=== PATIENT | female | born 1990 | race Caucasian/White ===

== ENCOUNTER → 2017-11-19 13:29 | Outpatient (CLI) | payer OTHER, SELFPAY ==
[2017-11-19 15:34] LABS: Absolute Lymphocyte Count 2.36 X10^3/ul (0.83-4.51); Absolute Neutrophil Count 6.7 X10^3/uL (2.0-7.7); Basophil# 0.03 X10^3/uL; Basophil% 0.3 % (0-1); Eosinophil# 0.16 X10^3/uL; Eosinophils% 1.6 % (0-5); Hematocrit 37.9 % (37-47); Hemoglobin 12.5 g/dl (12.0-15.0); Lymphocyte # 2.36 X10^3/ul (4.0); Lymphocyte % 23.8 % (19-41); Mean Corpuscular Hgb 28.4 pg (27.0-32.0); Mean Corpuscular Volume 86.1 fL (81-99); Mean Platelet Vol. 9.9 fl (6.2-12.0); Monocyte# 0.67 X10^3/uL; Monocyte% 6.8 % (0-10); Neutrophil # 6.68 X10^3/uL (2.7-7.7); Neutrophil % 67.3 % (47-70); Platelet Count 285 K/mm3 (150-450); RBC Distribution Width CV 12.6 % (11.6-14.6); White Blood Count 9.9 K/mm3 (4.4-11.0)
[2017-11-19 15:38] LABS: POSITIVE COUNT NO; POSITIVE DIFFERENTIAL NO; POSITIVE MORPHOLOGY NO
[2017-11-20 11:24] LABS: HIV - WCH Non-Reactive (Nonreactive); Rubella IgG 130.5 IU/mL
[2017-11-21 10:20] LABS: HEPATITIS B SURFACE AG Negative (Negative)
[2017-11-22 01:20] LABS: Rapid Plasmin Reagin (RPR) NONREACTIVE (NONREACTIVE)
== END ==
PROVIDERS: Family Provider Family Medicine; PCP Family Medicine; Visit Provider Nurse Practitioner Women's Health
DX: Z34.00 Encounter for supervision of normal first pregnancy, unspecified trimester (principal)
CPT/HCPCS: 85025; 86592; 86703; 86762; 86850; 86900; 87340

== ENCOUNTER → 2017-11-19 17:34 | Outpatient (CLI) | payer OTHER, SELFPAY ==
[2017-11-19 20:21] LABS: Chlamydia Trachomatis by PCR Negative (Negative); Neisserai gonorrhoeae by PCR Negative (Negative); Probe Check PASS; Sample Adequacy Control PASS; Specimen Processing Control PASS
== END ==
PROVIDERS: Family Provider Family Medicine; PCP Family Medicine; Visit Provider Nurse Practitioner Women's Health
DX: Z34.00 Encounter for supervision of normal first pregnancy, unspecified trimester (principal)
CPT/HCPCS: 87086; 87491; 87591

== ENCOUNTER → 2017-11-26 13:22 | Outpatient (CLI) | payer OTHER, SELFPAY ==
--- NOTE | 2017-11-26 13:27 | US_ITS ---
STUDY: FIRST TRIMESTER OBSTETRICAL ULTRASOUND REASON FOR EXAM: Female, 26 years old. dating. LMP: September 24, 2017. TECHNIQUE: Transabdominal and Transvaginal PRIOR ULTRASOUND: None. FINDINGS: There is visualization of a single gestational sac in a normal intrauterine position. The mean sac diameter (MSD) measures 2.67 cm, indicating an estimated gestational age (EGA) of 7 weeks, 6 days. The gestational sac shape is within normal limits. There is a visualized yolk sac. The yolk sac measures 5.3 mm. The placenta is non-visualized. There is visualization of a live embryo. The crown-rump length (CRL) measures 1.77 cm, indicating an estimated gestational age (EGA) of 8 weeks, 2 days. There is demonstrated cardiac activity with a heart rate of 139 bpm. The estimated gestation age (EGA) by LMP is 9 weeks, 0 days. The estimated date of delivery (NEPTALI) by LMP is July 01, 2018. The estimated gestation age (EGA) by US is 8 weeks, 1 days. The estimated date of delivery (NEPTALI) by US is July 07, 2018. The uterus measures 11.6 x 6.4 cm x 5.7 cm. There is no demonstrated uterine fibroid. The cervix is closed. There is evidence of a 1 cm x 1.3 cm x 0.6 cm resolving subchorionic bleed. The right ovary was not visualized. The left ovary measures 3.3 cm x 3.5 cm x 1.6 cm. There is no left ovarian cyst. There is no visualized left adnexal mass or complex lesion. There is no fluid in the cul de sac. US/Init OB < 14Wks US IMPRESSION: Single live uterine gestation with mean gestational age of 8 weeks and 1 day. Electronically Signed: Logan Arnold MD at 14:24 EDT Tel [phone], Service support ,
== END ==
PROVIDERS: Family Provider Family Medicine; PCP Family Medicine; Visit Provider Obstetrics & Gynecology
DX: Z34.00 Encounter for supervision of normal first pregnancy, unspecified trimester (principal)
CPT/HCPCS: 76801

== ENCOUNTER → 2018-02-18 12:18 | Outpatient (CLI) | payer OTHER, SELFPAY | PROVIDERS: Family Provider Family Medicine; PCP Family Medicine; Visit Provider Nurse Practitioner Women's Health | DX: Z34.92 Encounter for supervision of normal pregnancy, unspecified, second trimester (principal); Z3A.20 20 weeks gestation of pregnancy | CPT/HCPCS: 76805 ==

== ENCOUNTER → 2018-03-04 17:26 | Outpatient (CLI) | payer OTHER, SELFPAY | PROVIDERS: Family Provider Family Medicine; PCP Family Medicine; Visit Provider Obstetrics & Gynecology | DX: R30.0 Dysuria (principal) | CPT/HCPCS: 87086 ==

== ENCOUNTER → 2018-03-12 14:45 | Outpatient (CLI) | payer OTHER, SELFPAY | PROVIDERS: Visit Provider Obstetrics & Gynecology | DX: O23.40 Unspecified infection of urinary tract in pregnancy, unspecified trimester (principal) | CPT/HCPCS: 87086 ==

== ENCOUNTER → 2018-04-07 17:09 | Outpatient (CLI) | payer OTHER, SELFPAY ==
[2018-04-07 18:04] LABS: Absolute Lymphocyte Count 2.57 X10^3/ul (0.83-4.51); Absolute Neutrophil Count 7.5 X10^3/uL (2.0-7.7); Basophil# 0.02 X10^3/uL; Basophil% 0.2 % (0-1); Eosinophils% 0.9 % (0-5); Hematocrit 32.7 % (37-47); Hemoglobin 10.8 g/dl (12.0-15.0); Lymphocyte # 2.57 X10^3/ul (4.0); Lymphocyte % 22.9 % (19-41); Mean Corpuscular Hgb 29.8 pg (27.0-32.0); Mean Corpuscular Volume 90.1 fL (81-99); Mean Platelet Vol. 9.3 fl (6.2-12.0); Monocyte# 0.98 X10^3/uL; Monocyte% 8.8 % (0-10); Neutrophil # 7.48 X10^3/uL (2.7-7.7); Neutrophil % 66.8 % (47-70); Platelet Count 228 K/mm3 (150-450); RBC Distribution Width CV 13.7 % (11.6-14.6); RBC Distribution Width SD 44.8 fl (35.1-43.9); Red Blood Count 3.63 M/mm3 (4.2-5.4); White Blood Count 11.2 K/mm3 (4.4-11.0)
[2018-04-07 18:10] LABS: POSITIVE COUNT NO; POSITIVE DIFFERENTIAL NO; POSITIVE MORPHOLOGY NO
[2018-04-07 18:19] LABS: Glucose Challenge Gest 1H 50g 78 mg/dL (70-140)
== END ==
PROVIDERS: Family Provider Family Medicine; PCP Family Medicine; Referring Provider Obstetrics & Gynecology; Visit Provider Obstetrics & Gynecology
DX: Z34.00 Encounter for supervision of normal first pregnancy, unspecified trimester (principal)
CPT/HCPCS: 36415; 82950; 85025

== ENCOUNTER → 2018-06-09 18:59 | Outpatient (CLI) | payer OTHER, SELFPAY ==
[2018-06-09 16:34] VITALS: BMI 29.8
--- OUTSIDE RECORDS SUMMARY | 2018-07-27 03:06 | XMS RPT_ITS ---
:1990 Author Organization [facility] Support Name Relationship Address Phone NICHOLAS COLON Unavailable [address] + [place] [address] SREE, KAYY Unavailable [address] + [place] [id number] [facility] Unavailable [address] + [place] [address] ALTENBURGER, NICHOLAS Unavailable [address] + [place] [address] SREE, KAYY Unavailable [address] + [place] [address] [facility] Unavailable [address] + [place] [address] ALTENBURGER, NICHOLAS Unavailable [address] + [place] [address] SREE, KAYY Unavailable [address] + [place] [address] [facility] Unavailable [address] + [place] [address] ALTENBURGER, NICHOLAS Unavailable [address] + [place] [address] SREE, KAYY Unavailable [address] + [place] [phone] [facility] Unavailable [address] + [place] [address] ALTENBURGER, NICHOLAS Unavailable [address] + [place] [address] SREE, KAYY Unavailable [address] + [place] [address] [facility] Unavailable [address] + [place] [address] ALTENBURGER, NICHOLAS Unavailable [address] + [place] [address] SREE, KAYY Unavailable [address] + [place] [address] [facility] Unavailable [address] + [place] [address] SREE, KAYY Unavailable [address] + [facility] [address] SREE, NICHELLE Unavailable [address] + [facility] [address] [facility] Unavailable [address] + [place] [address] ALTENBURGER, NICHOLAS Unavailable [address] + [place] [address] SREE, KAYY Unavailable [address] + [place] [address] [facility] Unavailable [address] + [place] [address] ALTENBURGER, NICHOLAS Unavailable [address] + [place] [address] SREE, KAYY Unavailable [address] + [place] [address] [facility] Unavailable [address] + [place] [address] ALTENBURGER, NICHOLAS Unavailable [address] + [place] [address] SREE, KAYY Unavailable [address] + [place] [address] [facility] Unavailable [address] + [place] [address] ALTENBURGER, NICHOLAS Unavailable [address] + [place] [address] SREE, KAYY Unavailable [address] + [place] [address] [facility] Unavailable [address] + [place] [address] SREE, KAYY Unavailable [address] + [place] [address] SREE, NICHELLE Unavailable [address] + [place] [address] [facility] Unavailable [address] + [place] [address] ALTENBURGER, NICHOLAS Unavailable [address] [facility] + [place] [address] SREE, KAYY Unavailable [address] + [place] [address] [facility] Unavailable [address] + [place] [address] ALTENBURGER, NICHOLAS Unavailable [address] + [place] [address] SREE, KAYY Unavailable [address] + [place] [address] [facility] Unavailable [address] + [place] [address] SREE, KAYY Unavailable [address] + [place] [address] SREE, NICHELLE Unavailable [address] + [place] [address] [facility] Unavailable [address] + [place] [address] ALTENBURGER, NICHOLAS Unavailable . + [place] [address] SREE, KAYY Unavailable [address] + [place] [address] WC Unavailable [address] + [place] [address] SREE, KAYY Unavailable [address] + [place] [address] SREE, NICHELLE Unavailable [address] + [place] [address] WC Unavailable [address] + [place] [address] ALTENBURGER, NICHOLAS Unavailable . + [place] [address] SREE, KAYY Unavailable [address] + [facility] [place] [address] [facility] Unavailable [address] + [place] [address] ALTENBURGER, NICHOLAS Unavailable . + [place] [address] SREE, KAYY Unavailable [address] + [facility] [place] [address] [facility] Unavailable [address] + [place] [address] ALTENBURGER, NICHOLAS Unavailable . + [place] [address] SREE, KAYY Unavailable [address] + [facility] [place] [address] [facility] Unavailable [address] + [place] [address] ALTENBURGER, NICHOLAS Unavailable Unavailable + SREE, KAYY Unavailable [address] + [facility] [place] [address] [facility] Unavailable [address] + [place] [address] ALTENBURGER, NICHOLAS Unavailable . + [place] [address] SREE, KAYY Unavailable [address] + [facility] [place] [address] [facility] Unavailable [address] + [place] [address] SREE, KAYY Unavailable [address] + [facility] [place] [address] SREE, NICHELLE Unavailable [address] + [facility] [place] [address] [facility] Unavailable [address] + [place] [address] SREE, KAYY Unavailable [address] + [facility] [place] [address] SREE, NICHELLE Unavailable [address] + [facility] [place] [address] WC Unavailable [address] + [place] [address] SREE, KAYY Unavailable [address] + [facility] [place] [address] SREE, NICHELLE Unavailable [address] + [place] [address] WC Unavailable [address] + [place] [address] SREE, AKYY Unavailable [address] + [facility] [place] [address] SREE, NICHELLE Unavailable [address] + [facility] [place] [address] WC Unavailable [address] + [place] [address] SREE, KAYY Unavailable [address] + [place] [address] SREE, NICHELLE Unavailable [address] + [facility] [place] [address] WC Unavailable [address] + [place] [address] SREE, KAYY Unavailable [address] + [facility] [place] [address] SREE, NICHELLE Unavailable [address] + [facility] [place] [address] WC Unavailable [address] + [place] [address] SREE, KAYY Unavailable [address] + [facility] [place] [address] SREE, NICHELLE Unavailable [address] + [facility] [place] [address] WC Unavailable [address] + [place] [address] SREE, KAYY Unavailable [address] + [facility] [place] [address] SREE, NICHELLE Unavailable [address] + [place] [address] [address] Un[address] + [place] [address] SREE, KAYY Unavailable [address] + [place] [address] SREE, NICHELLE Unavailable [address] + [place] [address] WC Unavailable [address] + [place] [address] SREE, KAYY Unavailable [address] + [place] [address] SREE, NICHELLE Unavailable [address] + [place] [id number] [facility] Unavailable [address] + [place] [address] SREE, KAYY Unavailable [address] + [place] [address] SREE, NICHELLE Unavailable [address] + [place] [id number] [facility] Unavailable [address] + [place] [address] SREE, KAYY Unavailable [address] + [place] [address] SREE, NICHELLE Unavailable [address] + [place] [id number] [facility] Unavailable [address] + [place] [address] SREE, KAYY Unavailable [address] + [place] [address] SREE, NICHELLE Unavailable [address] + [place] [id number] [facility] Unavailable [address] + [place] [address] SREE, KAYY Unavailable [address] + [place] [address] SREE, NICHELLE Unavailable [address] + [place] [id number] [facility] Unavailable [address] + [place] [address] SREE, KAYY Unavailable [address] + [place] [address] SREE, NICHELLE Unavailable [address] + [place] [id number] [facility] Unavailable [address] + [place] [address] Care Team Providers Name Role Phone Jennie Grover Attending Unavailable Jennie Grover Primary Care Unavailable Yani Campoverde Attending Unavailable JENNIE GROVER Referring Unavailable Marcanthony, Yani Attending Unavailable STENCEL, JENNIE Primary Care Unavailable Marcanthony, Yani Referring Unavailable Marcanthony, Yani Attending Unavailable STENCEL, JENNIE Referring Unavailable Julio, Wolf Attending Unavailable STENCEL, JENNIE Referring Unavailable Kavon, Karey Attending Unavailable STENCEL, JENNIE Referring Unavailable STENCEL, JENNIE Primary Care Unavailable Esopus, Karey Attending Unavailable STENCEL, JENNIE Primary Care Unavailable Marcanthony, Yani Attending Unavailable STENCEL, JENNIE Referring Unavailable Marcanthony, Yani Attending Unavailable STENCEL, JENNIE Referring Unavailable Marcanthony, Yani Attending Unavailable Marcanthony, Yani Referring Unavailable STENCEL, JENNIE Primary Care Unavailable Marcanthony, Yani Admitting Unavailable Marcanthony, Yani Admitting Unavailable Marcanthony, Yani Attending Unavailable Marcanthony, Yani Referring Unavailable STENCEL, JENNIE Primary Care Unavailable Marcanthony, Yani Consulting Unavailable Marcanthony, Yani Admitting Unavailable Esopus, Karey Attending Unavailable Marcanthony, Yani Referring Unavailable STENCEL, JENNIE Primary Care Unavailable Marcanthony, Yani Consulting Unavailable Marcanthony, Yani Admitting Unavailable Kavon, Karey Attending Unavailable Marcanthony, Yani Referring Unavailable STENCEL, JENNIE Primary Care Unavailable Marcanthony, Yani Consulting Unavailable Esopus, Karey Attending Unavailable STENCEL, JENNIE Primary Care Unavailable Esopus, Karey Referring Unavailable Marcanthony, Yani Attending Unavailable STENCEL, JENNIE Primary Care Unavailable Marcanthony, Yani Attending Unavailable STENCEL, JENNIE Referring Unavailable STENCEL, JENNIE Primary Care Unavailable Kavon, Karey Attending Unavailable STENCEL, JENNIE Referring Unavailable STENCEL, JENNIE Primary Care Unavailable Marcanthony, Yani Attending Unavailable STENCEL, JENNIE Referring Unavailable STENCEL, JENNIE Primary Care Unavailable Kavon, Karey Attending Unavailable STENCEL, JENNIE Referring Unavailable Marcanthony, Yani Attending Unavailable STENCEL, JENNIE Referring Unavailable Marcanthony, Yani Attending Unavailable STENCEL, JENNIE Referring Unavailable Marcanthony, Yani Attending Unavailable STENCEL, JENNIE Referring Unavailable Marcanthony, Yani Attending Unavailable STENCEL, JENNIE Referring Unavailable STENCEL, JENNIE Primary Care Unavailable Marcanthony, Yani Attending Unavailable STENCEL, JENNIE Referring Unavailable STENCEL, JENNIE Primary Care Unavailable Esopus, Karey Attending Unavailable STENCEL, JENNIE Primary Care Unavailable Marcanthony, Yani Attending Unavailable STENCEL, JENNIE Referring Unavailable STENCEL, GLEN ALLAN Primary Care Unavailable Marcanthony, Yani Attending Unavailable STENCEL, JENNIE Primary Care Unavailable Marcanthony, Yani Referring Unavailable ASSESSMENT, HEALTH RISK Attending Unavailable ASSESSMENT, HEALTH RISK Referring Unavailable STENCEL, JENNIE Primary Care Unavailable Marcanthony, Yani Attending Unavailable Marcanthony, Yani Attending Unavailable STENCEL, JENNIE Referring Unavailable Marcanthony, Yani Attending Unavailable Marcanthony, Yani Referring Unavailable STENCEL, JENNIE Primary Care Unavailable Marcanthony, Yani Attending Unavailable STENCEL, JENNIE Referring Unavailable Esopus, Karey Attending Unavailable STENCEL, JENNIE Referring Unavailable Marcanthony, Yani Attending Unavailable STENCEL, JENNIE Referring Unavailable Marcanthony, Yani Attending Unavailable STENCEL, JENNIE Referring Unavailable Marcanthony, Yani Admitting Unavailable Marcanthony, Yani Attending Unavailable Marcanthony, Yani Referring Unavailable STENCEL, JENNIE Primary Care Unavailable Marcanthony, Yani Attending Unavailable STENCEL, JENNIE Referring Unavailable Esopus, Karey Attending Unavailable STENCEL, JENNIE Referring Unavailable STENCEL, JENNIE Primary Care Unavailable PROBLEMS PROBLEMS DATE TYPE CONDITION / CODE ATTENDING STATUS SOURCE 06/16/2018 Unknown O23.43 - Marcanthony, Active [place] Unspecified [facility] infection of Hospital urinary tract in Repository , third trimester / O23.43(ICD-10) 06/16/2018 Unknown Z34.03 - Encounter Marcanthony, Active [place] for supervision of [facility] normal first Hospital , third Repository trimester / Z34.03(ICD-10) 06/16/2018 Unknown Z3A.37 - 37 weeks Marcanthony, Active [place] gestation of [facility] / Hospital Z3A.37(ICD-10) Repository 06/16/2018 Unknown O99.820 - Marcanthony, Active [place] Streptococcus B [facility] Hospital complicating Repository / O99.820(ICD-10) 06/10/2018 Unknown Z34.90 - Encounter Marcanthony, Active [place] for supervision of [facility] normal , Hospital unspecified, Repository unspecified trimester / Z34.90(ICD-10) 06/09/2018 Unknown Z3A.36 - 36 weeks Marcanthony, Active [place] gestation of [facility] / Hospital Z3A.36(ICD-10) Repository 06/02/2018 Unknown Z3A.35 - 35 weeks Marcanthony, Active [place] gestation of [facility] / Hospital Z3A.35(ICD-10) Repository 05/05/2018 Unknown O23.41 - Marcanthony, Active [place] Unspecified [facility] infection of Hospital urinary tract in Repository , first trimester / O23.41(ICD-10) 05/05/2018 Unknown Z3A.31 - 31 weeks Marcanthony, Active [place] gestation of [facility] / Hospital Z3A.31(ICD-10) Repository 04/07/2018 Unknown Z34.00 - Encounter Marcanthony, Active [place] for supervision of [facility] normal [facility] Hospital , Repository unspecified trimester / Z34.00(ICD-10) 04/07/2018 Unknown Z34.02 - Encounter Marcanthony, Active [place] for supervision of [facility] normal [facility] Hospital , second Repository trimester / Z34.02(ICD-10) 04/07/2018 Unknown Z3A.19 - 19 weeks Marcanthony, Active [place] gestation of [facility] / Hospital Z3A.19(ICD-10) Repository 03/13/2018 Unknown O23.40 - Marcanthony, Active [place] Unspecified [facility] infection of Hospital urinary tract in Repository , unspecified trimester / O23.40(ICD-10) 03/05/2018 Unknown R30.0 - Dysuria / Marcanthony, Active [place] R30.0(ICD-10) [facility] Repository 02/06/2018 Unknown Z23 - Encounter for Marcanthony, Active [place] immunization / [place] [address](ICD-10) Hospital Repository PROCEDURES PROCEDURES No Procedure Records FoundRESULTS RESULTS DISCHARGE INSTRUCTION Observed: 07/10/2018 Status: F Source: [place] 7:33 AM [facility] REPOSITORY [facility] Medical Records Department [address] [place] [address] Instructions for Home/Discharge Instructions 07/10/18 0733 MR#: [id number] Acct: [id number] Name: JED COLON Alfonso Rep #: [id number] : 1990 27 From: Karey Jacobson NP-C PCP: Jennie Grover MD Status: ADM IN Additional Instructions: If you experience any of the following, contact your healthcare provider. * Bleeding that soaks a pad every hour for 2 hours * Fever 100.4 or higher * Unrelieved incision or abdominal pain * Swelling, redness, discharge or bleeding from your incision or episiotomy site * Your incision begins to separate * Problems urinating (including inability to urinate or burning while urinating). * Visual changes * Severe headache * Flu-like symptoms * Pain or redness in one of both of your breasts * Pain, warmth, tenderness or swelling in your legs, especially the calf area * Frequent nausea and vomiting * Symptoms of depression or anxiety If you experience any of the following, call 911 or go to the nearest Emergency Room. * Chest pain * Problems breathing * Seizure activity * Partial or complete paralysis of a body part, slurred speech, weakness or drooping of the face, or a sudden inability to walk or hold your balance Allergies/Adverse Reactions: Allergies Penicillins Allergy (Verified 07/07/18 12:39) Unknown Medications to take at Discharge folic acid 800 mcg tablet 800 mcg PO QDAY 07/04/17 vitamin#30 30 mg iron-10 mg iron-folic acid 1 mg- omg3 capsule 1 cap PO DAILY cap 06/16/18 docusate sodium 100 mg capsule 100 mg PO DAILY 07/03/18 Ranitidine HCl [Zantac] 150 mg PO DAILY 07/07/18 Primary Care Physician: Jennie Grover MD [Primary Care Provider] - Test Results: Test results from this visit will be discussed in further detail at your follow-up appointment, if applicable. 07/10/18 0733 <Electronically signed by Karey YANEZ> Date Karey YANEZ CC: Jennie Grover MD Signed BOTTLE [facility]ER OFFICE VISIT Observed: 07/10/2018 Status: F Source: [place] REPORT 4:40 AM [facility] REPOSITORY [facility] [address] [place] [address] OFFICE VISIT Date of Service: 07/03/18 MR#: [id number] Acct: [id number] Name: BEBOJED N Rep #: [id number] : 1990 Provider: Yani Campoverde MD Age/Sex: 27/F Location: [facility] Status: Signed Intake Vital Signs07/03/18 Height 5 ft 10 in 07/03/18 Weight: 205 lb 6 oz 07/03/18 Body Mass Index (BMI) 29.5 07/03/18 Blood Pressure 120/82 H 06/03/18 Body Mass Index (BMI) 29.8 Intake Visit Reasons: 40 week ob Chief Complaint: est ob Manager Market Research Required: No Is patient in pain?: No Allergies Penicillins Allergy (Verified 07/07/18 12:39) Unknown Medications folic acid 800 mcg tablet 800 mcg PO QDAY 07/04/17 [History Confirmed 07/07/18] vitamin#30 30 mg iron-10 mg iron-folic acid 1 mg- omg3 capsule 1 cap PO DAILY cap 06/16/18 [History Confirmed 07/07/18] docusate sodium 100 mg capsule 100 mg PO DAILY 07/03/18 [History Confirmed 07/07/18] Ranitidine HCl [Zantac] 150 mg PO DAILY 07/07/18 [History Confirmed 07/07/18] Last Menstral Period: 09/24/17 Zika: Zika virus screening: Negative : No PFSH PFSH Surgical History History of tonsillectomy (Acute) Family History Grandfather Diabetes Social History Smoking Status: Never smoker alcohol intake: current details: social substance use type: does not use caffeine: No what type of physical activity do you participate in: none frequency: 1-2 times per week seatbelt use: always do you feel safe at home: Yes additional social history: 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 DatName GA/WeeksOutcome Route [facility] Yasmeen Aguirre LgAnesthesDel LocaProviderFOB e ht en ia tn 07/08/18Brynlee 40 live birNSVD Female [facility] JAYASHREE th - ful l term Delivery Date: 07/08/18 On 07/09/18 @ 09:02 Essence Gaytan PROM HPI 40 week ob: Details: JED COLON is a 27 year old who presents for routine OB visit. ACOG First Trimester First Trimester: Discussed Second Trimester Second Trimester: Signs and Symptoms of Labor, Selecting a care provider, Reproductive Life Planning, Care Planning, Depression/Anxiety and Intimate Partner Violence; discussed Tobacco Cessation Diagnostics Diagnostics Labs Blood Type O POSITIVE 07/07/18 Antibody Screen NEGATIVE 07/07/18 Hct 36.0 % (37-47) L 07/07/18 Hgb 11.6 g/dl (12.0-15.0) L 07/07/18 Glucose 1 Hr 50 gm 78 mg/dL (70-140) 04/07/18 Group B Strep DNA Cancelled 06/09/18 Rhogam given: No 07/09/18 Pap Smear Negative 04/14/14 Obstetrics Ultrasound 02/18/18 VZV IgG Antibody 292 index (Immune >165) 02/04/14 Rubella IgG Antibody 130.5 IU/mL 11/19/17 RPR NONREACTIVE (NONREACTIVE) 11/19/17 Hep Bs Antigen Negative (Negative) 11/19/17 Chlam trachomat DNA PCR Negative (Negative) 11/19/17 N.gonorrhoeae DNA (PCR) Negative (Negative) 11/19/17 Miscellaneous Test 07/04/17 Details: HIV: Urine Culture: Sequential Screen: NIPT Screen: Assessment AND Plan Problems 1. Encounter for supervision of normal first in third trimester Z34.00 PRR NEPTALI 07/07/18 gender suprise Spouse Nicholas 2. 38 weeks gestation of Z34.90 genetic, carrier, NTD screening declined. normal anatomy scan. 3. Urinary tract infection in mother during third trimester of O23.40 Repeat culture-neg Plan fht 140s patient seen no labor yet movement and labor precautions reviewed. ACOG trimester education reviewed and updated. see problem list details for updated plan management information and see below for orders placed at this visit. GA appropriate handout given. Orders Orders: Coding Level of Care Code OB Routine Diagnoses Encounter for supervision of normal first in third trimester Z34.00 38 weeks gestation of Z34.90 Urinary tract infection in mother during third trimester of O23.40 07/10/18 0440 <Electronically signed by Yani Campoverde MD> Date Yani Campoverde MD [facility] Signature: Date (if applicable) CC: OPERATIVE REPORT Observed: 07/09/2018 Status: F Source: [place] 4:43 AM [facility] REPOSITORY [facility] Medical Records Department [address] [place] [address] Operative Report 07/08/18 0809 MR#: [id number] Acct: [id number] Name: JED COLON Rep #: [id number] : 1990 27 From: Yani Campoverde MD PCP: Jennie Grover MD Status: ADM IN [id number] - Problem List (1) PROM (premature rupture of membranes) Status: Acute (2) GBS (group B Streptococcus carrier), +RV culture, currently Status: Acute Comment: treat in labor with clindamycin (3) UTI (urinary tract infection) during Status: Acute Qualifiers: Comment: Repeat culture-neg (4) Status: Acute Qualifiers: Comment: genetic, carrier, NTD screening declined. normal anatomy scan. (5) Supervision of normal first Status: Acute Qualifiers: Comment: PRR NEPTALI 07/07/18 gender suprise Spouse Nicholas Vaginal Delivery Maternal Presentation: Spontaneous Rupture of Membranes prom with induction of labor with cytotec Method of Induction: Cytotec Medical Reason for Induction: Premature Rupture of Membranes Amniotic Membrane Rupture Type: Spontaneous at home Amniotic Fluid Description: Clear Final NEPTALI: 07/07/18 Gestational age: 40 Weeks and 1 Days Date of Procedure: 07/08/18 Pre-Operative Diagnosis: prom Post-Operative Diagnosis: prom Surgery/ Procedure Performed: Spontaneous Vaginal Delivery Type of Anesthesia: None Description of Procedure: Patient began pushing and delivered the head in the OREN presentation. The head was delivered atraumatically . The anterior and posterior shoulders delivered without complication followed by the rest of the and the was placed on the maternal abdomen. Delayed cord clamping was employed for approximately 60 seconds. Cord was clamped and cut and gentle traction was applied to the cord and the placenta delivered spontaneously immediately following it was noted to be intact with three-vessel cord. The perineum and vagina were inspected and noted to have no laceration. mild uterine atony was noted and bimanual massage and methergine were given. EBL was 500 cc. Patient and tolerated delivery well. Presentation: OREN Placental Delivery Description: Spontaneous Placenta Disposition: [facility] Cord Vessel Description: 3 Vessels Cord Entanglement: None Estimated Blood Loss: 500 A gender: Female Episiotomy Description: None Laceration: None Medications given after delivery: IV Pitocin, IM Methergin Complications: - - mild uterine atony 07/09/18 0443 <Electronically signed by Yani Campoverde MD> Date Yani Campoverde MD CC: Jennie Grover MD; Yani Campoverde MD Signed HISTORY AND PHYSICAL Observed: 07/08/2018 Status: F Source: [place] EXAM 8:09 AM [facility] REPOSITORY [facility] Medical Records Department [address] [place] [address] History and Physical 07/08/18 0807 MR#: [id number] Acct: [id number] Name: JED COLON Rep #: [id number] : 1990 27 From: Yani Campoverde MD PCP: Jennie Grover MD Status: ADM IN Location: [id number] - Problem List (1) PROM (premature rupture of membranes) Status: Acute (2) GBS (group B Streptococcus carrier), +RV culture, currently Status: Acute Comment: treat in labor with clindamycin (3) UTI (urinary tract infection) during Status: Acute Qualifiers: Comment: Repeat culture-neg (4) Status: Acute Qualifiers: Comment: genetic, carrier, NTD screening declined. normal anatomy scan. (5) Supervision of normal first Status: Acute Qualifiers: Comment: PRR NEPTALI 07/07/18 gender suprise Spouse Nicholas History Date of Admission: 07/07/18 Final NEPTALI: 07/07/18 Gestational age: 40 Weeks and 1 Days History of this : This is a 27 year-old, at 40 weeks gestational age present swith clear ROM 9:30 am 07/07/18. she denie sany vb and is having occasional ctx. she has had an uncomplicated Surgical History: Surgical History (Last Reviewed 07/03/18 @ 09:36 by Minnie Rivera) History of tonsillectomy Z98.890, Z90.89 Allergies Penicillins Allergy (Verified 07/07/18 12:39) Unknown Home Medications: Home Medications folic acid 800 mcg tablet 800 mcg PO QDAY 07/04/17 vitamin#30 30 mg iron-10 mg iron-folic acid 1 mg- omg3 capsule 1 cap PO DAILY cap 06/16/18 docusate sodium 100 mg capsule 100 mg PO DAILY 07/03/18 Ranitidine HCl [Zantac] 150 mg PO DAILY 07/07/18 Smoking Status: Never smoker Alcohol: None Number of Fetus(es): 1 Heart Tracin moderate variability reactive no decelerations category I tracing TOCO Analysis: irregular History Past Pregnancies: Past Pregnancies Delivery Name GA/Weeks Outcome Route WeiInfant GeLabor LenAnesthesiDelivery Provider FOB Date [facility] Location Labs: Mom[facility] Labs AND Results WBC 9.3 RBC 3.99 L Hgb 11.6 L Hct 36.0 L MCV 90.2 MCH 29.1 Course Did the patient receive Yes care? Labs Blood Type: O Current Obstetrical History Gestational Diabetes No Incompetent Cervix No Infertility No IUGR No Macrosomia No Hypertension/Pre-eclampsia No Placenta Previa/Abruption No PTL/PROM No Uterine anomaly No Oligohydramnios No Polyhydramnios No Multiple gestation No Past Medical History Asthma No Diabetes No Hypertension No Heart disease No Mitral valve prolapse No Neurologic/Seizure disorder/ No Migraines Kidney disease No Liver disease No Varicosities No Clotting disorders/Hx of DVT No Thyroid Dysfunction No Other medical diseases No Psychiatric disorders No Major trauma No Abnormal PAP smear No Sleep apnea No Mammogram in the last 2 years No Social History Marital Status: Alleged father Nicholas Colon Hx Smoking No Smoking Status Never smoker How long have you used N/A substances (years)? What date/time did you last N/A use any of the above? Have you had any previous N/A inpatient or outpatient treatment Expected Infant Delivery Method: Spontaneous Vaginal Review of Systems Constitutional: Denies: Fever, Malaise Eyes: Denies: Blurred vision, Vision Change HEENT: Denies: Head Aches, Visual Changes Cardiovascular: Denies: Chest Pain, Palpitations Respiratory: Denies: Cough, Shortness of Breath, Wheezing Gastrointestinal: Denies: Abdominal Pain, Diarrhea, Nausea, Vomiting Genitourinary: Denies: Dysuria, Hematuria Musculoskeletal: Denies: Joint Pain, Muscle pain Skin: Denies: Lesions, Rash Neurological: Denies: Blurred vision, Focal weakness, Headaches Psychiatric: Denies: Anxiety, Depression Endocrine: Denies: Heat/ Cold Intolerance Hematologic/ Lymphatic: Denies: Easy Bruising, Easy Bleeding Physical Exam General: Alert, Cooperative, No apparent distress HEENT: Atraumatic, Normocephalic. Negative for: Thyromegaly, Lymphadenopathy Cardiovascular: Regular rate Lungs: Normal air movement Abdomen: Soft, Non Tender, Gravid Neurological: Deep Tendon Reflexes 2+/4 and Symmetrical, Neuro grossly intact. 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 Negative for: Vulvar lesions Estimated gestational size: Appropriate for gestational size Presentation: Cephalic Assessment/Plan All Active Problems (Last Reviewed 07/03/18 @ 09:36 by Minnie Rivera) PROM (premature rupture of membranes) (Acute) Gastroenteritis (Acute) GBS (group B Streptococcus carrier), +RV culture, currently (Acute) UTI (urinary tract infection) during (Acute) (Acute) Supervision of normal first (Acute) This is a 27 year-old, , at 40 weeks gestational age presents PROM Patient presents PROM- recommend cytotec and then plan expectant management for , pitocin PRN if needed]. Pain management: minimal intervention. GBS positive plan IV clindamycin due to sensitivities. Management of any complications: none I have reviewed the [facility] and made any clinically relevant updates. 07/08/18 0809 <Electronically signed by Yani Campoverde MD> Date [facility] Campoverde MD [facility] Signature: Date (if applicable) CC: Jennie Grover MD; Yani Campoverde MD Signed CBC-COMPLETE BLOOD CNT Collected: 07/07/2018 Status: F Source: [place] NO DIFF 1:40 PM [facility] REPOSITORY TYPE CODE TESTS RESULT OUT OF RANGE REFERENCE UNITS LAB L100.1000 4.4-11.0 K/mm3 Normal WBC 9.3 LAB L100.1200 4.2-5.4 M/mm3 Low RBC 3.99 LAB L100.1300 12.0-15.0 g/dl Low HGB 11.6 LAB L100.1400 37-47 % Low HCT 36.0 LAB L100.1500 81-99 fL Normal MCV 90.2 LAB L100.1600 27.0-32.0 pg Normal MCH 29.1 LAB L100.1700 32-36 g/gl Normal MCHC 32.2 LAB L100.1810 11.6-14.6 % Normal RDW CV 13.5 LAB L100.1820 35.1-43.9 fl High RDW SD 44.3 LAB L100.1900 150-450 K/mm3 Normal PLT 266 LAB L100.2000 6.2-12.0 fl Normal MPV 9.9 Performed By: #### L100.0500 #### [facility] [address] [place], [place], [address] TYPE AND SCREEN Collected: 07/07/2018 Status: F Source: [place] 1:40 PM [facility] REPOSITORY Order Comment: Reason for Type AND Screen/Red Cells: ROUTINE TYPE CODE TESTS RESULT OUT OF RANGE REFERENCE UNITS LAB B10.0800 O Normal BLOOD TYPE GEL POSITIVE LAB B100.4000 Normal Antibody NEGATIVE Screen Performed By: #### B101.7450 #### [facility] [address] [place], [address] (ROM) RUPTURE OF Collected: 07/07/2018 Status: F Source: [place] [facility] 12:40 PM [facility] REPOSITORY TYPE CODE TESTS RESULT OUT OF REFERENCE UNITS RANGE LAB L205.1310 Negative High ROM POSITIVE Result Comment: Amniotic fluid present indicates rupture of Membranes. RESULTS CALLED TO JAYASHREE 07/07/18 Gianna Guerra. REPORT READ BACK BY JAYASHREE . Performed By: #### L205.1000 #### [facility] [address] [place], [address] BOTTLE PACKER OFFICE VISIT Observed: 06/26/2018 Status: F Source: [place] REPORT 5:02 PM [facility] REPOSITORY [facility] [address] [place] [address] OFFICE VISIT Date of Service: 06/26/18 MR#: [id number] Acct: [id number] Name: JED COLON Rep #: [id number] : 1990 Provider: Yani Campoverde MD Age/Sex: 27/F Location: [facility] Status: Signed Intake Vital Signs06/26/18 Body Mass Index (BMI) 29.8 06/26/18 Height 5 ft 10 in 06/26/18 Weight: 207 lb 5 oz 06/26/18 Body Mass Index (BMI) 29.7 06/26/18 Blood Pressure 114/78 Intake Visit Reasons: est ob 39 weeks Chief Complaint: Est OB Accompanied by: Is patient in pain?: No Allergies Penicillins Allergy (Verified 06/26/18 16:20) Unknown Medications folic acid 800 mcg tablet 800 mcg PO QDAY 07/04/17 [History Confirmed 06/26/18] acetaminophen 325 mg tablet 325 mg PO Q6H PRN 03/04/18 [History Confirmed 06/26/18] vitamin#30 30 mg iron-10 mg iron-folic acid 1 mg- omg3 capsule cap PO cap 06/16/18 [History Confirmed 06/26/18] ondansetron HCl 4 mg tablet 4 mg PO TID-QID PRN #20 tab 06/17/18 [Rx Confirmed 06/26/18] Last Menstral Period: 09/24/17 Zika: Zika virus screening: Negative : No PFSH PFSH Surgical History History of tonsillectomy (Acute) Family History Grandfather Diabetes Social History Smoking Status: Never smoker alcohol intake: current details: social substance use type: does not use caffeine: No what type of physical activity do you participate in: none frequency: 1-2 times per week seatbelt use: always do you feel safe at home: Yes 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 OB Visit NEPTALI Calculator Estimated Delivery Date 07/07/18 Based on Ultrasound Date 11/26/17 Current WG 38w 3d Number 1 Expected Delivery Route/Plan Specific Issue/Plans flu vaccine: yes minichart given: yes tdap vaccine: given rhogam: na LARC form signed: declined labor support person: Nicholas pain management: minimal intervention cut cord/dad catch: cut yes, maybe : yes PP control planned: condoms special requests: none Initial Weight: 195 lb Date Weight BP Urine PrFHR FuHt Pres MoCTX DilationFetal StVisit NoProviderComments E ot v te GA G Effac lucose ed Visit Notes Visit Date: 06/26/18 no vb lof good fm no regular ctx Yani Campoverde MD on 06/26/18 no vb lof good fm no regular ctx Yani Campoverde MD on 06/26/18 Visit Date: 06/16/18 no vb lof good fm no regular ctx. 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 Now just feels weak and foggy. Karey Jacobson NP-C on 05/01/18 Visit Date: 04/21/18 no vb lof good fm no regular ctx Yani Campoverde MD on 04/23/18 Visit Date: 04/07/18 no vb cramping lof good fm noregualr ctx Yani Campoverde MD on 04/07/18 Visit Date: 03/12/18 no vb cramping. discussed weight gain Yani Campoverde MD on 03/12/18 Visit Date: 03/04/18 No visit notes to display Visit Date: 02/12/18 no vb cramping us scheduled Yani Campoverde MD on 02/12/18 Visit Date: 01/16/18 Doing well. No longer with dizziness or nausea. No VB, LOF. RENATA Harris on 01/16/18 ACOG First Trimester First Trimester: Discussed Second Trimester Second Trimester: Signs and Symptoms of Labor, Selecting a care provider, Reproductive Life Planning, Care Planning, Depression/Anxiety and Intimate Partner Violence; discussed Tobacco Cessation Diagnostics Diagnostics Labs Hct 32.7 % (37-47) L 04/07/18 Hgb 10.8 g/dl (12.0-15.0) L 04/07/18 Glucose 1 Hr 50 gm 78 mg/dL (70-140) 04/07/18 Group B Strep DNA Cancelled 06/09/18 Details: HIV: Urine Culture: Sequential Screen: NIPT Screen: Assessment AND Plan Problems 1. GBS (group B Streptococcus carrier), +RV culture, currently O99.820 treat in labor with clindamycin 2. Urinary tract infection in mother during third trimester of O23.43 Repeat culture-neg 3. 38 weeks gestation of Z3A.38 genetic, carrier, NTD screening declined. normal anatomy scan. 4. Encounter for supervision of normal first in third trimester Z34.03 PRR NEPTALI 07/07/18 gender suprise Spouse Nicholas 5. Gastroenteritis K52.9 Plan ACOG trimester education reviewed and updated. see problem list details for updated plan management information and see below for orders placed at this visit. [place] appropriate handout given. Coding Level of Care Code OB Routine Diagnoses GBS (group B Streptococcus carrier), +RV culture, currently O99.820 Urinary tract infection in mother during third trimester of O23.43 Trimester: third trimester 38 weeks gestation of Z3A.38 Weeks of gestation: 38 weeks Encounter for supervision of normal first in third trimester Z34.03 Trimester: third trimester Gastroenteritis K52.9 06/26/18 1702 <Electronically signed by Yani Campoverde MD> Date Yani Campoverde MD Cosigner Signature: Date (if applicable) CC: URGENT CARE VISIT Observed: 06/17/2018 Status: F Source: PISECO REPORT 6:53 PM [facility] REPOSITORY [facility] [address] [place] [address] OFFICE VISIT Date of Service: 06/17/18 MR#: [id number] Acct: [id number] Name: JED COLON Rep #: [id number] : 1990 Provider: Wolf REID Age/Sex: 27/F Location[place] [facility] Status: Signed Intake Vital Signs06/17/18 Body Mass Index (BMI) 29.8 06/17/18 Height 5 ft 10 in 06/17/18 Weight: 214 lb 06/17/18 Body Mass Index (BMI) 30.7 06/17/18 Blood Pressure 136/84 H 06/17/18 Respiratory Rate 14 Intake Visit Reasons: FLU/ 37 WKS Chief Complaint: FLU? Manager Market Research Required: Yes Accompanied by: OTHER Is patient in pain?: No Allergies Penicillins Allergy (Verified 06/17/18 18:05) Unknown Medications folic acid 800 mcg tablet 800 mcg PO QDAY 07/04/17 [History Confirmed 06/17/18] acetaminophen 325 mg tablet 325 mg PO Q6H PRN 03/04/18 [History Confirmed 06/17/18] vitamin#30 30 mg iron-10 mg iron-folic acid 1 mg- omg3 capsule cap PO cap 06/16/18 [History Confirmed 06/17/18] ondansetron HCl 4 mg tablet 4 mg PO TID-QID PRN #20 tab 06/17/18 [Rx Confirmed 06/17/18] PFSH Surgical History History of tonsillectomy (Acute) Family History Grandfather Diabetes Social History Smoking Status: Never smoker alcohol intake: current details: social substance use type: does not use caffeine: No what type of physical activity do you participate in: none frequency: 1-2 times per week seatbelt use: always do you feel safe at home: Yes 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 Details: JED COLON, is a 27 F who presents to the office today for concern for possible flu. Patient states that over the past 2 days she has had nausea, vomiting and diarrhea along with loss of appetite. She states she is concerned as she is 37 weeks and wants to make sure she does not have the flu. She reports that the vomiting has resolved today however she continues to have nausea and diarrhea. She tried to eat some saltine crackers earlier today which resulted in diarrhea. She has been able to drink small amounts of fluids however not able to drink normally. She also reports body aches and muscle stiffness. She has had no fever, chills, sweats. No shortness of breath, difficulty breathing or chest pain. ROS Const Constitutional: Positive for body ache; no chills, fever(s), fatigue or abnormal sleep pattern ENT ENT: No ear pain, nasal congestion, nasal discharge or sore throat Resp Respiratory: No shortness of breath, chest congestion, cough or wheezing Cardio Cardiology: No chest pain at rest, chest pain with exertion or shortness of breath Gastro GI: Positive for diarrhea, nausea/dyspepsia, vomiting and cramping; no Vomiting blood/hematemesis or Black,tarry stools Skin Skin: No wounds or lesions Neuro Neurology: No behavioral changes or confusion Psych Psychiatric: No abnormal sleep pattern, No behavioral changes, No confusion Endo Endocrine: No fatigue Aller/Imm Allergy/Immunologic: No wheezing Exam Const General: cooperative, healthy appearing [facility] Head: normocephalic, atraumatic Ears: hearing grossly normal bilaterally Face and sinus: face symmetric Eyes General: appearance normal, both eyes and all related structures Pupils: PERRL Resp Effort AND Inspection: normal respiratory effort Auscultation: Bilateral: Clear to Auscultation Cardio Rate: regular rate Rhythm: regular rhythm Heart Sounds: S1 normal, S2 normal GI Inspection: normal to inspection (37 weeks .) Auscultation: normal bowel sounds Percussion: normal to percussion Palpation: no guarding, nontender General: No CVA tenderness, bimanual renal exam normal bilaterally Skin General: no rashes or lesions noted Neuro General: alert, CN's II-XI intact bilaterally Psych Appearance: grossly normal Mental Status: mental status grossly normal Results [id number] Office Flu A AND B Negative FLU A AND B Last Edit by Essence Morales on 06/17/18 18:16 Assessment AND Plan Problems 1. Gastroenteritis K52.9 Status Acute Plan Negative flu in the office today. Zofran as prescribed today. Encouraged to get plenty of rest, drink lots of clear liquids for the next 24 hours and then advance her diet slowly. Patient also educated on other symptomatic management techniques. To be seen in 3-5 days by her PCP or BOTTLE PACKER if no improvement; sooner if worsening of symptoms. Patient advised of potential red flags and when appropriate to report to the ED. Patient verbalized understanding and agreement with all the above. Orders Orders: Medications New: Coding Level of Care Code Off vis,est,level 3 Diagnoses Gastroenteritis K52.9 06/17/18 9877 <Electronically signed by Wolf REID> Date Wolf REID Cosigner Signature: Date (if applicable) CC: BOTTLE PACKER OFFICE VISIT Observed: 06/16/2018 Status: F Source: PISECO REPORT 4:27 PM [facility] REPOSITORY [facility] [address] [place] [address] OFFICE VISIT Date of Service: 06/16/18 MR#: [id number] Acct: [id number] Name: JED COLON Rep #: [id number] : 1990 Provider: Yani Campoverde MD Age/Sex: 27/F Location: [facility] Status: Signed Intake Vital Signs06/16/18 Body Mass Index (BMI) 29.8 06/16/18 Height 5 ft 10 in 06/16/18 Weight: 214 lb 2 oz 06/16/18 Body Mass Index (BMI) 30.7 06/16/18 Blood Pressure 132/80 H Intake Visit Reasons: est ob 38 weeks Chief Complaint: est ob Manager Market Research Required: No Is patient in pain?: No Allergies Penicillins Allergy (Verified 06/16/18 15:56) Unknown Medications folic acid 800 mcg tablet 800 mcg PO QDAY 07/04/17 [History Confirmed 06/16/18] acetaminophen 325 mg tablet 325 mg PO Q6H PRN 03/04/18 [History Confirmed 06/16/18] vitamin#30 30 mg iron-10 mg iron-folic acid 1 mg- omg3 capsule cap PO cap 06/16/18 [History Confirmed 06/16/18] Last Menstral Period: 09/24/17 Zika: Zika virus screening: Negative : No PFSH PFSH Surgical History History of tonsillectomy (Acute) Family History Grandfather Diabetes Social History Smoking Status: Never smoker alcohol intake: current details: social substance use type: does not use caffeine: No what type of physical activity do you participate in: none frequency: 1-2 times per week seatbelt use: always do you feel safe at home: Yes 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 OB Visit NEPTALI Calculator Estimated Delivery Date 07/07/18 Based on Ultrasound Date 11/26/17 Current WG 37w 0d Number 1 Expected Delivery Route/Plan Specific Issue/Plans flu vaccine: yes minichart given: yes tdap vaccine: given rhogam: na LARC form signed: declined labor support person: Nicholas pain management: minimal intervention cut cord/dad catch: cut yes, maybe : yes PP control planned: condoms special requests: none Initial Weight: 195 lb Date Weight BP Urine PrFHR FuHt Pres MoCTX DilationFetal StVisit NoProviderComments E ot v te GA G Effac lucose ed Visit Notes Visit Date: 06/16/18 no vb lof good fm no regular ctx. 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 Now just feels weak and foggy. Karey Jacobson NP-Chantal on 05/01/18 Visit Date: 04/21/18 no vb lof good fm no regular ctx Yani Campoverde MD on 04/23/18 Visit Date: 04/07/18 no vb cramping lof good fm noregualr ctx Yani Campoverde MD on 04/07/18 Visit Date: 03/12/18 no vb cramping. discussed weight gain Yani Campoverde MD on 03/12/18 Visit Date: 03/04/18 No visit notes to display Visit Date: 02/12/18 no vb cramping us scheduled Yani Campoverde MD on 02/12/18 Visit Date: 01/16/18 Doing well. No longer with dizziness or nausea. No VB, LOF. RENATA Harris on 01/16/18 ACOG First Trimester First Trimester: Discussed Second Trimester Second Trimester: Signs and Symptoms of Labor, Selecting a care provider, Reproductive Life Planning, Care Planning, Depression/Anxiety and Intimate Partner Violence; discussed Tobacco Cessation Diagnostics Diagnostics Labs Hct 32.7 % (37-47) L 04/07/18 Hgb 10.8 g/dl (12.0-15.0) L 04/07/18 Glucose 1 Hr 50 gm 78 mg/dL (70-140) 04/07/18 Group B Strep DNA Cancelled 06/09/18 Details: HIV: Urine Culture: Sequential Screen: NIPT Screen: Results [id number] Office Urine Glucose Negative Last Edit by Minnie Rivera on 06/16/18 16:02 Office Urine Protein Negative Last Edit by Minnie Rivera on 06/16/18 16:02 Assessment AND Plan Problems 1. Urinary tract infection in mother during third trimester of O23.43 Repeat culture-neg 2. 37 weeks gestation of Z3A.37 genetic, carrier, NTD screening declined. normal anatomy scan. 3. Encounter for supervision of normal first in third trimester Z34.03 PRR NEPTALI 07/07/18 gender suprise Spouse Nicholas 4. GBS (group B Streptococcus carrier), +RV culture, currently O99.820 treat in labor Plan ACOG trimester education reviewed and updated. see problem list details for updated plan management information and see below for orders placed at this visit. [place] appropriate handout given. Orders Orders: Coding Level of Care Code OB Routine Diagnoses Urinary tract infection in mother during third trimester of O23.43 Trimester: third trimester 37 weeks gestation of Z3A.37 Weeks of gestation: 37 weeks Encounter for supervision of normal first in third trimester Z34.03 Trimester: third trimester GBS (group B Streptococcus carrier), +RV culture, currently O99.820 06/16/18 1627 <Electronically signed by Yani Campoverde MD> Date Yani Campoverde MD Cosigner Signature: Date (if applicable) CC: Observed: 06/09/2018 Status: F Source: [place]O CULTURE, GROUP B 7:00 PM [facility] STREPTOCOCCUS REPOSITORY ORAL Culture ORGANISM 1: Streptococcus agalactiae (B) Amount Growth Growth Streptococcus agalactiae (B): REACTION Ampicillin $ <=0.25 S Clindamycin $$ <=0.25 S Inducable Clindamycin Resistan - Linezolid $$$$ <=2 S Vancomycin $ 0.5 S (NF) indicates non-formulary drug at [facility]. Approval by Infectious Disease Specialist required before non-formulary drugs may be ordered and/or dispensed. * CLSI guidelines does not recommend testing of cephalosporins. This interpretation is deduced from Beta-lactam/penicillin results. Performed By: #### M100.1800 #### [facility] [address] [place], [address] BOTTLE PACKER OFFICE VISIT Observed: 06/09/2018 Status: F Source: PISECO REPORT 4:57 PM [facility] REPOSITORY [facility] [address] [place] [address] OFFICE VISIT Date of Service: 06/09/18 MR#: [id number] Acct: [id number] Name: JED COLON Alfonso Rep #: [id number] : 1990 Provider: Yani Campoverde MD Age/Sex: 27/F Location: [facility] Status: Signed Intake Vital Signs06/09/18 Body Mass Index (BMI) 29.8 06/09/18 Height 5 ft 10 in 06/09/18 Weight: 210 lb 6 oz 06/09/18 Body Mass Index (BMI) 30.2 06/09/18 Blood Pressure 124/82 H Intake Visit Reasons: est ob 37 weeks Manager Market Research Required: No Accompanied by: Is patient in pain?: No Allergies Penicillins Allergy (Verified 06/09/18 16:33) Unknown Medications folic acid 800 mcg tablet 800 mcg PO QDAY 07/04/17 [History Confirmed 06/09/18] multivitamin,bi-qwic-kbookgph tablet 1 tab PO QDAY 07/04/17 [History Confirmed 06/09/18] acetaminophen 325 mg tablet 325 mg PO Q6H PRN 03/04/18 [History Confirmed 06/09/18] Last Menstral Period: 09/24/17 Zika: Zika virus screening: Negative : No PFSH PFSH Surgical History History of tonsillectomy (Acute) Family History Grandfather Diabetes Social History Smoking Status: Never smoker alcohol intake: current details: social substance use type: does not use caffeine: No what type of physical activity do you participate in: none frequency: 1-2 times per week seatbelt use: always do you feel safe at home: Yes 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 OB Visit NEPTALI Calculator Estimated Delivery Date 07/07/18 Based on Ultrasound Date 11/26/17 Current WG 36w 0d Number 1 Expected Delivery Route/Plan Specific Issue/Plans flu vaccine: yes minichart given: yes tdap vaccine: given rhogam: na LARC form signed: declined labor support person: Nicholas pain management: minimal intervention cut cord/dad catch: cut yes, maybe : yes PP control planned: condoms special requests: none Initial Weight: 195 lb Date Weight BP Urine PrFHR FuHt Pres MoCTX DilationFetal StVisit NoProviderComments E ot v te GA G Effac lucose ed Visit Notes Visit Date: 06/09/18 no vb lof good fm n oregular ctx Yani Campoverde MD on 06/09/18 Visit Date: 06/02/18 no vb lof good fm no regular ctx Yani Campoverde MD on 06/02/18 Visit Date: 05/19/18 no vb lof good fm no regular ctx Yani Campoverde MD on 05/19/18 Visit Date: 05/05/18 no vb lof good fm n oregular ctx Yani Campvoerde MD on 05/05/18 Visit Date: 05/01/18 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 Now just feels weak and foggy. Karey Jacobson NP-C on 05/01/18 Visit Date: 04/21/18 no vb lof good fm no regular ctx Yani Campoverde MD on 04/23/18 Visit Date: 04/07/18 no vb cramping lof good fm noregualr ctx Yani Campoverde MD on 04/07/18 Visit Date: 03/12/18 no vb cramping. discussed weight gain Yani Campoverde MD on 03/12/18 Visit Date: 03/04/18 No visit notes to display Visit Date: 02/12/18 no vb cramping us scheduled Yani Campoverde MD on 02/12/18 Visit Date: 01/16/18 Doing well. No longer with dizziness or nausea. No VB, LOF. RENATA Harris on 01/16/18 ACOG First Trimester First Trimester: Discussed Second Trimester Second Trimester: Signs and Symptoms of Labor, Selecting a care provider, Reproductive Life Planning, Care Planning, Depression/Anxiety and Intimate Partner Violence; discussed Tobacco Cessation Diagnostics Diagnostics Labs Hct 32.7 % (37-47) L 04/07/18 Hgb 10.8 g/dl (12.0-15.0) L 04/07/18 Obstetrics Ultrasound 02/18/18 Glucose 1 Hr 50 gm 78 mg/dL (70-140) 04/07/18 Details: HIV: Urine Culture: Sequential Screen: NIPT Screen: Results [id number] Office Urine Glucose Negative Last Edit by Felicitas Wilson on 06/09/18 16:32 Office Urine Protein Negative Last Edit by Felicitas Wilson on 06/09/18 16:32 Assessment AND Plan Problems 1. Urinary tract infection in mother during third trimester of O23.43 Repeat culture-neg 2. 36 weeks gestation of Z3A.36 genetic, carrier, NTD screening declined. normal anatomy scan. 3. Encounter for supervision of normal first in third trimester Z34.03 PRR NEPTALI 07/07/18 gender suprise Spouse Nicholas Plan movement and labor precautions reviewed. ACOG trimester education reviewed and updated. see problem list details for updated plan management information and see below for orders placed at this visit. [place] appropriate handout given. Orders Orders: Coding Level of Care Code OB Routine Diagnoses Urinary tract infection in mother during third trimester of O23.43 Trimester: third trimester 36 weeks gestation of Z3A.36 Weeks of gestation: 36 weeks Encounter for supervision of normal first in third trimester Z34.03 Trimester: third trimester 06/09/18 1657 <Electronically signed by Yani Campoverde MD> Date Yani Campoverde MD Cosigner Signature: Date (if applicable) CC: BOTTLE PACKER OFFICE VISIT Observed: 06/02/2018 Status: F Source: EUGENIA REPORT 4:47 PM [facility] [address] [place] [address] OFFICE VISIT Date of Service: 06/02/18 MR#: [id number] Acct: [id number] Name: SYDNEEJED HRAT Alfonso Rep #: [id number] : 1990 Provider: Yani Campoverde MD Age/Sex: 27/F Location: [facility] Status: Signed Intake Vital Signs06/02/18 Body Mass Index (BMI) 29.8 06/02/18 Height 5 ft 10 in 06/02/18 Weight: 210 lb 06/02/18 Body Mass Index (BMI) 30.1 06/02/18 Blood Pressure 120/82 H Intake Visit Reasons: est ob 36 weeks Manager Market Research Required: No Accompanied by: Is patient in pain?: No Allergies Penicillins Allergy (Verified 06/02/18 16:09) Unknown Medications folic acid 800 mcg tablet 800 mcg PO QDAY 07/04/17 [History Confirmed 06/02/18] multivitamin,tb-kvig-divsbfsx tablet 1 tab PO QDAY 07/04/17 [History Confirmed 06/02/18] acetaminophen 325 mg tablet 325 mg PO Q6H PRN 03/04/18 [History Confirmed 06/02/18] Last Menstral Period: 09/24/17 Zika: Zika virus screening: Negative : No PFSH PFSH Surgical History History of tonsillectomy (Acute) Family History Grandfather Diabetes Social History Smoking Status: Never smoker alcohol intake: current details: social substance use type: does not use caffeine: No what type of physical activity do you participate in: none frequency: 1-2 times per week seatbelt use: always do you feel safe at home: Yes 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 OB Visit NEPTALI Calculator Estimated Delivery Date 07/07/18 Based on Ultrasound Date 11/26/17 Current WG 35w 0d Number 1 Expected Delivery Route/Plan Specific Issue/Plans flu vaccine: yes minichart given: yes tdap vaccine: given rhogam: na LARC form signed: declined labor support person: Nicholas pain management: minimal intervention cut cord/dad catch: cut yes, maybe : yes PP control planned: condoms special requests: none Initial Weight: 195 lb Date Weight BP Urine PrFHR FuHt Pres MoCTX DilationFetal StVisit NoProviderComments E ot v te GA G Effac lucose ed Visit Notes Visit Date: 06/02/18 no vb lof good fm no regular ctx Yani Campoverde MD on 06/02/18 Visit Date: 05/19/18 no vb lof good fm no regular ctx Yani Campoverde MD on 05/19/18 Visit Date: 05/05/18 no vb lof good fm n oregular ctx Yani Campoverde MD on 05/05/18 Visit Date: 05/01/18 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 Now just feels weak and foggy. Karey Jacobson NP-C on 05/01/18 Visit Date: 04/21/18 no vb lof good fm no regular ctx Yani Campoverde MD on 04/23/18 Visit Date: 04/07/18 no vb cramping lof good fm noregualr ctx Yani Campoverde MD on 04/07/18 Visit Date: 03/12/18 no vb cramping. discussed weight gain Yani Campoverde MD on 03/12/18 Visit Date: 03/04/18 No visit notes to display Visit Date: 02/12/18 no vb cramping us scheduled Yani Campoverde MD on 02/12/18 Visit Date: 01/16/18 Doing well. No longer with dizziness or nausea. No VB, LOF. RENATA Harris on 01/16/18 ACOG First Trimester First Trimester: Discussed Second Trimester Second Trimester: Signs and Symptoms of Labor, Selecting a care provider, Reproductive Life Planning, Care Planning, Depression/Anxiety and Intimate Partner Violence; discussed Tobacco Cessation Diagnostics Diagnostics Labs Hct 32.7 % (37-47) L 04/07/18 Hgb 10.8 g/dl (12.0-15.0) L 04/07/18 Obstetrics Ultrasound 02/18/18 Glucose 1 Hr 50 gm 78 mg/dL (70-140) 04/07/18 Details: HIV: Urine Culture: Sequential Screen: NIPT Screen: Results [id number] Office Urine Glucose Negative Last Edit by Felicitas Wilson on 06/02/18 16:06 Office Urine Protein Negative Last Edit by Felicitas Wilson on 06/02/18 16:06 [email or web address] Office Urine Glucose Negative Last Edit by Felicitas Wilson on 06/02/18 16:15 Office Urine Protein Negative Last Edit by Felicitas Wilson on 06/02/18 16:15 Assessment AND Plan Problems 1. Urinary tract infection in mother during third trimester of O23.43 Repeat culture-neg 2. 35 weeks gestation of Z3A.35 genetic, carrier, NTD screening declined. normal anatomy scan. 3. Encounter for supervision of normal first in third trimester Z34.03 PRR NEPTALI 07/07/18 gender suprise Spouse Nicholas Plan movement and labor precautions reviewed. ACOG trimester education reviewed and updated. see problem list details for updated plan management information and see below for orders placed at this visit. [place] appropriate handout given. Orders Orders: Coding Level of Care Code OB Routine Diagnoses Urinary tract infection in mother during third trimester of O23.43 Trimester: third trimester 35 weeks gestation of Z3A.35 Weeks of gestation: 35 weeks Encounter for supervision of normal first in third trimester Z34.03 Trimester: third trimester 06/02/18 1647 <Electronically signed by Yani Campoverde MD> Date Yani Campoverde MD Cosigner Signature: Date (if applicable) CC: BOTTLE PACKER OFFICE VISIT Observed: 05/19/2018 Status: F Source: [place] REPORT 5:36 PM [facility] [address] [place] [address] OFFICE VISIT Date of Service: 05/19/18 MR#: [id number] Acct: [id number] Name: JED COLON Rep #: [id number] : 1990 Provider: Yani Campoverde MD Age/Sex: 27/F Location: [facility] Status: Signed Intake Vital Signs05/19/18 Height 5 ft 10 in 05/19/18 Weight: 208 lb 2 oz 05/19/18 Body Mass Index (BMI) 29.8 05/19/18 Blood Pressure 122/80 H Intake Visit Reasons: est ob 34 weeks Chief Complaint: est ob Manager Market Research Required: No Is patient in pain?: No Allergies Penicillins Allergy (Verified 05/19/18 16:29) Unknown Medications folic acid 800 mcg tablet 800 mcg PO QDAY 07/04/17 [History Confirmed 05/19/18] multivitamin,zd-opux-jijifkjf tablet 1 tab PO QDAY 07/04/17 [History Confirmed 05/19/18] acetaminophen 325 mg tablet 325 mg PO Q6H PRN 03/04/18 [History Confirmed 05/19/18] Last Menstral Period: 09/24/17 Zika: Zika virus screening: Negative : No PFSH PFSH Surgical History History of tonsillectomy (Acute) Family History Grandfather Diabetes Social History Smoking Status: Never smoker alcohol intake: current details: social substance use type: does not use caffeine: No what type of physical activity do you participate in: none frequency: 1-2 times per week seatbelt use: always do you feel safe at home: Yes 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 OB Visit NEPTALI Calculator Estimated Delivery Date 07/07/18 Based on Ultrasound Date 11/26/17 Current WG 33w 0d Number 1 Expected Delivery Route/Plan Specific Issue/Plans flu vaccine: yes minichart given: yes tdap vaccine: given rhogam: na LARC form signed: declined labor support person: Nicholas pain management: minimal intervention cut cord/dad catch: cut yes, maybe : yes PP control planned: condoms special requests: none Initial Weight: 195 lb Date Weight BP Urine PrFHR FuHt Pres MoCTX DilationFetal StVisit NoProviderComments E ot v te GA G Effac lucose ed Visit Notes Visit Date: 05/19/18 no vb lof good fm no regular ctx Yani Campoverde MD on 05/19/18 Visit Date: 05/05/18 no vb lof good fm n oregular ctx Yani Campoverde MD on 05/05/18 Visit Date: 05/01/18 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 Now just feels weak and foggy. Karey Jacobson NP-Chantla on 05/01/18 Visit Date: 04/21/18 no vb lof good fm no regular ctx Yani Campoverde MD on 04/23/18 Visit Date: 04/07/18 no vb cramping lof good fm noregualr ctx Yani Campoverde MD on 04/07/18 Visit Date: 03/12/18 no vb cramping. discussed weight gain Yani Campoverde MD on 03/12/18 Visit Date: 03/04/18 No visit notes to display Visit Date: 02/12/18 no vb cramping us scheduled Yani Campoverde MD on 02/12/18 Visit Date: 01/16/18 Doing well. No longer with dizziness or nausea. No VB, LOF. Karey Jacobson NP-C on 01/16/18 ACOG First Trimester First Trimester: Discussed Second Trimester Second Trimester: Signs and Symptoms of Labor, Selecting a care provider, Reproductive Life Planning, Care Planning, Depression/Anxiety and Intimate Partner Violence; discussed Tobacco Cessation Diagnostics Diagnostics Labs Hct 32.7 % (37-47) L 04/07/18 Hgb 10.8 g/dl (12.0-15.0) L 04/07/18 Obstetrics Ultrasound 02/18/18 Glucose 1 Hr 50 gm 78 mg/dL (70-140) 04/07/18 Details: HIV: Urine Culture: Sequential Screen: NIPT Screen: Results [id number] Office Urine Glucose Negative Last Edit by Minnie Rivera on 05/19/18 16:33 Office Urine Protein Negative Last Edit by Minnie Rivera on 05/19/18 16:33 Assessment AND Plan Problems 1. Urinary tract infection in mother during first trimester of O23.41 Repeat culture-neg 2. 34 weeks gestation of Z3A.34 genetic, carrier, NTD screening declined. normal anatomy scan. 3. Encounter for supervision of normal first in third trimester Z34.03 PRR NEPTALI 07/07/18 gender suprise Spouse Nicholas Plan ACOG trimester education reviewed and updated. see problem list details for updated plan management information and see below for orders placed at this visit. [place] appropriate handout given. Orders Orders: Coding Level of Care Code OB Routine Diagnoses Urinary tract infection in mother during first trimester of O23.41 Trimester: first trimester 34 weeks gestation of Z3A.34 Weeks of gestation: 34 weeks Encounter for supervision of normal first in third trimester Z34.03 Trimester: third trimester 05/19/18 1736 <Electronically signed by Yani Campoverde MD> Date [facility]de [facility] Signature: Date (if applicable) CC: BOTTLE PACKER OFFICE VISIT Observed: 05/06/2018 Status: F Source: EUGENIA REPORT 10:57 AM [facility] [address] [place] [address] OFFICE VISIT Date of Service: 07/04/17 MR#: [id number] Acct: [id number] Name: JED COLON Rep #: [id number] : 1990 Provider: YVES Jacobson Age/Sex: 26/F Location: [facility] Status: Signed with Addenda ADDENDUM by YVES Jacobson on 05/06/18 at 1057 Addendum entered and electronically signed by RENATA Harris 05/06/18 10:57: Rectal exam was deferred. No masses palpated Assessment AND Plan 1. Encounter for gynecological examination without abnormal finding Z01.419; Z01.419 Plan - RENATA Harris Completed breast and pelvic exam Reviewed diet and exercise Pap collected Continue PNV. Reviewed optimal time for conception. Call with positive test No cats in home. 2. 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 annual Manager Market Research Required: No Is patient in pain?: No Allergies Penicillins Allergy (Verified 07/04/17 09:18) Unknown Medications folic acid 800 mcg tablet 800 mcg PO QDAY 07/04/17 [History Confirmed 07/04/17] multivitamin,wm-fpvm-usojdciv tablet 1 tab PO QDAY 07/04/17 [History Confirmed 07/04/17] Is last menstrual period known: Yes Last Menstral Period: 06/22/17 Post menopausal: No Patient : No : No Pregancy History 0 Elective abortions Hx Para Spontaneous abortions PFSH Surgical History History of tonsillectomy (Acute) Family History Grandfather Diabetes Social History Smoking Status: Never smoker alcohol intake: current details: social substance use type: does not use caffeine: Yes frequency: 1-2 times per week seatbelt use: always do you feel safe at home: Yes additional social history: 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 Last PAP: 2014 History of abnormal PAP: no Stopped OCP in March to attempt . Taking multivitamin with extra folic acid Female Reproductive History Last Menstral Period: 06/22/17 ROS Const Constitutional: Denies fatigue, weight gain or weight loss Cardio Card: Denies chest pain Resp Resp: Denies cough or shortness of breath with activity GI GI: Denies abdominal pain, constipation, change in stools, vomiting or bloating : Reports as per HPI; denies urinary frequency, pelvic pain, urinary urgency, vaginal discharge, vaginal itching, urinary incontinence or difficulty urinating Exam Const General: cooperative, healthy appearing, no acute distress, well developed Orientation: alert, oriented to person, oriented to place [facility] Head: normal to inspection Neck Neck: normal visual inspection Thyroid: thyroid normal Lymphatic: no lymphadenopathy noted Chest Breast inspection: normal inspection of the breasts, normal inspection of the axillae Breast palpation: normal palpation of the breasts, normal palpation of the axillae, no axillary lymphadenopathy Resp Effort AND Inspection: normal respiratory effort Auscultation: clear to auscultation bilaterally Cardio Rate: regular rate Rhythm: regular rhythm GI Palpation: soft, nontender, no masses Rectal Exam: mass, deferred External Female Exam: normal external appearance, normal appearance of the urethra Urethra: normal appearance of the urethra, normal palpation Speculum Exam - Vagina: normal appearance of the vagina, normal vaginal discharge Speculum Exam - Cervix: normal appearance of the cervix, other (Pap collected) Bimanual Exam- Vagina AND Uterus: normal bimanual exam, uterine size normal, uterine shape normal, uterus non-tender Bimanual Exam- Adnexa, other: normal adnexae, no adnexal masses, adnexae non-tender, pelvic support normal Pelvic Support: normal Neuro General: alert, oriented x3 Psych Affect: normal affect Assessment AND Plan 1. Encounter for gynecological examination without abnormal finding Z01.419; Z01.419 Plan Completed breast and pelvic exam Reviewed diet and exercise Pap collected Continue PNV. Reviewed optimal time for conception. Call with positive test No cats in home. 2. Pap smear for cervical cancer screening Z12.4 Plan thin prep pap with reflex HPV 07/04/17 1007 <Electronically signed by Karey YANEZ> Date Karey YANEZ Cosigner Signature: Date (if applicable) CC: BOTTLE PACKER OFFICE VISIT Observed: 05/05/2018 Status: F Source: EUGENIA REPORT 4:52 PM [facility] [address] [place] [address] OFFICE VISIT Date of Service: 05/05/18 MR#: [id number] Acct: [id number] Name: JED COLON Rep #: [id number] : 1990 Provider: Yani Campoverde MD Age/Sex: 27/F [place] [facility] Status: Signed Intake Vital Signs05/05/18 Height 5 ft 10 in 05/05/18 Weight: 204 lb 05/05/18 Body Mass Index (BMI) 29.2 05/05/18 Blood Pressure 110/80 Intake Visit Reasons: est ob 32 weeks Chief Complaint: est ob Manager Market Research Required: No Is patient in pain?: No Allergies Penicillins Allergy (Verified 05/05/18 16:23) Unknown Medications folic acid 800 mcg tablet 800 mcg PO QDAY 07/04/17 [History Confirmed 05/05/18] multivitamin,pf-ffpc-xyopshkh tablet 1 tab PO QDAY 07/04/17 [History Confirmed 05/05/18] acetaminophen 325 mg tablet 325 mg PO Q6H PRN 03/04/18 [History Confirmed 05/05/18] Last Menstral Period: 09/24/17 Zika: Zika virus screening: Negative : No PFSH PFSH Surgical History History of tonsillectomy (Acute) Family History Grandfather Diabetes Social History Smoking Status: Never smoker alcohol intake: current details: social substance use type: does not use caffeine: No what type of physical activity do you participate in: none frequency: 1-2 times per week seatbelt use: always do you feel safe at home: Yes 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 Urine not collected for 2 dip OB Visit NEPTALI Calculator Estimated Delivery Date 07/07/18 Based on Ultrasound Date 11/26/17 Current WG 31w 0d Number 1 Expected Delivery Route/Plan Specific Issue/Plans flu vaccine: yes minichart given: yes tdap vaccine: given rhogam: [] LARC form signed: [] labor support person: Nicholas pain management: [] cut cord/dad catch: [] : yes PP control planned: [] special requests: [] Initial Weight: 195 lb Date Weight BP Urine PFHR FuHt Pres MCTX DilatioFetal SVisit NProvideComment rot ov n t ote r s EGA Ef Gluco faced se 01/16/1186 lb 122/74 [id number] Doing w 8 (-9 lb) e ell. No 15 longer w 3d Negati with d ve izzines s or na usea. N o VB, L OF. 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 Now just feels weak and foggy. RENATA Harris on 05/01/18 Visit Date: 04/21/18 no vb lof good fm no regular ctx Yani Campoverde MD on 04/23/18 Visit Date: 04/07/18 no vb cramping lof good fm noregualr ctx Yani Campoverde MD on 04/07/18 Visit Date: 03/12/18 no vb cramping. discussed weight gain Yani Campoverde MD on 03/12/18 Visit Date: 03/04/18 No visit notes to display Visit Date: 02/12/18 no vb cramping us scheduled Yani Campoverde MD on 02/12/18 Visit Date: 01/16/18 Doing well. No longer with dizziness or nausea. No VB, LOF. RENATA Harris on 01/16/18 ACOG First Trimester First Trimester: Discussed Second Trimester Second Trimester: Signs and Symptoms of Labor, Selecting a care provider, Reproductive Life Planning (condoms), Care Planning, Depression/Anxiety and Intimate Partner Violence; discussed Tobacco Cessation Diagnostics Diagnostics Labs Hct 32.7 % (37-47) L 04/07/18 Hgb 10.8 g/dl (12.0-15.0) L 04/07/18 Obstetrics Ultrasound 02/18/18 Glucose 1 Hr 50 gm 78 mg/dL (70-140) 04/07/18 Details: HIV: Urine Culture: Sequential Screen: NIPT Screen: Assessment AND Plan Problems 1. Urinary tract infection in mother during first trimester of O23.41 Repeat culture-neg 2. 31 weeks gestation of Z3A.31 genetic, carrier, NTD screening declined. normal anatomy scan. 3. Encounter for supervision of normal first in third trimester Z34.03 PRR NEPTALI 07/07/18 gender suprise Spouse Nicholas Plan movement and labor precautions reviewed. ACOG trimester education reviewed and updated. see problem list details for updated plan management information and see below for orders placed at this visit. [place] appropriate handout given. Orders Orders: Coding Level of Care Code OB Routine Diagnoses Urinary tract infection in mother during first trimester of O23.41 Trimester: first trimester 31 weeks gestation of Z3A.31 Weeks of gestation: 31 weeks Encounter for supervision of normal first in third trimester Z34.03 Trimester: third trimester 05/05/18 1652 <Electronically signed by Ynai Campoverde MD> Date Yani Campoverde MD Cosign Signature: Date (if applicable) CC: BOTTLE PACKER OFFICE VISIT Observed: 05/01/2018 Status: F Source: EUGENIA REPORT 8:48 AM [facility] [address] [place] [address] OFFICE VISIT Date of Service: 05/01/18 MR#: [id number] Acct: [id number] Name: JED COLON Alfonso Rep #: [id number] : 1990 Provider: YVES Jacobson Age/Sex: 27/F Location: [facility] Status: Signed Intake Vital Signs05/01/18 Height 5 ft 10 in 05/01/18 Weight: 204 lb 05/01/18 Body Mass Index (BMI) 29.2 05/01/18 Blood Pressure 128/80 H 05/01/18 Temperature 96.8 F 05/01/18 Temperature Source Tympanic Intake Visit Reasons: OB not feeling well Manager Market Research Required: No Is patient in pain?: No Allergies Penicillins Allergy (Verified 05/01/18 08:26) Unknown Medications folic acid 800 mcg tablet 800 mcg PO QDAY 07/04/17 [History Confirmed 05/01/18] multivitamin,ua-pllo-iehqyjik tablet 1 tab PO QDAY 07/04/17 [History Confirmed 05/01/18] acetaminophen 325 mg tablet 325 mg PO Q6H PRN 03/04/18 [History Confirmed 05/01/18] Last Menstral Period: 09/24/17 Zika: Zika virus screening: Negative : No PFSH PFSH Surgical History History of tonsillectomy (Acute) Family History Grandfather Diabetes Social History Smoking Status: Never smoker alcohol intake: current details: social substance use type: does not use caffeine: No what type of physical activity do you participate in: none frequency: 1-2 times per week seatbelt use: always do you feel safe at home: Yes 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 Now just feels weak and foggy. RENATA Harris on 05/01/18 Visit Date: 04/21/18 no vb lof good fm no regular ctx Yani Campoverde MD on 04/23/18 Visit Date: 04/07/18 no vb cramping lof good fm noregualr ctx Yani Campoverde MD on 04/07/18 Visit Date: 03/12/18 no vb cramping. discussed weight gain Yani Campoverde MD on 03/12/18 Visit Date: 03/04/18 No visit notes to display Visit Date: 02/12/18 no vb cramping us scheduled Yani Campoverde MD on 02/12/18 Visit Date: 01/16/18 Doing well. No longer with dizziness or nausea. No VB, LOF. RENATA Harris on 01/16/18 ACOG First Trimester First Trimester: Discussed Diagnostics Diagnostics Labs Hct 32.7 % (37-47) L 04/07/18 Hgb 10.8 g/dl (12.0-15.0) L 04/07/18 Obstetrics Ultrasound 02/18/18 Glucose 1 Hr 50 gm 78 mg/dL (70-140) 04/07/18 Details: HIV: Urine Culture: Sequential Screen: NIPT Screen: Results [id number] Office Urine Glucose Negative Last Edit by Essence Gaytan on 05/01/18 08:28 Office Urine Protein Negative Last Edit by Essence Gaytan on 05/01/18 08:28 Assessment AND Plan Plan Reassured: No headache/afebrile. Good FM and normal FHT. Otherwise stable Home, force fluids and rest. RTO prn, normal OB visit Orders Orders: Coding Level of Care Code OB Routine 05/01/18 0848 <Electronically signed by Karey YANEZ> Date Karey YANEZ Cosigner Signature: Date (if applicable) CC: BOTTLE PACKER OFFICE VISIT Observed: 04/23/2018 Status: F Source: [place] REPORT 6:45 AM [facility] [address] [place] [address] OFFICE VISIT Date of Service: 04/21/18 MR#: [id number] Acct: [id number] Name: JED COLON Rep #: [id number] : 1990 Provider: Yani Campoverde MD Age/Sex: 27/F Location: [facility] Status: Signed Intake Vital Signs04/21/18 Blood Pressure 120/78 04/21/18 Height 5 ft 10 in 04/21/18 Weight: 204 lb 04/21/18 Body Mass Index (BMI) 29.2 04/21/18 Blood Pressure 142/78 H Intake Visit Reasons: est ob 30 weeks Chief Complaint: est ob Manager Market Research Required: No Is patient in pain?: No Allergies Penicillins Allergy (Verified 04/21/18 16:23) Unknown Medications folic acid 800 mcg tablet 800 mcg PO QDAY 07/04/17 [History Confirmed 04/07/18] multivitamin,nk-frcc-uwpxhqlc tablet 1 tab PO QDAY 07/04/17 [History Confirmed 04/21/18] acetaminophen 325 mg tablet 325 mg PO Q6H PRN 03/04/18 [History Confirmed 04/21/18] Last Menstral Period: 09/24/17 Zika: Zika virus screening: Negative : No PFSH PFSH Surgical History History of tonsillectomy (Acute) Family History Grandfather Diabetes Social History Smoking Status: Never smoker alcohol intake: current details: social substance use type: does not use caffeine: No what type of physical activity do you participate in: none frequency: 1-2 times per week seatbelt use: always do you feel safe at home: Yes additional social history: 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 OB Visit NEPTALI Calculator Estimated Delivery Date 07/07/18 Based on Ultrasound Date 11/26/17 Current WG 29w 2d Number 1 Expected Delivery Route/Plan Specific Issue/Plans flu vaccine: yes minichart given: yes tdap vaccine: given rhogam: [] LARC form signed: [] labor support person: Nicholas pain management: [] cut cord/dad catch: [] : yes PP control planned: [] special requests: [] Initial Weight: 195 lb Date Weight BP Urine PrFHR FuHt Pres MoCTX DilationFetal StVisit NoProviderComments E ot v te GA G Effac lucose ed Visit Notes Visit Date: 04/21/18 no vb lof good fm no regular ctx Yani Campoverde MD on 04/23/18 Visit Date: 04/07/18 no vb cramping lof good fm noregualr ctx Yani Campoverde MD on 04/07/18 Visit Date: 03/12/18 no vb cramping. discussed weight gain Yani Campoverde MD on 03/12/18 Visit Date: 03/04/18 No visit notes to display Visit Date: 02/12/18 no vb cramping us scheduled Yani Campoverde MD on 02/12/18 Visit Date: 01/16/18 Doing well. No longer with dizziness or nausea. No VB, LOF. Karey Jacobson NP-Chantal on 01/16/18 ACOG First Trimester First Trimester: Discussed Diagnostics Diagnostics Labs Hct 32.7 % (37-47) L 04/07/18 Hgb 10.8 g/dl (12.0-15.0) L 04/07/18 Obstetrics Ultrasound 02/18/18 Chlam trachomat DNA PCR Negative (Negative) 11/19/17 N.gonorrhoeae DNA (PCR) Negative (Negative) 11/19/17 Glucose 1 Hr 50 gm 78 mg/dL (70-140) 04/07/18 Details: HIV: Urine Culture: Sequential Screen: NIPT Screen: Results [id number] Office Urine Glucose Negative Last Edit by Minnie Rivera on 04/21/18 16:30 Office Urine Protein Negative Last Edit by Minnie Rivera on 04/21/18 16:30 Assessment AND Plan Problems 1. Urinary tract infection in mother during first trimester of O23.41 Repeat culture-neg 2. 29 weeks gestation of Z3A.29 genetic, carrier, NTD screening declined. normal anatomy scan. 3. Encounter for supervision of normal first in third trimester Z34.03 PRR NEPTALI 07/07/18 gender suprise Spouse Nicholas Plan movement and labor precautions reviewed. ACOG trimester education reviewed and updated. see problem list details for updated plan management information and see below for orders placed at this visit. [place] appropriate handout given. Orders Orders: Coding Level of Care Code OB Routine Diagnoses Urinary tract infection in mother during first trimester of O23.41 Trimester: first trimester 29 weeks gestation of Z3A.29 Weeks of gestation: 29 weeks Encounter for supervision of normal first in third trimester Z34.03 Trimester: third trimester 04/23/18 0645 <Electronically signed by Yani Campoverde MD> Date [facility]: Date (if applicable) CC: BOTTLE PACKER OFFICE VISIT Observed: 04/09/2018 Status: F Source: [place] REPORT 3:23 AM [facility] [address] [place] [address] OFFICE VISIT Date of Service: 03/04/18 MR#: [id number] Acct: [id number] Name: JED COLON Alfonso Rep #: [id number] : 1990 Provider: Yani Campoverde MD Age/Sex: 27/F Location: [facility] Status: Signed Intake Vital Signs03/04/18 Height 5 ft 10 in 03/04/18 Weight: 192 lb 6 oz 03/04/18 Body Mass Index (BMI) 27.6 03/04/18 Blood Pressure 132/83 H Intake Visit Reasons: UTI? Manager Market Research Required: No Is patient in pain?: No Allergies Penicillins Allergy (Verified 04/07/18 16:27) Unknown Medications folic acid 800 mcg tablet 800 mcg PO QDAY 07/04/17 [History Confirmed 04/07/18] multivitamin,hj-nsvy-aeltlhsw tablet 1 tab PO QDAY 07/04/17 [History Confirmed 04/07/18] acetaminophen 325 mg tablet 325 mg PO Q6H PRN 03/04/18 [History Confirmed 04/07/18] Last Menstral Period: 09/24/17 Zika: Zika virus screening: Negative : No PFSH PFSH Surgical History History of tonsillectomy (Acute) Family History Grandfather Diabetes Social History Smoking Status: Never smoker alcohol intake: current details: social substance use type: does not use caffeine: No what type of physical activity do you participate in: none frequency: 1-2 times per week seatbelt use: always do you feel safe at home: Yes 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 OB Visit NEPTALI Calculator Estimated Delivery Date 07/07/18 Based on Ultrasound Date 11/26/17 Current WG 27w 2d Number 1 Expected Delivery Route/Plan Specific Issue/Plans flu vaccine: yes minichart given: yes tdap vaccine: given rhogam: [] LARC form signed: [] labor support person: Nicholas pain management: [] cut cord/dad catch: [] : yes PP control planned: [] special requests: [] Initial Weight: 195 lb Date Weight BP Urine PrFHR FuHt Pres MoCTX DilationFetal StVisit NoProviderComments E ot v te GA G Effac lucose ed Visit Notes Visit Date: 04/07/18 no vb cramping lof good fm noregualr ctx Yani Campoverde MD on 04/07/18 Visit Date: 03/12/18 no vb cramping. discussed weight gain Yani Campoverde MD on 03/12/18 Visit Date: 03/04/18 No visit notes to display Visit Date: 02/12/18 no vb cramping us scheduled Yani Campoverde MD on 02/12/18 Visit Date: 01/16/18 Doing well. No longer with dizziness or nausea. No VB, LOF. RENATA Harris on 01/16/18 ACOG First Trimester First Trimester: Discussed Diagnostics Diagnostics Labs Blood Type O POSITIVE 11/19/17 Antibody Screen NEGATIVE 11/19/17 Hct 32.7 % (37-47) L 04/07/18 Hgb 10.8 g/dl (12.0-15.0) L 04/07/18 Obstetrics Ultrasound 02/18/18 Rubella IgG Antibody 130.5 IU/mL 11/19/17 RPR NONREACTIVE (NONREACTIVE) 11/19/17 Hep Bs Antigen Negative (Negative) 11/19/17 Chlam trachomat DNA PCR Negative (Negative) 11/19/17 N.gonorrhoeae DNA (PCR) Negative (Negative) 11/19/17 Glucose 1 Hr 50 gm 78 mg/dL (70-140) 04/07/18 Details: HIV: Urine Culture: Sequential Screen: NIPT Screen: Results [email or web address] Office Urine Color Colorless Last Edit by Meaghan Moore on 03/04/18 13:14 Office Urine Clarity Clear Last Edit by Meaghan Moore on 03/04/18 13:14 Leuk- Small Assessment AND Plan Problems 1. Urinary tract infection in mother during first trimester of O23.41 Repeat culture-neg 2. 19 weeks gestation of Z3A.19 genetic, carrier, NTD screening declined. normal anatomy scan. 3. Encounter for supervision of normal first in second trimester Z34.02 PRR NEPTALI 07/07/18 gender suprise Spouse Nicholas Plan ACOG trimester education reviewed and updated. see problem list details for updated plan management information and see below for orders placed at this visit. [place] appropriate handout given. Orders Orders: Coding Level of Care Code OB Routine Diagnoses Urinary tract infection in mother during first trimester of O23.41 Trimester: first trimester 19 weeks gestation of Z3A.19 Weeks of gestation: 19 weeks Encounter for supervision of normal first in second trimester Z34.02 Trimester: second trimester 04/09/18 0323 <Electronically signed by Yani Campoverde MD> Date Yani Campoverde MD Cosigner Signature: Date (if applicable) CC: CBC W/DIFF, AUTOMATED Collected: 04/07/2018 Status: F Source: [place] 5:54 PM [facility] REPOSITORY TYPE CODE TESTS RESULT OUT OF RANGE REFERENCE UNITS LAB L100.1000 4.4-11.0 K/mm3 High WBC 11.2 LAB L100.1200 4.2-5.4 M/mm3 Low RBC 3.63 LAB L100.1300 12.0-15.0 g/dl Low HGB 10.8 LAB L100.1400 37-47 % Low HCT 32.7 LAB L100.1500 81-99 fL Normal MCV 90.1 LAB L100.1600 27.0-32.0 pg Normal MCH 29.8 LAB L100.1700 32-36 g/gl Normal MCHC 33.0 LAB L100.1810 11.6-14.6 % Normal RDW CV 13.7 LAB L100.1820 35.1-43.9 fl High RDW SD 44.8 LAB L100.1900 150-450 K/mm3 Normal PLT 228 LAB L100.2000 6.2-12.0 fl Normal MPV 9.3 LAB L100.2100 47-70 % Normal NEUT% 66.8 LAB L100.2200 19-41 % Normal LY% 22.9 LAB L100.2300 0-10 % Normal MONO% 8.8 LAB L100.2400 0-5 % Normal EO% 0.9 LAB L100.2500 0-1 % Normal BASO% 0.2 LAB L100.2550 0.0-0.9 % Normal IM GRAN % 0.400 Result Comment: IG% - Immature Granulocytes (promyelocytes, myelocytes and metamyelocytes) > 1% indicates that a LEFT SHIFT is Present. LAB L100.2620 2.0-7.7 X10 3/uL Normal Absolute Neut 7.5 LAB L100.2720 0.83-4.51 X10 3/ul Normal Absolute Lymph 2.57 Performed By: #### L100.0100, L501.0250 #### [facility] [address] [place], [address] GLUCOSE CHALLENGE GEST Collected: 04/07/2018 Status: F Source: [place] 1H 50G 5:54 PM [facility] REPOSITORY TYPE CODE TESTS RESULT OUT OF RANGE REFERENCE UNITS LAB L501.0250 70-140 mg/dL Normal GLU GEST 78 50g 1H Performed By: #### L100.0100, L501.0250 #### [facility] [address] [place], [address] BOTTLE PACKER OFFICE VISIT Observed: 04/07/2018 Status: F Source: [place] REPORT 4:59 PM [facility] REPOSITORY [facility] [address] [place] [address] OFFICE VISIT Date of Service: 04/07/18 MR#: [id number] Acct: [id number] Name: JED COLON Alfonso Rep #: [id number] : 1990 Provider: Yani Campoverde MD Age/Sex: 27/F Location: [facility] Status: Signed Intake Vital Signs04/07/18 Height 5 ft 10 in 04/07/18 Weight: 203 lb 4 oz 04/07/18 Body Mass Index (BMI) 29.1 04/07/18 Blood Pressure 132/70 H Intake Visit Reasons: est ob 28 weeks Chief Complaint: est ob Manager Market Research Required: No Is patient in pain?: No Allergies Penicillins Allergy (Verified 04/07/18 16:27) Unknown Medications folic acid 800 mcg tablet 800 mcg PO QDAY 07/04/17 [History Confirmed 04/07/18] multivitamin,ls-ewly-vgtwuykj tablet 1 tab PO QDAY 07/04/17 [History Confirmed 04/07/18] acetaminophen 325 mg tablet 325 mg PO Q6H PRN 03/04/18 [History Confirmed 04/07/18] Last Menstral Period: 09/24/17 Zika: Zika virus screening: Negative : No PFSH PFSH Surgical History History of tonsillectomy (Acute) Family History Grandfather Diabetes Social History Smoking Status: Never smoker alcohol intake: current details: social substance use type: does not use caffeine: No what type of physical activity do you participate in: none frequency: 1-2 times per week seatbelt use: always do you feel safe at home: Yes 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 OB Visit NEPTALI Calculator Estimated Delivery Date 07/07/18 Based on Ultrasound Date 11/26/17 Current WG 27w 0d Number 1 Expected Delivery Route/Plan Specific Issue/Plans flu vaccine: yes minichart given: yes tdap vaccine: given rhogam: [] LARC form signed: [] labor support person: Nicholas pain management: [] cut cord/dad catch: [] : yes PP control planned: [] special requests: [] Initial Weight: 195 lb Date Weight BP Urine PrFHR FuHt Pres MoCTX DilationFetal StVisit NoProviderComments E ot v te [place] G Effac lucose ed Visit Notes Visit Date: 04/07/18 no vb cramping lof good fm noregualr ctx Yani Campoverde MD on 04/07/18 Visit Date: 03/12/18 no vb cramping. discussed weight gain Yani Campoverde MD on 03/12/18 Visit Date: 02/12/18 no vb cramping us scheduled Yani Campoverde MD on 02/12/18 Visit Date: 01/16/18 Doing well. No longer with dizziness or nausea. No VB, LOF. RENATA Harris on 01/16/18 ACOG First Trimester First Trimester: Discussed Diagnostics Diagnostics Labs Blood Type O POSITIVE 11/19/17 Antibody Screen NEGATIVE 11/19/17 Hct 34.3 % (37-47) L 03/07/18 Hgb 11.3 g/dl (12.0-15.0) L 03/07/18 Obstetrics Ultrasound 02/18/18 Rubella IgG Antibody 130.5 IU/mL 11/19/17 RPR NONREACTIVE (NONREACTIVE) 11/19/17 Hep Bs Antigen Negative (Negative) 11/19/17 Chlam trachomat DNA PCR Negative (Negative) 11/19/17 N.gonorrhoeae DNA (PCR) Negative (Negative) 11/19/17 Details: HIV: Urine Culture: Sequential Screen: NIPT Screen: Assessment AND Plan Problems 1. Urinary tract infection in mother during first trimester of O23.41 Repeat culture-neg 2. 19 weeks gestation of Z3A.19 genetic, carrier, NTD screening declined. normal anatomy scan. 3. Encounter for supervision of normal first in second trimester Z34.02 PRR NEPTALI 07/07/18 gender suprise Spouse Nicholas Plan ACOG trimester education reviewed and updated. see problem list details for updated plan management information and see below for orders placed at this visit. [place] appropriate handout given. Orders Orders: Coding Level of Care Code OB Routine Diagnoses Urinary tract infection in mother during first trimester of O23.41 Trimester: first trimester 19 weeks gestation of Z3A.19 Weeks of gestation: 19 weeks Encounter for supervision of normal first in second trimester Z34.02 Trimester: second trimester 04/07/18 1659 <Electronically signed by Yani Campoverde MD> Date Yani Campoverde MD Cosigner Signature: Date (if applicable) CC: Observed: 03/12/2018 Status: F Source: [place] CULTURE, URINE 2:57 PM [facility] REPOSITORY Urine Culture Culture exhibits no growth. Performed By: #### M100.0650 #### [place] [facility] [address] [place], [address] BOTTLE PACKER OFFICE VISIT Observed: 03/12/2018 Status: F Source: [place] REPORT 10:02 AM [facility] REPOSITORY [facility] [address] [place] [address] OFFICE VISIT Date of Service: 03/12/18 MR#: [id number] Acct: [id number] Name: JED COLON Rep #: [id number] : 1990 Provider: Yani Campoverde MD Age/Sex: 27/F [place] [facility] [place] Status: Signed Intake Vital Signs03/12/18 Height 5 ft 10 in 03/12/18 Weight: 196 lb 6 oz 03/12/18 Body Mass Index (BMI) 28.1 03/12/18 Blood Pressure 118/70 Intake Visit Reasons: EST OB 23 WEEKS Chief Complaint: est ob Manager Market Research Required: No Is patient in pain?: No Allergies Penicillins Allergy (Verified 03/12/18 09:33) Unknown Medications folic acid 800 mcg tablet 800 mcg PO QDAY 07/04/17 [History Confirmed 03/12/18] multivitamin,to-vwqe-qytpbozg tablet 1 tab PO QDAY 07/04/17 [History Confirmed 03/12/18] acetaminophen 325 mg tablet 325 mg PO Q6H PRN 03/04/18 [History Confirmed 03/12/18] Last Menstral Period: 09/24/17 Zika: Zika virus screening: Negative : No PFSH PFSH Surgical History History of tonsillectomy (Acute) Family History Grandfather Diabetes Social History Smoking Status: Never smoker alcohol intake: current details: social substance use type: does not use caffeine: No what type of physical activity do you participate in: none frequency: 1-2 times per week seatbelt use: always do you feel safe at home: Yes 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 OB Visit NEPTALI Calculator Estimated Delivery Date 07/07/18 Based on Ultrasound Date 11/26/17 Current WG 23w 2d Number 1 Expected Delivery Route/Plan Specific Issue/Plans flu vaccine: yes minichart given: yes tdap vaccine: [] rhogam: [] LARC form signed: [] labor support person: Nicholas pain management: [] cut cord/dad catch: [] : yes PP control planned: [] special requests: [] Initial Weight: 195 lb Date Weight BP Urine PrFHR FuHt Pres MoCTX DilationFetal StVisit NoProviderComments E ot v te [place] G Effac lucose ed Visit Notes Visit Date: 03/12/18 no vb cramping. discussed weight gain Yani Campoverde MD on 03/12/18 Visit Date: 02/12/18 no vb cramping us scheduled Yani Campoverde MD on 02/12/18 Visit Date: 01/16/18 Doing well. No longer with dizziness or nausea. No VB, LOF. Karey Jacobson NP-Chantal on 01/16/18 ACOG First Trimester First Trimester: Discussed Diagnostics Diagnostics Labs Blood Type O POSITIVE 11/19/17 Antibody Screen NEGATIVE 11/19/17 Hct 34.3 % (37-47) L 03/07/18 Hgb 11.3 g/dl (12.0-15.0) L 03/07/18 Obstetrics Ultrasound 02/18/18 Rubella IgG Antibody 130.5 IU/mL 11/19/17 RPR NONREACTIVE (NONREACTIVE) 11/19/17 Hep Bs Antigen Negative (Negative) 11/19/17 Chlam trachomat DNA PCR Negative (Negative) 11/19/17 N.gonorrhoeae DNA (PCR) Negative (Negative) 11/19/17 Miscellaneous Test 07/04/17 Details: HIV: Urine Culture: Sequential Screen: NIPT Screen: Assessment AND Plan Problems 1. Urinary tract infection in mother during first trimester of O23.41 Repeat culture- 2. Encounter for supervision of normal first in second trimester Z34.02 PRR NEPTALI 07/07/18 gender suprise Spouse Nicholas 3. 19 weeks gestation of Z3A.19 genetic, carrier, NTD screening declined. normal anatomy scan. Plan ACOG trimester education reviewed and updated. see problem list details for updated plan management information and see below for orders placed at this visit. [place] appropriate handout given. Orders Orders: Coding Level of Care Code OB Routine Diagnoses Urinary tract infection in mother during first trimester of O23.41 Trimester: first trimester Encounter for supervision of normal first in second trimester Z34.02 Trimester: second trimester 19 weeks gestation of Z3A.19 Weeks of gestation: 19 weeks 03/12/18 1002 <Electronically signed by Yani Campoverde MD> Date Yani Campoverde MD Cosigner Signature: Date (if applicable) CC: CBC, EMPLOYEE Collected: 03/07/2018 Status: F Source: [place] 8:25 AM [facility] REPOSITORY TYPE CODE TESTS RESULT OUT OF RANGE REFERENCE UNITS LAB L100.1000 4.4-11.0 K/mm3 Normal WBC 10.1 LAB L100.1200 4.2-5.4 M/mm3 Low RBC 3.80 LAB L100.1300 12.0-15.0 g/dl Low HGB 11.3 LAB L100.1400 37-47 % Low HCT 34.3 LAB L100.1500 81-99 fL Normal MCV 90.3 LAB L100.1600 27.0-32.0 pg Normal MCH 29.7 LAB L100.1700 32-36 g/gl Normal MCHC 32.9 LAB L100.1810 11.6-14.6 % Normal RDW CV 13.8 LAB L100.1820 35.1-43.9 fl High RDW SD 45.2 LAB L100.1900 150-450 K/mm3 Normal PLT 238 LAB L100.2000 6.2-12.0 fl Normal MPV 9.5 LAB L100.2110 47-70 % High NEUT% 71.3 LAB L100.2210 19-41 % Normal LY% 20.2 LAB L100.2310 0-10 % Normal MONO% 7.0 LAB L100.2410 0-5 % Normal EO% 1.0 LAB L100.2510 0-1 % Normal BASO% 0.3 LAB L100.2620 2.0-7.7 X10 3/uL Normal Absolute Neut 7.2 LAB L100.2720 0.83-4.51 X10 3/ul Normal Absolute Lymph 2.04 Performed By: #### L100.0200 #### [facility] Laboratory [address] [place], [address] URINALYSIS, EMPLOYEE Collected: 03/07/2018 Status: F Source: [place] 8:25 AM [facility] REPOSITORY TYPE CODE TESTS RESULT OUT OF RANGE REFERENCE UNITS LAB L400.3000 Yellow COLOR Normal Yellow LAB L400.3050 Clear Normal CLARITY Sl. Cloudy LAB L400.3200 Normal mg/dl Normal GLUCOSE, UR Normal LAB L400.3300 Negative mg/dL Normal BILIRUBIN URINE Negative LAB L400.3400 Negative mg/dl Normal KETONE UR Negative LAB L400.3465 1.002-1.030 Normal SP.GR. DIPSTX 1.015 LAB L400.3550 5.0 - 8.0 pH UR Normal 8.0 LAB L400.3600 Negative mg/dl PROT Normal DIPSTX Negative LAB L400.3700 Normal mg/dl Normal UROBILI Normal LAB L400.3750 Negative Normal NITRITE UR Negative LAB L400.3780 Negative /ul Normal OCCULT BLOOD-UR Negative LAB L400.3800 Negative /ul LEUK Normal ESTERASE Negative Performed By: #### L400.0100 #### [facility] [address] [place], [place], [address] NICOTINE URINE DRUG Collected: 03/07/2018 Status: F Source: [place] [facility] 8:25 AM [facility] REPOSITORY TYPE CODE TESTS RESULT OUT OF RANGE REFERENCE UNITS LAB L505.6250 TO BE Normal CONFIRMED Result Comment: CONFIRMATORY TESTING FOR ALL POSITIVE URINE DRUG SCREEN RESULTS WILL ONLY BE SENT OUT UPON PHYSICIAN ORDER. The results of Urine Drug Screen methods provide only preliminary analytical test results. A more specific alternate chemical method must be used in order to obtain a confirmed analytical result. Gas chromatography/mass spectrometery (GC/MS) is the preferred confirmatory method. Clinical consideration and professional judgement should be applied to any drug of abuse test result, particularly when preliminary positive results are used. LAB L505.6270 <200 ng/mL Normal COT DRG Negative SCREEN Result Comment: Cotinine is the first-stage metabolite of Nicotine. Performed By: #### L505.6240 #### [facility] Laboratory [address] [place], [address] EMPLOYEE PROFILE Collected: 03/07/2018 Status: F Source: [place] 8:25 AM [facility] REPOSITORY TYPE CODE TESTS RESULT OUT OF RANGE REFERENCE UNITS LAB L501.0100 74-106 mg/dL Low GLU 73 Result Comment: Please note revised GLUCOSE reference range effective 2017. LAB L501.1000 7-18 mg/dL Normal BUN 8 LAB L501.1100 0.55-1.02 mg/dL Normal CREAT,SERUM 0.55 Result Comment: The validity of the calculated GFR AND GFRAA in patients over 70 years has not been determined. Clinical correlation is essential. LAB L501.1110 >60 mL/min Normal EST GFR 141 Result Comment: Non- GFR Calc LAB L501.1115 >60 mL/min Normal EST GFR - AA 170 Result Comment: GFR Calc LAB L501.1300 10-20 RATIO Normal BUN/CRE 14.7 LAB L501.1400 2.6-6.0 mg/dL Normal URIC 3.7 Result Comment: The drugs N-Acetylcysteine and Metamizole may falsely depress this assay. LAB L501.1500 6.4-8.2 g/dL Normal T PROT 7.0 LAB L501.1800 3.2-5.0 g/dL Low ALB 3.0 LAB L501.1950 2.2-4.2 g/dL Normal GLOB 4.0 LAB L501.2000 0.9-2.4 RATIO Low A/G 0.8 LAB L501.2200 8.5-10.1 mg/dL Normal CA 8.6 LAB L501.2300 2.5-4.9 mg/dL Normal PHOS 3.1 LAB L501.4100 15-37 U/L Normal AST 21 LAB L501.4305 45-117 U/L Normal ALK P 95 LAB L501.4405 13-56 U/L Normal ALT 28 LAB L501.4600 0.20-1.00 mg/dL Normal T BILI 0.30 LAB L501.4700 0.00-0.30 mg/dL Normal D BILI 0.07 LAB L501.4900 200 mg/dL High CHOL 268 Result Comment: <200 mg/dL Desirable 200-240 mg/dL Borderline >240 mg/dL High Risk LAB L501.5000 mg/dL Normal TRIG 160 Result Comment: The drugs N-Acetylcysteine and Metamizole may falsely depress this assay. Serum Triglycerides Reference Interval Normal <150 mg/dL Borderline high 150 - 199 mg/dL High 200 - 499 mg/dL Very High > or = 500 mg/dL LAB L501.5300 136-145 mmol/L Normal NA 138 LAB L501.5600 3.5-5.1 mmol/L Normal K 4.3 LAB L501.5900 98-107 mmol/L Normal CL 105 LAB L501.6100 21.0-32.0 mmol/L Normal CO2 25.0 LAB L501.6200 5-15 Normal 8 GAP LAB L501.6400 mg/dL Normal HDL 93 Result Comment: The drugs N-Acetylcysteine and Metamizole may falsely depress this assay. Reference Range HDL <40 mg/dL Low HDL Cholesterol HDL >or= 60 mg/dL High HDL Cholesterol LAB L501.6475 Normal CHOL:HDL 2.90 LAB L501.6500 0-130 mg/dL High LDL 143 LAB L501.6600 5-40 mg/dL Normal VLDL 32 LAB L504.2610 84-246 U/L Normal LDH 201 Performed By: #### L500.2900 #### [facility] Laboratory [address] [place], [address] Observed: 03/04/2018 Status: F Source: [place] CULTURE, URINE 5:27 PM [facility] REPOSITORY Urine Culture Culture exhibits no growth. Performed By: #### M100.0650 #### [facility] Laboratory [address] [place], [address] OB ANATOMY SCAN Observed: 02/18/2018 Status: F Source: [place] 12:22 PM [facility] REPOSITORY [facility] Imaging Services [address] [place] [address] OB Anatomy Scan MR#: [id number] Acct: [id number] Name: JED COLON Rep #: [id number] : 1990 F 27 From: Logan Arnold MD PCP: Jennie Grover MD Status: REG CLI Study: OB Anatomy Scan Date of Exam: 02/18/18 Exam# [id number] Ordering Dr: Karey Jacobson YARD WORKER-C STUDY: SECOND AND THIRD TRIMESTER OBSTETRICAL ULTRASOUND REASON FOR EXAM: Female, 27 years old. Routine survey. LMP: September 30, 2017. TECHNIQUE: Transabdominal PRIOR ULTRASOUND: Comparison is made with prior study dated November 26, 2017. FINDINGS: There is a single intrauterine fetus. The fetus is in a cephalic presentation. There is demonstrated cardiac activity with a heart rate of 146 bpm. There is a normal amniotic fluid volume. The largest amniotic fluid pocket measures 4.5 cm x 3.3 cm. The amniotic fluid index (CUCA) is within normal limits. The placenta is anterior in location and is not low lying. There are Grade 0 placental changes. The cervix measures 3.5 cm in length. The bilateral adnexal regions are normal. BIOMETRY: BPD: 4.54 cm: 19 weeks, 6 days HC: 17.65 cm: 20 weeks, 1 days AC: 15.67 cm: 20 weeks, 6 days FL: 3.18 cm: 20 weeks, 0 days CI: 73% FL/BPD: 70% FL/HC: FL/AC: 20% HC/AC: 1.13 age by current US: 20 weeks, 2 days. NEPTALI by current US: July 06, 2018. Estimated weight: 348 grams, +/- 51 grams, 57 %. Age by LMP: 20 weeks, 1 days. NEPTALI by LMP: Denis 2018. ANATOMY: Gender: Indeterminant Cranium: Normal lateral ventricles. Normal choroid plexus. Normal cerebellum. Normal cisterna magna. Normal face, nose and lips. Chest: Normal 4-chamber heart. Abdomen/Pelvis: Normal diaphragm. Normal stomach. Normal abdominal wall. Normal cord insertion. Normal 3 vessel cord. Normal kidneys. Normal bladder. Spine: Normal cervical spine. Normal thoracic spine. Normal lumbar spine. Normal sacrum. Extremities: Normal bilateral upper extremities. Normal bilateral lower extremities. US/OB Anatomy Scan IMPRESSION: Single live intrauterine gestation with a mean gestational age of 20 weeks and 1 day. The measurements obtained today following within the normal expected range. Electronically Signed: Logan Arnold MD at 14:51 EDT Tel [phone], Service support , CC: YVES Jacobson; Jennie Grover MD House Admin: Signed BOTTLE PACKER OFFICE VISIT Observed: 02/12/2018 Status: F Source: [place] REPORT 9:33 AM [facility] [address] [place] [address] OFFICE VISIT Date of Service: 02/12/18 MR#: [id number] Acct: [id number] Name: JED COLON Rep #: [id number] : 1990 Provider: Yani Campoverde MD Age/Sex: 27/F Location: [facility] Status: Signed Intake Vital Signs02/12/18 Height 5 ft 10 in 02/12/18 Weight: 187 lb 8 oz 02/12/18 Body Mass Index (BMI) 26.9 02/12/18 Blood Pressure 121/80 Intake Visit Reasons: 18 WEEK OB Chief Complaint: est ob Manager Market Research Required: No Is patient in pain?: No Allergies Penicillins Allergy (Verified 02/12/18 09:14) Unknown Medications folic acid 800 mcg tablet 800 mcg PO QDAY 07/04/17 [History Confirmed 02/12/18] multivitamin,ek-ychp-zyefwbaf tablet 1 tab PO QDAY 07/04/17 [History Confirmed 02/12/18] Last Menstral Period: 09/24/17 Zika: Zika virus screening: Negative : No PFSH PFSH Surgical History History of tonsillectomy (Acute) Family History Grandfather Diabetes Social History Smoking Status: Never smoker alcohol intake: current details: social substance use type: does not use caffeine: No what type of physical activity do you participate in: none frequency: 1-2 times per week seatbelt use: always do you feel safe at home: Yes 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 OB Visit NEPTALI Calculator Estimated Delivery Date 07/07/18 Based on Ultrasound Date 11/26/17 Current WG 19w 2d Number 1 Expected Delivery Route/Plan Specific Issue/Plans flu vaccine: yes minichart given: yes tdap vaccine: [] rhogam: [] LARC form signed: [] labor support person: Nicholas pain management: [] cut cord/dad catch: [] : yes PP control planned: [] special requests: [] Initial Weight: Not Recorded Date Weight BP Urine PrFHR FuHt Pres MoCTX DilationFetal StVisit NoProviderComments E ot v te GA G Effac lucose ed Visit Notes Visit Date: 02/12/18 no vb cramping us scheduled Yani Campoverde MD on 02/12/18 Visit Date: 01/16/18 Doing well. No longer with dizziness or nausea. No VB, LOF. RENATA Harris on 01/16/18 ACOG First Trimester First Trimester: Discussed Diagnostics Diagnostics Labs Blood Type O POSITIVE 11/19/17 Antibody Screen NEGATIVE 11/19/17 Hct 37.9 % (37-47) 11/19/17 Hgb 12.5 g/dl (12.0-15.0) 11/19/17 Pap Smear Negative 04/14/14 Obstetrics Ultrasound 11/26/17 Rubella IgG Antibody 130.5 IU/mL 11/19/17 RPR NONREACTIVE (NONREACTIVE) 11/19/17 Hep Bs Antigen Negative (Negative) 11/19/17 Chlam trachomat DNA PCR Negative (Negative) 11/19/17 N.gonorrhoeae DNA (PCR) Negative (Negative) 11/19/17 Miscellaneous Test 07/04/17 Details: HIV: Urine Culture: Sequential Screen: NIPT Screen: Results [id number] Office Urine Glucose Negative Last Edit by Minnie Rivera on 02/12/18 09:16 Office Urine Protein Negative Last Edit by Minnie Rivera on 02/12/18 09:16 Assessment AND Plan Problems 1. Encounter for supervision of normal first in first trimester Z34.01 PRR NEPTALI 07/07/18 gender suprise Spouse Nicholas 2. 19 weeks gestation of Z3A.19 Plan ACOG trimester education reviewed and updated. see problem list details for updated plan management information and see below for orders placed at this visit. GA appropriate handout given. Orders Orders: Coding Level of Care Code OB Routine Diagnoses Encounter for supervision of normal first in first trimester Z34.01 Trimester: first trimester 19 weeks gestation of Z3A.19 Weeks of gestation: 19 weeks 02/12/18 0933 <Electronically signed by Yani Campoverde MD> Date Yani Campoverde MD [facility] Signature: Date (if applicable) CC: OFFICE VISIT REPORT Observed: 02/09/2018 Status: F Source: [place] 12:[address] [address] OFFICE VISIT Date of Service: 02/06/18 MR#: [id number] Acct: [id number] Patient: JED COLON Rep #: [id number] : 1990 Provider: Yani Campoverde MD Age/Sex: 27/F Location: [facility] Status: Signed Intake Vital Signs02/06/18 Height 5 ft 10 in Intake Visit Reasons: tetanus shot Chief Complaint: Tdap Injection Manager Market Research Required: No Is patient in pain?: No Allergies Penicillins Allergy (Verified 02/06/18 09:24) Unknown Medications folic acid 800 mcg tablet 800 mcg PO QDAY 07/04/17 [History Confirmed 02/06/18] multivitamin,fq-uhtd-cfetvtiv tablet 1 tab PO QDAY 07/04/17 [History Confirmed 02/06/18] Immunizations Boostrix Tdap Performing Provider: Yani Campoverde MD Administered by: Minnie Rivera on 02/06/18 09:25 Dose Route Admin Location Lot Number Expiration Date 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 0.5 mL IM Right Arm (SQ) [id number] 09/28/19 41259-148-56 [employer] VIS Given Date VIS Publication Date 02/06/18 08/24/14 Eligibility Eligibility Date Assessment AND Plan Orders Orders: Medications Discontinued: Boostrix Tdap (diphth,pertus(acell),tetanus) Dis0.5 mL IM ONCE NS Z23 Minnie Rivera continued Reason: Office Medication has been Docum ented as given 02/09/18 0012 <Electronically signed by Yani Campoverde MD> Date Yani Campoverde MD Cosigner Signature: Date (if applicable) CC: BOTTLE PACKER OFFICE VISIT Observed: 01/16/2018 Status: F Source: [place] REPORT 4:07 PM [facility] [address] [place] [address] OFFICE VISIT Date of Service: 01/16/18 MR#: [id number] Acct: [id number] Name: JED COLON Rep #: [id number] : 1990 Provider: YVES Jacobson Age/Sex: 27/F Location: [facility] Status: Signed Intake Vital Signs01/16/18 Height 5 ft 10 in 01/16/18 Weight: 186 lb 01/16/18 Body Mass Index (BMI) 26.6 01/16/18 Blood Pressure 122/74 Intake Visit Reasons: 14 WEEK OB Manager Market Research Required: No Accompanied by: Is patient in pain?: No Allergies Penicillins Allergy (Verified 01/16/18 15:27) Unknown Medications folic acid 800 mcg tablet 800 mcg PO QDAY 07/04/17 [History Confirmed 01/16/18] multivitamin,xx-madf-uesmakfd tablet 1 tab PO QDAY 07/04/17 [History Confirmed 01/16/18] Last Menstral Period: 09/24/17 Zika: Zika virus screening: Negative : No PFSH PFSH Surgical History History of tonsillectomy (Acute) Family History Grandfather Diabetes Social History Smoking Status: Never smoker alcohol intake: current details: social substance use type: does not use caffeine: No what type of physical activity do you participate in: none frequency: 1-2 times per week seatbelt use: always do you feel safe at home: Yes 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 OB Visit NEPTALI Calculator Estimated Delivery Date 07/07/18 Based on Ultrasound Date 11/26/17 Current WG 15w 3d Number 1 Expected Delivery Route/Plan Specific Issue/Plans flu vaccine: yes minichart given: yes tdap vaccine: [] rhogam: [] LARC form signed: [] labor support person: Nicholas pain management: [] cut cord/dad catch: [] : yes PP control planned: [] special requests: [] Initial Weight: Not Recorded Date Weight BP Urine PrFHR FuHt Pres MoCTX DilationFetal StVisit NoProviderComments E ot v te GA G Effac lucose ed Visit Notes Visit Date: 01/16/18 Doing well. No longer with dizziness or nausea. No VB, LOF. RENATA Harris on 01/16/18 ACOG First Trimester First Trimester: Discussed Diagnostics Diagnostics Labs Blood Type O POSITIVE 11/19/17 Antibody Screen NEGATIVE 11/19/17 Hct 37.9 % (37-47) 11/19/17 Hgb 12.5 g/dl (12.0-15.0) 11/19/17 Obstetrics Ultrasound 11/26/17 VZV IgG Antibody 292 index (Immune >165) 02/04/14 Rubella IgG Antibody 130.5 IU/mL 11/19/17 RPR NONREACTIVE (NONREACTIVE) 11/19/17 Hep Bs Antigen Negative (Negative) 11/19/17 Chlam trachomat DNA PCR Negative (Negative) 11/19/17 N.gonorrhoeae DNA (PCR) Negative (Negative) 11/19/17 Miscellaneous Test 07/04/17 Details: HIV: Urine Culture: Sequential Screen: NIPT Screen: Results [id number] Office Urine Glucose Negative Last Edit by Meaghan Moore on 01/16/18 15:31 Office Urine Protein Negative Last Edit by Meaghan Moore on 01/16/18 15:31 Assessment AND Plan Problems 1. Encounter for supervision of normal first in first trimester Z34.01 PRR NEPTALI 07/07/18 Spouse Nicholas 2. 15 weeks gestation of Z3A.15 Plan Orders placed: anatomy US Reviewed of labor precautions, movement/kick counts ACOG trimester education reviewed and updated See problem list details for updated plan of care Gestational age appropriate handout given RTO: 4 weeks Orders Orders: Coding Level of Care Code OB Routine Diagnoses Encounter for supervision of normal first in first trimester Z34.01 Trimester: first trimester 15 weeks gestation of Z3A.15 01/16/18 1607 <Electronically signed by Karey YANEZ> Date Karey YANEZ Cosigner Signature: Date (if applicable) CC: BOTTLE PACKER OFFICE VISIT Observed: 12/24/2017 Status: F Source: [place] REPORT 6:30 AM [facility] [place] [address] [place] [address] OFFICE VISIT Date of Service: 12/17/17 MR#: [id number] Acct: [id number] Name: JED COLON Rep #: [id number] : 1990 Provider: Yani Campoverde MD Age/Sex: 27/F [place] [facility] Status: Signed Intake Vital Signs12/17/17 Height 5 ft 10 in 12/17/17 Weight: 185 lb 2 oz 12/17/17 Body Mass Index (BMI) 26.5 12/17/17 Blood Pressure 118/82 Intake Visit Reasons: 10 WEEK OB Chief Complaint: est ob Manager Market Research Required: No Is patient in pain?: No Allergies Penicillins Allergy (Verified 12/17/17 14:56) Unknown Medications folic acid 800 mcg tablet 800 mcg PO QDAY 07/04/17 [History Confirmed 12/17/17] multivitamin,dv-ohtk-fqdghdwp tablet 1 tab PO QDAY 07/04/17 [History Confirmed 12/17/17] Last Menstral Period: 09/24/17 Zika: Zika virus screening: Negative : No PFSH PFSH Surgical History History of tonsillectomy (Acute) Family History Grandfather Diabetes Social History Smoking Status: Never smoker alcohol intake: current details: social substance use type: does not use caffeine: No what type of physical activity do you participate in: none frequency: 1-2 times per week seatbelt use: always do you feel safe at home: Yes 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 OB Visit NEPTALI Calculator Estimated Delivery Date 07/07/18 Based on Ultrasound Date 11/26/17 Current WG 12w 1d Number 1 Comments: fht 140s Expected Delivery Route/Plan Specific Issue/Plans flu vaccine: yes minichart given: [] tdap vaccine: [] rhogam: [] LARC form signed: [] labor support person: [] pain management: [] cut cord/dad catch: [] : [] PP control planned: [] special requests: [] ACOG First Trimester First Trimester: Discussed Diagnostics Diagnostics Labs Blood Type O POSITIVE 11/19/17 Antibody Screen NEGATIVE 11/19/17 Hct 37.9 % (37-47) 11/19/17 Hgb 12.5 g/dl (12.0-15.0) 11/19/17 Obstetrics Ultrasound 11/26/17 VZV IgG Antibody 292 index (Immune >165) 02/04/14 Rubella IgG Antibody 130.5 IU/mL 11/19/17 RPR NONREACTIVE (NONREACTIVE) 11/19/17 Hep Bs Antigen Negative (Negative) 11/19/17 Chlam trachomat DNA PCR Negative (Negative) 11/19/17 N.gonorrhoeae DNA (PCR) Negative (Negative) 11/19/17 Miscellaneous Test 07/04/17 Details: HIV: Urine Culture: Sequential Screen: NIPT Screen: Results [id number] Office Urine Glucose Negative Last Edit by Minnie Rivera on 12/17/17 14:57 Office Urine Protein Negative Last Edit by Minnie Rivera on 12/17/17 14:57 Assessment AND Plan Problems 1. Encounter for supervision of normal first in first trimester Z34.01 PRR NEPTALI 07/07/18 Spouse Nicholas Plan routine care viable IUP seen Orders Orders: Coding Level of Care Code OB Routine Diagnoses Encounter for supervision of normal first in first trimester Z34.01 12/24/17 0630 <Electronically signed by Yani Campoverde MD> Date Yani Campoverde MD Cosigner Signature: Date (if applicable) CC: INIT OB < 14WKS US Observed: 11/26/2017 Status: F Source: [place] 1:27 PM [facility] REPOSITORY [facility] Imaging Services [address] [place] [address] Init OB < 14Wks US MR#: [id number] Acct: [id number] Name: JED COLON Rep #: [id number] : 1990 F 26 From: Logan Arnold MD PCP: Jennie Grover MD Status: REG CLI Study: Init OB < 14Wks US Date of Exam: 11/26/17 Exam# [id number] Ordering Dr: Karey Jacobson YARD WORKER-C STUDY: FIRST TRIMESTER OBSTETRICAL ULTRASOUND REASON FOR EXAM: Female, 26 years old. dating. LMP: September 24, 2017. TECHNIQUE: Transabdominal and Transvaginal PRIOR ULTRASOUND: None. FINDINGS: There is visualization of a single gestational sac in a normal intrauterine position. The mean sac diameter (MSD) measures 2.67 cm, indicating an estimated gestational age (EGA) of 7 weeks, 6 days. The gestational sac shape is within normal limits. There is a visualized yolk sac. The yolk sac measures 5.3 mm. The placenta is non-visualized. There is visualization of a live embryo. The crown-rump length (CRL) measures 1.77 cm, indicating an estimated gestational age (EGA) of 8 weeks, 2 days. There is demonstrated cardiac activity with a heart rate of 139 bpm. The estimated gestation age (EGA) by LMP is 9 weeks, 0 days. The estimated date of delivery (NEPTALI) by LMP is July 01, 2018. The estimated gestation age (EGA) by US is 8 weeks, 1 days. The estimated date of delivery (NEPTALI) by US is July 07, 2018. The uterus measures 11.6 x 6.4 cm x 5.7 cm. There is no demonstrated uterine fibroid. The cervix is closed. There is evidence of a 1 cm x 1.3 cm x 0.6 cm resolving subchorionic bleed. The right ovary was not visualized. The left ovary measures 3.3 cm x 3.5 cm x 1.6 cm. There is no left ovarian cyst. There is no visualized left adnexal mass or complex lesion. There is no fluid in the cul de sac. US/Init OB < 14Wks US IMPRESSION: Single live uterine gestation with mean gestational age of 8 weeks and 1 day. Electronically Signed: Logan Arnold MD at 14:24 EDT Tel [phone], Service support , CC: YVES Jacobson; Jennie Grover MD House Admin: Signed CT/NG [facility] BY PCR Collected: 11/19/2017 Status: F Source: [place] 5:35 PM [facility] REPOSITORY TYPE CODE TESTS RESULT OUT OF RANGE REFERENCE UNITS LAB L8200.2100 Negative Normal Chlam Negative Trac PCR LAB L8200.2200 Negative Normal NG by Negative PCR Performed By: #### L8200.1999, M100.0650 #### [facility] Laboratory [address] [place], [address] Observed: 11/19/2017 Status: F Source: [place] CULTURE, URINE 5:35 PM [facility] REPOSITORY Urine Culture Culture exhibits no growth. Performed By: #### L8200.1999, M100.0650 #### [facility] Laboratory [address] [place], [address] CBC W/DIFF, AUTOMATED Collected: 11/19/2017 Status: F Source: [place] 1:34 PM [facility] REPOSITORY TYPE CODE TESTS RESULT OUT OF RANGE REFERENCE UNITS LAB L100.1000 4.4-11.0 K/mm3 Normal WBC 9.9 LAB L100.1200 4.2-5.4 M/mm3 Normal RBC 4.40 LAB L100.1300 12.0-15.0 g/dl Normal HGB 12.5 LAB L100.1400 37-47 % Normal HCT 37.9 LAB L100.1500 81-99 fL Normal MCV 86.1 LAB L100.1600 27.0-32.0 pg Normal MCH 28.4 LAB L100.1700 32-36 g/gl Normal MCHC 33.0 LAB L100.1810 11.6-14.6 % Normal RDW CV 12.6 LAB L100.1820 35.1-43.9 fl Normal RDW SD 40.0 LAB L100.1900 150-450 K/mm3 Normal PLT 285 LAB L100.2000 6.2-12.0 fl Normal MPV 9.9 LAB L100.2100 47-70 % Normal NEUT% 67.3 LAB L100.2200 19-41 % Normal LY% 23.8 LAB L100.2300 0-10 % Normal MONO% 6.8 LAB L100.2400 0-5 % Normal EO% 1.6 LAB L100.2500 0-1 % Normal BASO% 0.3 LAB L100.2550 0.0-0.9 % Normal IM GRAN % 0.200 Result Comment: IG% - Immature Granulocytes (promyelocytes, myelocytes and metamyelocytes) > 1% indicates that a LEFT SHIFT is Present. LAB L100.2620 2.0-7.7 X10 3/uL Normal Absolute Neut 6.7 LAB L100.2720 0.83-4.51 X10 3/ul Normal Absolute Lymph 2.36 Performed By: #### L100.0100, B101.7450 #### [facility] Laboratory [address] [place], [address] TYPE AND SCREEN Collected: 11/19/2017 Status: F Source: [place] 1:[place] [facility] [place] Order Comment: Reason for Type AND Screen/Red Cells: TYPE CODE TESTS RESULT OUT OF RANGE REFERENCE UNITS LAB B10.0800 O Normal BLOOD TYPE GEL POSITIVE LAB B100.4000 Normal Antibody NEGATIVE Screen Performed By: #### L100.0100, B101.7450 #### [facility] Laboratory [address] [place], [place], [id number] RUBELLA IGG Collected: 11/19/2017 Status: F Source: [place] 1:[place] [facility] [place] TYPE CODE TESTS RESULT OUT OF RANGE REFERENCE UNITS LAB L509.4000 IU/mL Normal Rubella IgG 130.5 Result Comment: Antibody results Interpretation of Immune Status < 5 IU/ml Presumed Non-immune 5 - < 10 IU/ml Equivocal > or = 10 IU/ml Presumed Immune Performed By: #### L509.4000, L3890.6005 #### [facility] Laboratory [address] [place], [address] #### L3100.0390 #### [facility] (refer to report for specific site) refer to report for address and phone number HIV - [facility] Collected: 11/19/2017 Status: F Source: [place] 1:34 PM [facility] REPOSITORY TYPE CODE TESTS RESULT OUT OF RANGE REFERENCE UNITS LAB L3890.6005 Nonreactive Normal HIV - WC Non-Reactive Performed By: #### L509.4000, L3890.6005 #### [facility] Laboratory [address] [place], [address] #### L3100.0390 #### [facility] (refer to report for specific site) refer to report for address and phone number HEPATITIS B SURFACE Collected: 11/19/2017 Status: F Source: EUGENIA AG 1:34 PM [facility] REPOSITORY TYPE CODE TESTS RESULT OUT OF RANGE REFERENCE UNITS LAB L3100.0400 Negative Normal HB Negative SURF AG Result Comment: Performed at: - [facility] [address] [id number] Contact Centre Supervisor: Abram Cline PhD, Phone: [phone] Performed By: #### L509.4000, L3890.6005 #### [facility] Laboratory [address] [place] [address] [place], [address] #### L3100.0390 #### [facility] (refer to report for specific site) refer to report for address and phone number RAPID PLASMIN REAGIN Collected: 11/19/2017 Status: F Source: EUGENIA (RPR) 1:34 PM [facility] REPOSITORY TYPE CODE TESTS RESULT OUT OF REFERENCE UNITS RANGE LAB L700.5000 NONREACTIVE NONREACTIVE Normal RPR Performed By: #### L700.5000 #### [facility] Laboratory [facility] [place], [address] BOTTLE PACKER OFFICE VISIT Observed: 11/19/2017 Status: F Source: EUGENIA REPORT 10:38 AM [facility] REPOSITORY [facility] [address] [place] [address]. [address] [place] [address] OFFICE VISIT Date of Service: 11/19/17 MR#: [id number] Acct: [id number] Name: JED COLON Rep #: [id number] : 1990 Provider: YVES Jacobson Age/Sex: 26/F Location: [facility] Status: Signed Intake Vital Signs11/19/17 Height 5 ft 10 in 11/19/17 Weight: 189 lb 8 oz 11/19/17 Body Mass Index (BMI) 27.1 11/19/17 Blood Pressure 116/76 Intake Visit Reasons: NOB - LMP 09/24 Manager Market Research Required: No Accompanied by: Is patient in pain?: No Allergies Penicillins Allergy (Verified 11/19/17 09:07) Unknown Medications folic acid 800 mcg tablet 800 mcg PO QDAY 07/04/17 [History Confirmed 11/19/17] multivitamin,ec-kdez-cwwiitmx tablet 1 tab PO QDAY 07/04/17 [History Confirmed 11/19/17] Last Menstral Period: 09/24/17 Zika: Zika virus screening: Negative : No PFSH PFSH Surgical History History of tonsillectomy (Acute) Family History Grandfather Diabetes Social History Smoking Status: Never smoker alcohol intake: current details: social substance use type: does not use caffeine: No what type of physical activity do you participate in: none seatbelt use: always do you feel safe at home: Yes 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 Thinks ovulation was 1 week later per crystal and has 33 day cycles OB Visit NEPTALI Calculator Estimated Delivery Date 07/12/18 Based on Ultrasound Date 11/19/17 Current WG 6w 3d Number 1 Comments: CRL 7.3mm 6 w 3d Not consistent with LMP. formal US next week. FHT 147. IUP. Small subchorionic hemorrhage. Expected Delivery Route/Plan Specific Issue/Plans flu vaccine: yes minichart given: [] tdap vaccine: [] rhogam: [] LARC form signed: [] labor support person: [] pain management: [] cut cord/dad catch: [] : [] PP control planned: [] special requests: [] Menstrual History Last Menstral Period: 09/24/17 Reported LMP: definite Normal amount/duration: Yes Frequency in days: 5 On hormonal BC at conception: No Antepartum Record Genetic Screening: Congenital Heart Defect: Other, Neural Tube Defect: Other, Hemoglobinopathy Or Carrier: Other, Cystic Fibrosis: Other, Chromosome Abnormality: Other, Naun-Sachs: Other, Hemophilia: Other, Intellectual Disability/Autism: Other, Recurrent Loss/Stillbirth: Other, Other Structural Defect: Other, Other Genetic Disease: Partner (FOB tourettes), Maternal Metabolic Disorder: Other Infection History: Live with someone with TB or Exposed to TB: No, Patient or Partner has history of Genital Herpes: No, Rash or Viral illness since last mentrual period: No, Prior GBS-Infected child: No, History of STD: No, HIV Infection: No, History of Hepatitis: No, Recent travel outside of [place]: No, Concern for Hep exposure: No, Varicella immune: Yes (had chickenbox) Medical History Medical History: Positive: Operations/hospitalizations (tonsils), Negative: Diabetes, Hypertension, Heart disease, Auto-immune disorder, Kidney disease/UTI, Neurologic/epilepsy, Psychiatric, Depression/ depression, Hepatitis/liver disease, Varicosities/phlebitis, Thyroid dysfunction, Trauma/domestic violence, History of blood transfusions, D (Rh) Sensitized, Pulmonary (e.g.,TB,Asthma), Seasonal allergies, Drug/latex allergies/reactions, Breast, Body Component Engineer surgery, Anesthetic complications, History of abnormal pap, Uterine anomaly/estela, Infertility, Anti-retroviral treatment, Relevant family history, Other ROS Const Reports as per HPI Card Denies chest pain, Denies shortness of breath Resp Denies shortness of breath GI Denies change in stools Denies difficulty urinating, Denies abnormal vaginal bleeding, Denies vaginal odor, Denies vaginal itching, Denies vaginal discharge Assessment AND Plan Problems 1. Encounter for supervision of normal first in first trimester Z34.01 Grav 1 NEPTALI 07/01/18 Spouse Nicholas 2. 6 weeks gestation of Z3A.01 Plan Patient oriented to practice and discussed care expectations and screenings. ACOG book offered to patient. labs and 19-20 week anatomy ultrasound ordered Genetic screening offered to patient and patient chose: undecided early US 6 weeks, LMP 8 weeks. Proceed with formal US next week to confirm NEPTALI RTO 4 weeks. Orders Orders: Coding Level of Care Code Off vis,est,level 4 Diagnoses Encounter for supervision of normal first in first trimester Z34.01 Trimester: first trimester 6 weeks gestation of Z3A.01 11/19/17 1038 <Electronically signed by Karey YANEZ> Date Karey YANEZ Cosigner Signature: Date (if applicable) CC: ALLERGIES ALLERGIES DATE TYPE / CODE NAME / CODE REACTION SEVERITY SOURCE 07/07/2018 Drug Penicillins/[id number] Unknown Unknown [place] Allergy/416 0476(RXNORM) [facility] 479475([facility] Repository Drug/456830 penicillins [id number] [facility] 003([facility]) System Repository Drug/434224 Augmentin [id number] [facility] 003([facility]) System Repository Drug/146498 Zithromax Z-Enrico [id number] [facility] 003([facility]) System Repository ENCOUNTERS ENCOUNTERS ADMIT/DISCHARGE ACCOUNT NUMBER ADMITTING ENCOUNTER LOCATION SOURCE CLASS 07/07/2018/07/10/19 [id number] Gilles Inpatient [place] Lomeli Encounter [facility] ing:WPRoom: Repository XD590Vqq: 1 07/07/2018 [id number] Gilles Ambulatory BMSBuilding:Adarsh [place]om[place].[facility] Repository 07/07/2018 [id number] Teresa Campoverde BMSBuilding:Aadrsh Lomeli MS.CF.[facility] Repository 07/07/2018 [id number] Gilles, Ambulatory BMSBuilding:Adarsh Lomeli MS.CF.[facility] Repository 07/07/2018 [id number] Gilles, Ambulatory [place] [facility] ing:WP Repository 07/03/2018/07/03/19 [id number] Ambulatory BMSBuilding:B [place] 19 MS.[facility] Repository 06/26/2018 [id number] Ambulatory BMSBuilding:B [place] [facility] Repository 06/26/2018/06/26/20 [id number] Ambulatory BMSBuilding:B [place] 18 [facility] Repository 06/17/2018/06/17/20 [id number] Ambulatory BMSBuilding:B [place] 18 MS.[facility] Repository 06/16/2018/06/16/20 [id number] Ambulatory BMSBuilding:B [place] 18 [facility] Repository 06/09/2018 [id number] [facility] Repository 06/09/2018 [id number] Ambulatory BMSBuilding:B [place] [facility] Repository 06/09/2018/06/09/20 [id number] Ambulatory BMSBuilding:B [place] 18 [facility] Repository 06/02/2018/06/02/20 [id number] Ambulatory BMSBuilding:B [place] 18 MS.[facility] Repository 05/26/2018 [id number] Ambulatory BMSBuilding:B [place] MS.[facility] Repository 05/19/2018/05/19/20 [id number] Ambulatory BMSBuilding:B [place] 18 MS.[facility] Repository 05/12/2018 [id number] Ambulatory BMSBuilding:B [place] MS.[facility] Repository 05/05/2018/05/05/20 [id number] Ambulatory BMSBuilding:B [place] 18 [facility] Repository 05/01/2018/05/01/20 [id number] Ambulatory BMSBuilding:B [place] 18 [facility] Repository 04/21/2018/04/21/20 [id number] Ambulatory BMSBuilding:B [place] 18 MS.[facility] Repository 04/07/2018 [id number] [facility] Rep[facility] 04/07/2018/04/07/20 [id number] Ambulatory BMSBuilding:B [place] 18 MS.[facility] Repository 03/19/2018/03/19/20 [id number] Ambulatory Medical [facility] 18 [facility]: Repository Med AssocRoom: Room 1 03/12/2018 [id number] [facility] Repository 03/12/2018/03/12/20 [id number] Ambulatory BMSBuilding:B [place] 18 [facility] Repository 03/07/2018 [id number] [facility] Repository 03/04/2018 [id number] [facility] Repository 03/04/2018/03/04/20 [id number] Ambulatory BMSBuilding:B [place] 18 [facility] Repository 02/18/2018 [id number] [facility]US Repository 02/12/2018/02/13/20 [id number] Ambulatory BMSBuilding:B [place] 18 MS.[facility] Repository 02/06/2018/02/07/20 [id number] Ambulatory BMSBuilding:B [place] 18 MS.[facility] Repository 01/16/2018/01/17/20 [id number] Ambulatory BMSBuilding:B [place] 18 [facility] Repository 12/17/2017/12/18/19 [id number] Ambulatory BMSBuilding:B [place] 18 [facility] Repository 11/26/2017 [id number] Ambulatory [facility] ing:OPUS Repository 11/19/2017 [id number] Ambulatory [facility] ing:LABSPEC Repository 11/19/2017 [id number] Ambulatory [place] [facility] ing:LAB Repository 11/19/2017/11/20/19 [id number] Ambulatory BMSBuilding:B [place] 18 [facility] Repository 07/04/2017/07/04/19 [id number] Ambulatory BMSBuilding:B [place] 18 [facility] Repository PAYERS PAYERS ENCOUNTER GUARANTOR PAYER SUBSCRIBER SOURCE 07/07/2018 JED N Primary Insurance:[facility] JED N [place] [id number] [facility] 6286-48-[place] Number: Repository [address]Tiq: 419 [id number] [phone] () Date:5915-37-81[address] [address]WUYWKBSRU, [place] [address]RX: CHECK WEBSITE 07/07/2018 Secondary NOT GIVENUNK [place] Insurance:SELF PAY [facility] Number: Effective Repository Date:2018-07-07 07/07/2018 JED N Primary Insurance:[facility] N [place] [id number] [facility] 0157-75-93IGBCharl[place], [place] Number: Repository [address]Glt: 419 [id number] [phone] () Date:0879-34-58DR [address] [address]YXVJBQTBE, [place] [address]XI: CHECK WEBSITE 07/07/2018 Secondary NOT GIVENUNK [place] Insurance:SELF PAY [facility] Number: Effective Repository Date:2018-07-07 07/07/2018 JED N Primary Insurance:[facility] [place] [id number] [facility]: [facility] 0823-46-12TQACharl[place], [place] Number: Repository [address]Aqm: (953) [id number] [phone] (HP) Date:8045-23-52PY [address] [address]DGMWXMYRO, [place] [address]QM: CHECK WEBSITE 07/07/2018 Secondary NOT GIVENUNK [place] Insurance:SELF PAY [facility] Number: Effective Repository Date:2018-07-07 07/07/2018 JED N Primary Insurance:[facility] JED N [place] [id number] [facility]: [facility] 2700-76-76VIICharl[place], [place] Number: Repository [address]Ehe: (127) [id number] [phone] () Date:3234-44-76CU [address] [address]IKDTXWFHF, [place] [address]HB: CHECK WEBSITE 07/07/2018 Secondary NOT GIVENUNK [place] Insurance:SELF PAY [facility] Number: Effective Repository Date:2018-07-07 07/07/2018 JED N Primary Insurance[facility] N [place] [id number] [facility]: [facility] 6797-26-99FTZCharl[place], [place] Number: Repository [address]Oca: 419 [id number] [phone] () Date:7587-74-18CI [address] [address]NUHJBCNNK, [place] [address]XN: CHECK WEBSITE 07/07/2018 Secondary NOT GIVENUNK [place] Insurance:SELF PAY [facility] Number: Effective Repository Date:2018-06-02 07/03/2018 JED N Primary Insurance:[facility] JED N [place] [id number] [facility]DOB: [facility] 8123-97-04URLCharl[place], [place] Number: Repository [address]Gzm: (297) [id number] [phone] () Date:1658-06-53AN [address] [address]AWEYTYABY, [place] [address]CP: CHECK WEBSITE 07/03/2018 Secondary NOT GIVENUNK [place] Insurance:SELF PAY [facility] Number: Effective Repository Date:2018-07-03 06/26/2018 JED N Primary Insurance:[facility] JED N [place] [id number] [facility]: [facility] 5042-03-80ILCCharl[place], [place] Number: Repository [address]Jhb: 330 [id number] [phone] (HP) Date:6518-88-03HI [address] [address]EYGOOTFAG, [place] [address]NI: CHECK WEBSITE 06/26/2018 Secondary NOT GIVENUNK [place] Insurance:SELF PAY [facility] Number: Effective Repository Date:2018-01-16 06/26/2018 JED N Primary Insurance:[facility] JED N [place] [id number] [facility]: Community W [facility] 6371-22-23OYGCharl[place], [place] Number: Repository [address]Bjz: (128) [id number] [phone] (HP) Date:2384-71-33EW [address] [address]CZCZANJEC, [place] [address]RO: CHECK WEBSITE 06/26/2018 Secondary NOT GIVENUNK [place] Insurance:SELF PAY [facility] Number: Effective Repository Date:2018-04-02 06/17/2018 JED N Primary Insurance:[facility] JED N [place] [id number] [facility]: Community W [facility] 5359-32-01KXNCharl[place], [place] Number: Repository [address]Peb: (034) [id number] [phone] (HP) Date:3009-34-95TI [address] [address]AQTDRWDKY, [place] [address]DI: CHECK WEBSITE 06/17/2018 Secondary NOT GIVENUNK [place] Insurance:SELF PAY [facility] Number: Effective Repository Date:2018-06-17 06/16/2018 JED N Primary Insurance:[facility] JED N [place] [id number] [facility]DOB: Community W [facility] 3438-65-43QXGCharlotte, [place] Number: Repository [address]Pjw: (172) [id number] [phone] (HP) Date:9976-41-68RX [address] [address]ZPMYGTWZM, [place] [address]IO: CHECK WEBSITE 06/16/2018 Secondary NOT GIVENUNK [place] Insurance:SELF PAY [facility] Number: Effective Repository Date:2018-06-16 06/09/2018 JED N Primary Insurance:[facility] JED N [place] [id number] [facility]DOB: [facility] 4193-20-97BGWCharl[place], [place] Number: Repository [address]Fbg: ([phone]) [id number] [phone] (HP) Date:8645-39-37JK [address] [address]TBLZKBKYC, [place] [address]FO: CHECK WEBSITE 06/09/2018 Secondary NOT GIVENUNK [place] Insurance:SELF PAY [facility] Number: Effective Repository Date:2018-06-09 06/09/2018 JED N Primary Insurance:[facility] JED N [place] [id number] [facility]DOB: [facility] 3301-51-90JQVCharl[place], [place] Number: Repository [address]Lyw: (611) [id number] [phone] (HP) Date:7711-40-89ON [address] [address]RAJZLBOOB, [place] [address]DX: CHECK WEBSITE 06/09/2018 Secondary NOT GIVENUNK [place] Insurance:SELF PAY [facility] Number: Effective Repository Date:2018-01-16 06/09/2018 JED N Primary Insurance:[facility] JED N [place] [id number] [facility]: [facility] 8155-04-31FXACharl[place], [place] Number: Repository [address]Vci: (455) [id number] [phone] (HP) Date:8343-29-62PI [address] [address]JAKKWKMCR, [place] [address]CC: CHECK WEBSITE 06/09/2018 Secondary NOT GIVENUNK [place] Insurance:SELF PAY [facility] Number: Effective Repository Date:2018-06-09 06/02/2018 JED N Primary Insurance:[facility] JED N [place] [id number] [facility]: [facility] 7670-49-67FYLCharl[place], [place] Number: Repository [address]Ykh: (061) [id number] [phone] (HP) Date:4570-83-79PM [address] [address]ULJGRYGQI, [place] [address]EL: CHECK WEBSITE 06/02/2018 Secondary NOT GIVENUNK [place] Insurance:SELF PAY [facility] Number: Effective Repository Date:2018-06-02 05/26/2018 JED N Primary Insurance:[facility] JED N [place] [id number] [facility]: Community [facility] 4173-49-60SZTCharl[place], [place] Number: Repository [address]Roc: 330 [id number] [phone] (HP) Date:7097-89-61RH [address] [address]WKLAYYAZF, [place] [address]ZE: CHECK WEBSITE 05/26/2018 Secondary NOT GIVENUNK [place] Insurance:SELF PAY [facility] Number: Effective Repository Date:2018-01-16 05/19/2018 JED N Primary Insurance:[facility] JED N [place] [id number] [facility]: Community [facility] 1537-38-53DGOCharl[place], [place] Number: Repository [address]Zgy: (998) [id number] [phone] (HP) Date:2219-97-58QC [address] [address]IDJJYMFBS, [place] [address]IN: CHECK WEBSITE 05/19/2018 Secondary NOT GIVENUNK [place] Insurance:SELF PAY [facility] Number: Effective Repository Date:2018-05-19 05/12/2018 JED N Primary Insurance:[facility] JED N [place] [id number] [facility]: Community [facility] 7844-90-45FAFCharlotte, [place] Number: Repository [address]Abe: (863) [id number] [phone]) Date:6331-58-33BI [address] [address]YTYRMBJGK, [place] [address]RQ: CHECK WEBSITE 05/12/2018 Secondary NOT GIVENUNK [place] Insurance:SELF PAY [facility] Number: Effective Repository Date:2018-01-16 05/05/2018 JED N Primary Insurance:[facility] JED N [place] [id number] [facility]: [facility] 3337-83-64TDRCharlotte, [place] Number: Repository [address]Snw: 419 [id number] [phone] (HP) Date:5283-69-83CI [address] [address]ALIPFJDUR, [place] [address]KK: CHECK WEBSITE 05/05/2018 Secondary NOT GIVENUNK [place] Insurance:SELF PAY [facility] Number: Effective Repository Date:2018-05-05 05/01/2018 JED N Primary Insurance:[facility] JED N [place] [id number] [facility]B: [facility] 5434-53-79QAICharlotte, [place] Number: Repository [address]Hmp: ([phone]) [id number] [phone] (HP) Date:0951-72-78KU [address] [address]MCGZRSWQX, [place] [address]PW: CHECK WEBSITE 05/01/2018 Secondary NOT GIVENUNK [place] Insurance:SELF PAY [facility] Number: Effective Repository Date:2018-05-01 04/21/2018 JED N Primary Insurance:[facility] JED N [place] [id number] [facility]: [facility] 5311-72-08TNECharlotte, [place] Number: Repository [address]Aaw: (755) [id number] [phone] (HP) Date:9362-24-74OU [address] [address]BZDPQRREF, [place] [address]PN: CHECK WEBSITE 04/21/2018 Secondary NOT GIVENUNK [place] Insurance:SELF PAY [facility] Number: Effective Repository Date:2018-03-24 04/07/2018 JED N Primary Insurance:[facility] JED N [place] [id number] [facility]: Community [address] [facility] 2858-68-24HRKCharl[place], [place] Number: Repository [address]Xzo: (680) [id number] [phone] () Date:0162-45-99YB [address] [address]XWBCVXLCQ, [place] [address]TS: CHECK WEBSITE 04/07/2018 Secondary NOT GIVENUNK [place] Insurance:SELF PAY [facility] Number: Effective Repository Date:2018-04-07 04/07/2018 JED N Primary Insurance:[facility] JED N [place] [id number] [facility]: Community W [facility] 2842-95-83KDUCharl[place], [place] Number: Repository [address]Fxj: 419 [id number] [phone] () Date:5930-19-48MA [address] [address]JZRGWIHYE, [place] [address]BH: CHECK WEBSITE 04/07/2018 Secondary NOT GIVENUNK [place] Insurance:SELF PAY [facility] Number: Effective Repository Date:2018-01-16 03/19/2018 JED N Primary JED N [facility]: Insurance:[facility] [id number] System [facility] Number: Effective [address] [place] Repository [place], [place] Date:2018-03-04 [place] [address]Ifn: [id number] [address]Vvr: Name:CD:[id number] O () [address] [address]ERMPTHGTQ, ()Tel: (992) [place] [address]MQ: () [phone] 03/19/2018 Secondary KAYY Argueta EBERTDOB: [facility] Insurance:1500 [id number] [facility] System Number: Effective 2102[facility]BL[facility] Repository Date:2018-03-04 [place], [place] 8244-16-08Bjni [address]Fss: Name::[id number] [address], [place] ()Tel: ([phone]) [address]WP: () [phone] 03/12/2018 JED N Primary Insurance:[facility] JED N [place] [id number] [facility]: [facility] 0025-09-97XIZCharl[place], [place] Number: Repository [address]Rbb: (563) [id number] [phone] () Date:7559-26-08EY [address] [place] [address]AK: CHECK WEBSITE 03/12/2018 Secondary NOT GIVENUNK [place] Insurance:SELF PAY [facility] Number: Effective Repository Date:2018-03-12 03/12/2018 JED N Primary Insurance:[facility] [place] [id number] [facility]: [facility] 1385-58-79YPICharl[place], [place] Number: Repository [address]Uvv: (248) [id number] [phone] () Date:2901-40-00UB [address] [address]RTUUTYXFT, [place] [address]XQ: CHECK WEBSITE 03/12/2018 Secondary NOT GIVENUNK [place] Insurance:SELF PAY [facility] Number: Effective Repository Date:2018-01-16 03/07/2018 JED N Primary NOT GIVENUNK [place] [id number] Insurance:SELF PAY [place] Number: Effective Repository [address]Ics: 419) Date:2018-03-07 [phone] () 03/04/2018 JED N Primary Insurance:[facility] N Eug[place] [id number] [facility] [id number], [place] Number: Repository [id number]: ([phone] [id number] [phone] (HP) Date:8606-93-39ES [address] [address]IVGFSUGLT, [place] [address]FJ: CHECK WEBSITE 03/04/2018 Secondary NOT GIVENUNK [place] Insurance:SELF PAY [facility] Number: Effective Repository Date:2018-03-04 03/04/2018 JED N Primary Insurance:[facility] JED N Eugenia [id number] [facility] [id number], [place] Number: Repository [id number]: ([phone] [id number] [phone] (HP) Date:7444-90-32CO [address] [address]MYKWXHPGC, [place] [address]PF: CHECK WEBSITE 03/04/2018 Secondary NOT GIVENUNK [place] Insurance:SELF PAY [facility] Number: Effective Repository Date:2018-03-04 02/18/2018 JED N Primary Insurance:[facility] JED N [place] [id number] [facility]: [facility] [id number], [place] Number: Repository [phone]: ([phone]) [id number] [phone] (HP) Date:7516-77-13KB [address] [address]JDRMHLROG, [place] [address]IM: CHECK WEBSITE 02/18/2018 Secondary NOT GIVENUNK [place] Insurance:SELF PAY [facility] Number: Effective Repository Date:2017-11-19 02/12/2018 JED N [facility] [place] [id number] [facility]: [facility] [id number], [place] Number: Repository [id number]: 330 [id number] [phone] (HP) Date:8315-25-88JT [address] [address]BFDIXQXYW, [place] [address]EX: CHECK WEBSITE 02/12/2018 Secondary NOT GIVENUNK [place] Insurance:SELF PAY [facility] Number: Effective Repository Date:2018-02-12 02/06/2018 JED N Primary Insurance:[facility] JED N [place] [id number] [facility] 0092-06-52WTFCharl[place] Number: Repository [id number]: 330 [id number] [phone] () Date:6890-22-99HX [address] [address]IIFLZAXNI, [place] [address]AF: CHECK WEBSITE 02/06/2018 Secondary NOT GIVENUNK [place] Insurance:SELF PAY [facility] Number: Effective Repository Date:2018-02-06 01/16/2018 JED N Primary Insurance:[facility] JED N [place] [id number] [facility]: [facility] 1856-00-46XXYCharl[place], [place] Number: Repository [phone]: 330 [id number] [phone] () Date:6121-62-33DF [address] [address]MDEXTSPTV, [place] [address]RU: CHECK WEBSITE 01/16/2018 Secondary NOT GIVENUNK [place] Insurance:SELF PAY [facility] Number: Effective Repository Date:2018-01-16 12/17/2017 JED N Primary Insurance:[facility] JED N [place] [id number] [facility]: [facility] [id number] Number: Repository [address]Sjj: 330 [id number] [phone] () Date:0414-01-99VM [address] [address]DUXCMNFCT, [place] [address]VH: CHECK WEBSITE 12/17/2017 Secondary NOT GIVENUNK [place] Insurance:SELF PAY [facility] Number: Effective Repository Date:2017-12-17 11/26/2017 JED N Primary Insurance:[facility] JED N [place] [id number] [facility]: [facility] 2732-38-61RWECharl[place] Number: Repository [phone]: ([phone] [id number] [phone] (HP) Date:7123-18-39GF [address] [address]ABRSVIMVE, [place] [address]LE: CHECK WEBSITE 11/26/2017 Secondary NOT GIVENUNK [place] Insurance:SELF PAY [facility]: Effective Repository Date:2017-11-20 11/19/2017 JED N Primary Insurance:[facility] JED N [place] [id number] [facility]: [facility] [id number] Number: Repository [address]Fag: 330 [id number] [phone] () Date:8864-57-16MP [address] [address]MPMEGIVCQ, [place] [address]KT: CHECK WEBSITE 11/19/2017 Secondary NOT GIVENUNK [place] Insurance:SELF PAY [facility] Number: Effective Repository Date:2017-11-19 11/19/2017 JED N Primary Insurance[facility] N [place] [id number] [facility]: [facility] 5222-23-59SDVCharl[place] Number: Repository [address]Min: 330 [id number] [phone] () Date:1395-14-47XL [address] [address]TNWWDQHSX, [place] [address]XR: CHECK WEBSITE 11/19/2017 Secondary NOT GIVENUNK [place] Insurance:SELF PAY [facility] Number: Effective Repository Date:2017-11-19 11/19/2017 JED Primary Insurance:[facility] JED [place] [id number] [facility] 5092-23-47CSQCharl[place], [place] Number: Repository [id number]: 330 [id number] [phone] (HP) Date:0349-77-50MY [address] [address]TTQWRMDQI, [place] [address]OX: CHECK WEBSITE 11/19/2017 Secondary NOT GIVENUNK [place] Insurance:SELF PAY [facility] Number: Effective Repository Date:2017-11-19 07/04/2017 JED [facility] [id number] [facility] 2102JEROMESBL[facility] Number: [place], [place] [address]Kjn: [id number] Date:6006-10-81DE [address] ([address]) [address]133VTWHGCBJA, [place] [address]ZB: CHECK WEBSITE 07/04/2017 [facility]:SELF PAY [facility] Number: Effective Repository Date:2017-06-02
== END ==
PROVIDERS: Family Provider Family Medicine; PCP Family Medicine; Referring Provider Obstetrics & Gynecology; Visit Provider Obstetrics & Gynecology
DX: Z34.90 Encounter for supervision of normal pregnancy, unspecified, unspecified trimester (principal)
CPT/HCPCS: 87077; 87081; 87186

== ENCOUNTER 2018-07-07 13:00 | Inpatient (IN) | payer OTHER, SELFPAY ==
[2018-05-19 16:29] VITALS: BMI 29.8
[2018-07-03 09:32] VITALS: BMI 29.5
[2018-07-07 12:38] VITALS: BMI 29.7
[2018-07-07 12:58] LABS: ROM Internal Control Test YES-OK TO RESULT pt. (Internal QC)
[2018-07-07 13:00] LABS: ROM Patient Test POSITIVE (Negative)
[2018-07-07] MEDS: 0.9% Saline Lock 10 ML Syringe IV (13:59)
[2018-07-07 14:09] LABS: Hemoglobin 11.6 g/dl (12.0-15.0); Mean Corp Hgb Conc 32.2 g/gl (32-36); Mean Corpuscular Hgb 29.1 pg (27.0-32.0); Mean Corpuscular Volume 90.2 fL (81-99); Mean Platelet Vol. 9.9 fl (6.2-12.0); Platelet Count 266 K/mm3 (150-450); RBC Distribution Width CV 13.5 % (11.6-14.6); RBC Distribution Width SD 44.3 fl (35.1-43.9); Red Blood Count 3.99 M/mm3 (4.2-5.4); White Blood Count 9.3 K/mm3 (4.4-11.0)
[2018-07-07] MEDS: miSOPROStol 25 MCG TABLET PO ×3 (14:11→22:01)
[2018-07-07 14:14] LABS: Scan Indicated on CBC? Y/N NO
[2018-07-07] MEDS: Lactated Ringers 1,000 ML 50 ML IV (15:40)
[2018-07-08] MEDS: Oxytocin 30 units/NS 500 ml 30 UNITS/500 ML IV.SOLN 334 UNITS IV (07:41)
[2018-07-08] MEDS: Methylergonovine 0.2 MG/ML Ampul IM (07:42)
--- NOTE | 2018-07-08 08:07 | PCM.HP.OB ---
- Problem List (1) PROM (premature rupture of membranes) Status: Acute (2) GBS (group B Streptococcus carrier), +RV culture, currently Status: Acute Comment: treat in labor with clindamycin (3) UTI (urinary tract infection) during Status: Acute Qualifiers: Comment: Repeat culture-neg (4) Status: Acute Qualifiers: Comment: genetic, carrier, NTD screening declined. normal anatomy scan. (5) Supervision of normal first Status: Acute Qualifiers: Comment: PRR NEPTALI 07/07/18 gender suprise Spouse Nicholas History Date of Admission: 07/07/18 Final NEPTALI: 07/07/18 Gestational age: 40 Weeks and 1 Days History of this : This is a 27 year-old, at 40 weeks gestational age present swith clear ROM 9:30 am 07/07/18. she denie sany vb and is having occasional ctx. she has had an uncomplicated Surgical History: Surgical History (Last Reviewed 07/03/18 @ 09:36 by Minnie Rivera) History of tonsillectomy Z98.890, Z90.89 Allergies Penicillins Allergy (Verified 07/07/18 12:39) Unknown Home Medications: Home Medications folic acid 800 mcg tablet 800 mcg PO QDAY 07/04/17 vitamin#30 30 mg iron-10 mg iron-folic acid 1 mg-omg3 capsule 1 cap PO DAILY cap 06/16/18 docusate sodium 100 mg capsule 100 mg PO DAILY 07/03/18 Ranitidine HCl [Zantac] 150 mg PO DAILY 07/07/18 Smoking Status: Never smoker Alcohol: None Number of Fetus(es): 1 Heart Tracin moderate variability reactive no decelerations category I tracing TOCO Analysis: irregular History Past Pregnancies: Past Pregnancies Delivery Date Name GA/Weeks Outcome Route Weight Infant Gender Labor Length Anesthesia Delivery Location Provider FOB Labs: Mom's Labs & Results 07/07/18 07/07/18 07/07/18 12:40 13:40 13:40 WBC 9.3 RBC 3.99 L Hgb 11.6 L Hct 36.0 L MCV 90.2 MCH 29.1 MCHC 32.2 RDW 13.5 RDW Differential 44.3 H Plt Count 266 MPV 9.9 Vag Amniotic Fld Detect POSITIVE H Blood Type O POSITIVE Antibody Screen NEGATIVE Course Did the patient receive Yes care? Labs Blood Type: O RH: POSITIVE RPR/VDRL/Syphilis Nonreactive Rubella status Immune HbSAg Negative Date Done: 11/19/17 Chlamydia Negative Gonorrhea Negative HIV/AIDS Non-Reactive Group B Strep: Positive Current Obstetrical History Gestational Diabetes No Incompetent Cervix No Infertility No IUGR No Macrosomia No Hypertension/Pre-eclampsia No Placenta Previa/Abruption No PTL/PROM No Uterine anomaly No Oligohydramnios No Polyhydramnios No Multiple gestation No Past Medical History Asthma No Diabetes No Hypertension No Heart disease No Mitral valve prolapse No Neurologic/Seizure disorder/ No Migraines Kidney disease No Liver disease No Varicosities No Clotting disorders/Hx of DVT No Thyroid Dysfunction No Other medical diseases No Psychiatric disorders No Major trauma No Abnormal PAP smear No Sleep apnea No Mammogram in the last 2 years No Social History Marital Status: Alleged father Nicholas Colon Hx Smoking No Smoking Status Never smoker How long have you used N/A substances (years)? What date/time did you last N/A use any of the above? Have you had any previous N/A inpatient or outpatient treatment Expected Delivery Method: Spontaneous Vaginal Review of Systems Constitutional: Denies: Fever, Malaise Eyes: Denies: Blurred vision, Vision Change HEENT: Denies: Head Aches, Visual Changes Cardiovascular: Denies: Chest Pain, Palpitations Respiratory: Denies: Cough, Shortness of Breath, Wheezing Gastrointestinal: Denies: Abdominal Pain, Diarrhea, Nausea, Vomiting Genitourinary: Denies: Dysuria, Hematuria Musculoskeletal: Denies: Joint Pain, Muscle pain Skin: Denies: Lesions, Rash Neurological: Denies: Blurred vision, Focal weakness, Headaches Psychiatric: Denies: Anxiety, Depression Endocrine: Denies: Heat/ Cold Intolerance Hematologic/ Lymphatic: Denies: Easy Bruising, Easy Bleeding Physical Exam General: Alert, Cooperative, No apparent distress HEENT: Atraumatic, Normocephalic. Negative for: Thyromegaly, Lymphadenopathy Cardiovascular: Regular rate Lungs: Normal air movement Abdomen: Soft, Non Tender, Gravid Neurological: Deep Tendon Reflexes 2+/4 and Symmetrical, Neuro grossly intact. Negative for: Clonus METAL RECLAMATION KETTLE TENDER: Normal external genitalia. Negative for: Vulvar lesions Estimated gestational size: Appropriate for gestational size Presentation: Cephalic Assessment/Plan All Active Problems (Last Reviewed 07/03/18 @ 09:36 by Minnie Rivera) PROM (premature rupture of membranes) (Acute) Gastroenteritis (Acute) GBS (group B Streptococcus carrier), +RV culture, currently (Acute) UTI (urinary tract infection) during (Acute) (Acute) Supervision of normal first (Acute) This is a 27 year-old, , at 40 weeks gestational age presents PROM Patient presents PROM- recommend cytotec and then plan expectant management for , pitocin PRN if needed]. Pain management: minimal intervention. GBS positive plan IV clindamycin due to sensitivities. Management of any complications: none I have reviewed the [facility] and made any clinically relevant updates.
--- NOTE | 2018-07-08 08:09 | PCM.OB.VAG ---
- Problem List (1) PROM (premature rupture of membranes) Status: Acute (2) GBS (group B Streptococcus carrier), +RV culture, currently Status: Acute Comment: treat in labor with clindamycin (3) UTI (urinary tract infection) during Status: Acute Qualifiers: Comment: Repeat culture-neg (4) Status: Acute Qualifiers: Comment: genetic, carrier, NTD screening declined. normal anatomy scan. (5) Supervision of normal first Status: Acute Qualifiers: Comment: PRR NEPTALI 07/07/18 gender suprise Spouse Nicholas Vaginal Delivery Maternal Presentation: Spontaneous Rupture of Membranes prom with induction of labor with cytotec Method of Induction: Cytotec Medical Reason for Induction: Premature Rupture of Membranes Amniotic Membrane Rupture Type: Spontaneous at home Amniotic Fluid Description: Clear Final NEPTALI: 07/07/18 Gestational age: 40 Weeks and 1 Days Date of Procedure: 07/08/18 Pre-Operative Diagnosis: prom Post-Operative Diagnosis: prom Surgery/ Procedure Performed: Spontaneous Vaginal Delivery Type of Anesthesia: None Description of Procedure: Patient began pushing and delivered the head in the OREN presentation. The head was delivered atraumatically . The anterior and posterior shoulders delivered without complication followed by the rest of the infant and the infant was placed on the maternal abdomen. Delayed cord clamping was employed for approximately 60 seconds. Cord was clamped and cut and gentle traction was applied to the cord and the placenta delivered spontaneously immediately following it was noted to be intact with three-vessel cord. The perineum and vagina were inspected and noted to have no laceration. mild uterine atony was noted and bimanual massage and methergine were given. EBL was 500 cc. Patient and tolerated delivery well. Presentation: OREN Placental Delivery Description: Spontaneous Placenta Disposition: [facility] Cord Vessel Description: 3 Vessels Cord Entanglement: None Estimated Blood Loss: 500 Infant A gender: Female Episiotomy Description: None Laceration: None Medications given after delivery: IV Pitocin, IM Methergin Complications: - - mild uterine atony
[2018-07-08] MEDS: Oxytocin 30 units/NS 500 ml 30 UNITS/500 ML IV.SOLN 167 UNITS IV (08:10)
[2018-07-08] MEDS: Acetaminophen 325 MG Tablet PO (08:10)
[2018-07-08] MEDS: Naproxen 250 MG Tablet PO (12:15)
[2018-07-08 14:00] VITALS: BP 119/74; PULSE 85; RESP 16; TEMP 36.2
[2018-07-08 16:00] VITALS: BP 119/74; PULSE 85; RESP 16; TEMP 36.6; O2SAT 95
[2018-07-08] MEDS: Acetaminophen 500 MG Tablet 1000 MG PO (18:23)
--- NOTE | 2018-07-08 19:40 | NURSING ---
pt has been nursing her baby well today, at this time baby is not nursing. pt reassured that an attempt is fine and i would let know baby did not nurse at this feed, made aware.
[2018-07-08 20:35] VITALS: BP 124/71; PULSE 91; RESP 16; TEMP 36.5; O2SAT 97
[2018-07-08 23:50] VITALS: BP 119/73; PULSE 87; RESP 16; TEMP 36.5; O2SAT 100
[2018-07-09 05:13] VITALS: BP 117/79; PULSE 84; RESP 16; TEMP 36.6; O2SAT 100
--- NOTE | 2018-07-09 07:45 | PCM.PN.OB ---
Patient Problems: Active and Suspected Problems (Last Reviewed 07/03/18 @ 09:36 by Minnie Rivera) PROM (premature rupture of membranes) (Acute) Subjective: Doing well. No CP, SOB. - Physical Exam General: Alert, Oriented x3 Abdomen: Soft, Non Tender, Non-Distended, - - FF below U Vital Signs Temp Pulse Resp BP Pulse Ox 98 F 84 16 117/79 100 07/09/18 05:13 07/09/18 05:13 07/09/18 05:13 07/09/18 05:13 07/09/18 05:13 Oxygen Delivery Method Room Air Weight: 206 lb 12.8 oz Body Mass Index (BMI) 29.7 Intake and Output for Last 24 Hours 07/07/18 07/08/18 07/09/18 23:59 23:59 23:59 Intake Total 990 / 990 Output Total 400 / 400 Balance 590 / 590 Medical Necessity - Tobacco Use Smoking Status: Never smoker Assessment/Plan All Active Problems (Last Reviewed 07/03/18 @ 09:36 by Minnie Rivera) PROM (premature rupture of membranes) (Acute) Gastroenteritis (Acute) GBS (group B Streptococcus carrier), +RV culture, currently (Acute) UTI (urinary tract infection) during (Acute) (Acute) Supervision of normal first (Acute) PPD#1: Routine care. .
[2018-07-09 08:05] VITALS: BP 112/69; PULSE 83; RESP 16; TEMP 36.5
[2018-07-09] MEDS: Senna/Docusate Sodium 1 Tablet PO (09:31)
[2018-07-09 14:25] VITALS: BP 132/82; PULSE 75; RESP 16; TEMP 36.5
[2018-07-09 20:20] VITALS: BP 125/73; PULSE 83; RESP 18; TEMP 36.7; O2SAT 97
[2018-07-10 02:30] VITALS: BP 117/83; PULSE 82; RESP 16; TEMP 36.4
--- NOTE | 2018-07-10 07:31 | PCM.PN.OB ---
Patient Problems: Active and Suspected Problems (Last Reviewed 07/03/18 @ 09:36 by Minnie Rivera) PROM (premature rupture of membranes) (Acute) Subjective: No CP, SOB. Doing well. Plans home today - Physical Exam General: Alert, Oriented x3 Abdomen: Soft, Non Tender, - - FF below U Vital Signs Temp Pulse Resp BP Pulse Ox 97.5 F L 82 16 117/83 H 97 07/10/18 02:30 07/10/18 02:30 07/10/18 02:30 07/10/18 02:30 07/09/18 20:20 Oxygen Delivery Method Room Air Weight: 206 lb 12.8 oz Body Mass Index (BMI) 29.7 Medical Necessity - Tobacco Use Smoking Status: Never smoker Assessment/Plan All Active Problems (Last Reviewed 07/03/18 @ 09:36 by Minnie Rivera) PROM (premature rupture of membranes) (Acute) Gastroenteritis (Acute) GBS (group B Streptococcus carrier), +RV culture, currently (Acute) UTI (urinary tract infection) during (Acute) (Acute) Supervision of normal first (Acute) PPD#2: Routine care. . Home today
--- NOTE | 2018-07-10 07:33 | DCINST_ITS ---
Additional Instructions: If you experience any of the following, contact your healthcare provider. * Bleeding that soaks a pad every hour for 2 hours * Fever 100.4 or higher * Unrelieved incision or abdominal pain * Swelling, redness, discharge or bleeding from your incision or episiotomy site * Your incision begins to separate * Problems urinating (including inability to urinate or burning while urinating). * Visual changes * Severe headache * Flu-like symptoms * Pain or redness in one of both of your breasts * Pain, warmth, tenderness or swelling in your legs, especially the calf area * Frequent nausea and vomiting * Symptoms of depression or anxiety If you experience any of the following, call 911 or go to the nearest Emergency Room. * Chest pain * Problems breathing * Seizure activity * Partial or complete paralysis of a body part, slurred speech, weakness or drooping of the face, or a sudden inability to walk or hold your balance Allergies/Adverse Reactions: Allergies Penicillins Allergy (Verified 07/07/18 12:39) Unknown Medications to take at Discharge folic acid 800 mcg tablet 800 mcg PO QDAY 07/04/17 vitamin#30 30 mg iron-10 mg iron-folic acid 1 mg-omg3 capsule 1 cap PO DAILY cap 06/16/18 docusate sodium 100 mg capsule 100 mg PO DAILY 07/03/18 Ranitidine HCl [Zantac] 150 mg PO DAILY 07/07/18 Primary Care Physician: Bebeto Grover MD [Primary Care Provider] - Test Results: Test results from this visit will be discussed in further detail at your follow- up appointment, if applicable.
--- NOTE | 2018-07-10 07:33 | PCM.DCVAG ---
Additional Instructions: If you experience any of the following, contact your healthcare provider. Bleeding that soaks a pad every hour for 2 hours Fever 100.4 or higher Unrelieved incision or abdominal pain Swelling, redness, discharge or bleeding from your incision or episiotomy site Your incision begins to separate Problems urinating (including inability to urinate or burning while urinating). Visual changes Severe headache Flu-like symptoms Pain or redness in one of both of your breasts Pain, warmth, tenderness or swelling in your legs, especially the calf area Frequent nausea and vomiting Symptoms of depression or anxiety If you experience any of the following, call 911 or go to the nearest Emergency Room. Chest pain Problems breathing Seizure activity Partial or complete paralysis of a body part, slurred speech, weakness or drooping of the face, or a sudden inability to walk or hold your balance Allergies/Adverse Reactions: Allergies Penicillins Allergy (Verified 07/07/18 12:39) Unknown Medications to take at Discharge folic acid 800 mcg tablet 800 mcg PO QDAY 07/04/17 vitamin#30 30 mg iron-10 mg iron-folic acid 1 mg-omg3 capsule 1 cap PO DAILY cap 06/16/18 docusate sodium 100 mg capsule 100 mg PO DAILY 07/03/18 Ranitidine HCl [Zantac] 150 mg PO DAILY 07/07/18 Primary Care Physician: Bebeto Grover MD [Primary Care Provider] - Test Results: Test results from this visit will be discussed in further detail at your follow-up appointment, if applicable.
[2018-07-10 08:35] VITALS: BP 126/70; PULSE 82; RESP 18; TEMP 36.5; O2SAT 96
[2018-07-10] MEDS: Senna/Docusate Sodium 1 Tablet PO (10:13)
[2018-07-10 14:36] VITALS: BP 120/63; PULSE 88; RESP 18; TEMP 36.4
== END 2018-07-10 14:50 | disposition home or self-care (01) | DRG 807 ==
LOC: WPOUT 13:10
PROVIDERS: Admitting Provider Obstetrics & Gynecology; Family Provider Family Medicine; PCP Family Medicine; Referring Provider Obstetrics & Gynecology; Visit Provider Obstetrics & Gynecology
DX: O42.92 Full-term premature rupture of membranes, unspecified as to length of time between rupture and onset of labor (principal); Z37.0 Single live birth; O62.2 Other uterine inertia; Z3A.40 40 weeks gestation of pregnancy; Z22.330 Carrier of Group B streptococcus
CPT/HCPCS: 59025; 59050; 84112; 85027; 86850; 86900; 99218; J7120; A4216; G0378

== ENCOUNTER → 2018-09-18 10:47 | Outpatient (CLI) | payer OTHER, SELFPAY ==
[2018-08-18 14:22] VITALS: BMI 29.7
--- NOTE | 2018-09-18 10:50 | MRI_ITS ---
STUDY: MRI LEFT KNEE REASON FOR EXAM: [place] a [employer] playing softball 1 week ago, knee pain. TECHNIQUE: Standardized fat and water weighted pulse sequences were obtained in all 3 orthogonal planes. COMPARISON: None. FINDINGS: There is a bucket-handle tear of the medial meniscus with a displaced fragment in the intercondylar notch (proton-density sagittal images 20, 21). Normal hyaline cartilage of the medial femorotibial compartment. Normal medial femoral condyle and tibial plateau. Normal medial collateral ligamentous complex (MCL). Normal distal semimembranosus, gracilis and semitendinosus tendons. Normal lateral meniscus. Normal hyaline cartilage of the lateral femorotibial compartment. Normal lateral femoral condyle and tibial plateau. Normal proximal tibiofibular articulation. Normal lateral collateral (fibular) ligament. Normal popliteus tendon. Normal biceps femoris tendon. There is a complete tear of the anterior cruciate ligament, possibly a chronic tear (series 8 image 9). Normal posterior cruciate ligament (PCL). Normal congruent patellofemoral articulation. Normal hyaline cartilage of the patellofemoral compartment. Normal medial and lateral patellar retinaculum. Normal quadriceps tendon. Normal patellar tendon. Normal Hoffa's fat pad. There is a bmoxe-no-nlskwyty sized joint effusion. There is a thin medial patellar plica. The soft tissues are unremarkable. There is a fibroxanthoma in the medial aspect of the distal femoral diaphysis (T2 coronal image 16) measuring approximately 1.6 cm in length. MRI/Lower Ext Joint Only (Routine) IMPRESSION: Displaced bucket-handle tear of the medial meniscus. Anterior cruciate ligament tear. Joint effusion. 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 Electronically Signed: Sadiq Tomlinson MD at 11:50 EDT Tel , Service support ,
== END ==
PROVIDERS: Family Provider Family Medicine; PCP Family Medicine; Referring Provider Specialist; Visit Provider Specialist
DX: S83.8X2A Sprain of other specified parts of left knee, initial encounter (principal)
CPT/HCPCS: 73721

== ENCOUNTER 2018-10-01 07:55 | Day surgery (SDC) | payer OTHER, SELFPAY ==
[2018-08-18 14:22] VITALS: BMI 29.7
[2018-10-01 08:17] VITALS: BP 120/81; PULSE 76; RESP 18; TEMP 36.7; O2SAT 98; BMI 26.4
[2018-10-01] MEDS: Vancomycin IV 1,000 MG/200 ML BAG 200 MG IV (08:34)
[2018-10-01 08:41] LABS: Internal QC Validated? YES +Cl - CLEAR BKGD; Pregnancy, Urine Negative Negative
[2018-10-01] MEDS: Bupiv/Epi 0.5% Mpf 30 ML Vial (12:18)
[2018-10-01] MEDS: Bupivacaine Mpf 0.5% 30 ML VIAL (13:20)
[2018-10-01] MEDS: Morphine 4 MG/ML Syringe (13:21)
--- NOTE | 2018-10-01 13:45 | DCINST_ITS ---
Discharge Diet: No Restrictions Discharge Activity: - - Ice and elevate next 72 hours .keep dressing on clean and dry for 48 hours then may remove begin showering daily but do not submerge in tub or pool. After shower may apply Band-Aids . Encourage knee range of motion full extension to 90 degrees flexion not past for 6 wks. toe touch weight bearing 6 wks. , use crutches. No strenuous activity. When not ambulating keep iced and elevated next 72 hours. Allergies/Adverse Reactions: Allergies Penicillins Allergy (Verified 10/01/18 08:13) Unknown was given the ATB when she had mono and she got hives. Medications to take at Discharge vitamin#30 30 mg iron-10 mg iron-folic acid 1 mg-omg3 capsule 1 cap PO DAILY cap 06/16/18 Folic Acid 1 mg PO DAILY 09/26/18 [place]-3 Fatty Acids/Fish Oil [Fish Oil 1,000 mg Capsule] 1 each PO DAILY 09/26/18 Oxycodone HCl/Acetaminophen [Percocet 5/325] 1 - 2 tablet PO Q4H PRN PRN 5 Days #50 tablet 10/01/18 The following prescriptions were given: Oxycodone HCl/Acetaminophen [Percocet 5/325] 1 - 2 tablet PO Q4H PRN PRN 5 Days #50 tablet PRN Reason: Pain Primary Care Physician: Bebeto Grover MD [Primary Care Provider] - Test Results: Test results from this visit will be discussed in further detail at your follow- up appointment, if applicable.
[2018-10-01 13:46] VITALS: BP 120/81; BP 132/90; PULSE 89; RESP 16; TEMP 36.4; O2SAT 94
--- NOTE | 2018-10-01 13:53 | OP.PCM_ITS ---
Report of Operation Date of Procedure: 10/01/18 Description of Surgical Findings:: Preoperative diagnosis: Left knee ACL rupture bucket-handle medial meniscus tear Postoperative diagnosis: Same Procedure: Arthroscopic medial meniscus repair with [employer]hew 360 FasT-Fix suture anchors and ACL reconstruction with 8.5 mm folded diameter tibialis anterior allograft Anesthesia: General plus femoral block EBL: 5 Complications: None Condition: Stable to PACU Indication for procedure: This is a 27-year-old female patient who had sustained injury to her left knee who had MRI with evidence of ACL rupture and meniscus tear she did wish to proceed with an elective surgery. risk benefits and alternatives were reviewed including risk of bleeding infection nerve, artery, bone, tissue damage, blood clot need for further surgery and continued pain posttraumatic arthritis postoperative restrictions. Procedure: Patient was met in the preoperative holding area. The operative extremity was identified by both patient and physician and was marked. Patient was met by anesthesia and brought back to the operating room on a wheeled cart transferred to the operating table in the supine position. Anesthesia was started. A well-padded tourniquet was placed to the left upper thigh and the left lower extremity leg hugo was used. Contralateral extremity was well- padded and the end of the bed was flexed to 90 degrees. She was prepped and draped in the usual sterile fashion and a timeout was called to ensure the proper patient procedure and extremity are being contemplated. Tibialis anterior graft was pared on the back table with a fiber loop whipstitch is on both ends it was sized as an 8.5 mm diameter 0.5% Marcaine with epinephrine was injected into the planned anterior medial and anterior lateral portal sites stab incision was made into the anterior lateral portal hugging the patellar tendon the arthroscope was then inserted into the the intercondylar notch and inflow and outflow tubes were attached. The medial portal was established with the placement of an 18-gauge spinal needle followed by stab incision. The medial meniscus was evaluated and did have a bucket-handle tear. The meniscus was felt to be a good candidate for repair and a shaver was used to debride loose meniscal pieces and to prepare the meniscal bed for repair a rasp was also used on the meniscal bed. The use of a hook probe the meniscus was reduced into position with the use of a 360 FasT-Fix curved anchor mattress pairs were performed this provided excellent fixation of the meniscus with there is no further instability the lateral compartment was entered and was free of cartilage or meniscal pathology. The ACL was torn and was debrided with a shaver the footprint was prepared with an ArthroCare. With the use of a femoral guide set at 105 degrees he was positioned in the appropriate low posterior footprint of the ACL using a flip cutter the drill bit was entered through the guide into the joint the metal cannula was inserted 7 mm into the lateral cortex and with the use of the flip border measurer and cutter a retrograde fashion the femoral tunnel was created it was measured is 30 mm . Fiber stick was then inserted and was retrieved through the arthroscopic portal and hemostatic to itself. The attention was turned towards the tibia and a 55 degree tibial guide was used and a flip cutter was used to complete the tunnel for the tibia position was just anterior to the PCL following this a guide pin was inserted through the tunnel and the lateral cortex was overreamed with a 8.5 mm fluted reamer. The FiberWire was then retrieved through the tunnel and the graft and ACL button were then passed and under direct visualization were seen exiting the lateral cortex of the femoral tunnel but was flipped and the graft was advanced 5 mm in the femoral socket which was marked on the graft. The knee was then cycled through range of motion and a nitinol wire was used to placed anteriorly to the graft and a 9 mm composite interference screw was then inserted over the nitinol wire with excellent purchase the major of the tension was made with the details of the femoral side the knee was thoroughly irrigated quarter percent Marcaine plain and morphine was injected intra-articularly suture portals were closed w ith 3-0 Monocryl buried knots a 3-0 Vicryl was used on the tibial tunnel incision followed by 3-0 Monocryl benzoin and Steri-Strips were applied Xeroform 4 x 4 ABD web roll and an Mario wrap from the foot to the groin as well as a knee immobilizer were placed patient tolerated the procedure well all counts were correct.
[2018-10-01 14:00] VITALS: BP 120/81; BP 132/93; PULSE 85; RESP 16; O2SAT 98
[2018-10-01 14:15] VITALS: BP 120/81; BP 121/88; PULSE 85; RESP 16; O2SAT 97
[2018-10-01 14:32] VITALS: BP 120/81; BP 126/84; PULSE 73; RESP 16; TEMP 36.6; O2SAT 93
[2018-10-01] MEDS: Acetaminophen 325 MG Tablet PO (15:02)
[2018-10-01] MEDS: oxyCODONE 5 MG Tablet PO (15:02)
[2018-10-01 16:39] VITALS: BP 120/81; BP 142/74; PULSE 74; RESP 18; TEMP 36.5; O2SAT 98
== END 2018-10-01 16:40 | disposition home or self-care (01) ==
LOC: SDC 07:56 → AC 07:57
PROVIDERS: Anesthesiology; Family Provider Family Medicine; PCP Family Medicine; Referring Provider Orthopaedic Surgery; Visit Provider Orthopaedic Surgery
PROC: (CPT 29882; principal; 2018-10-01 09:15)
DX: S83.242A Other tear of medial meniscus, current injury, left knee, initial encounter (principal); S83.512A Sprain of anterior cruciate ligament of left knee, initial encounter
CPT/HCPCS: 01400; 29882; 29888; 81025; C1713; J7120; J2405

== ENCOUNTER 2019-01-27 08:30 | Outpatient (RCR) | payer OTHER, SELFPAY ==
[2018-10-13 11:17] VITALS: BMI 26.4
--- NOTE | 2018-10-21 09:36 | HP.PTEVAL ---
Patient's Visit Information JED LAGUNAS is a 27 year old F referred to Physical Therapy by Juan Varma DO with a diagnosis of L knee ACL reconsturction and med meniscal repair. Date of Evaluation: 10/21/18 Physical Therapist: Venancio Park PT, ATC - Visit Plan Frequency: 2-3x /Week Duration: 4-6 Weeks Plan: L knee ACL protocal. TTWB'ing for 6 weeks. CP for pain - Subjective Findings: DOS: 10/01/18. Pt had a medial meniscal repair and an ACL reconstruction performed on that date. 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 Pt reports she is usually a very active person, so this is really limiting to her lifestyle at this time. Pt reports she also had a baby three months ago so she is very limited with caring for her new baby as well. No PMHx of L knee complications previously. Pt reports she really hasn't noticed any improvements at this time. No tingling or numbness in L LE. Sleep difficulty secondary to pain without the use of meds at this time. 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 0/10 at rest, 3/10 after being up for a while. Pt is currently limited to TTWB'ing status - Pain L knee ACL and Med meniscus Pain Intensity (Out of 10): 0 Pain Intensity Range: 3 - Objective Neuro: B = LE sensation is WNL to light touch. B achilles reflex= 2/3. Girth at joint line: L knee 48 cm, R knee 45 cm. ROM: R knee 0-135; L knee 0-8-95 degrees. MMT: R LE 5/5 throughout. L knee 3-/5. Observation: Incisions healing well at this time. No signs of infection - Goals Goal 1:: Decrease L knee pain x 50% to aid with sleep Goal Time Frame: 4-6 Weeks Goal 2:: Increase L knee ROM x 30 degrees to aid with restoring normalized gait pattern Goal Time Frame: 4-6 Weeks Goal 3:: Increase L knee strength x 1 grade to aid with RTS without limitation. Goal Time Frame: 4-6 Weeks Goal 4:: I with HEP Goal Time Frame: 4-6 Weeks - Rehabilitation Potential Physical Therapy Diagnosis: L knee pain, swelling, and limited ROM secondary to L knee ACL and medial meniscal repair Rehabilitation Potential: Good - Anticipated Interventions Patient/Client Instruction: Educate patient on: Condition, Plan of Care For the Purpose of:: To improve self management Therapeutic Exercise to Include: Strength training, Endurance training, Balance training, Flexibilty training, Gait and locomotor training, Active ROM, Dynamic Lumbar Stabilization For the Purpose of:: To decrease pain, To increase ROM, To improve muscle performance and motor function Cryotherapy (ice pack, ice massage): Yes For the Purpose of:: To decrease pain Thank you for the opportunity to evaluate your patient. For Medicare and Medicare HMO plans, please review the plan of care and approve it. It will need to be FAXED BACK to us at [phone] for Medicare purposes. For Medicare only, by signing this I certify the plan of care. Please let me know if there are questions or concerns regarding this plan of care. Physician Signature: Date:
--- NOTE | 2019-01-27 09:17 | HP.PTDCSUM ---
HP - PT D/C Summary It has been my pleasure to treat JED LAGUNAS under orders from Juan Varma DO, for the diagnosis of L knee ACL reconsturction and med meniscal repair for a total of 22 visit(s). Discharge Date: Please see the following information for a summary of their discharge status. - Subjective Subjective: No pain this date - Pain L knee ACL and Med meniscus Pain Intensity (Out of 10): 0 - Overall Improvement % Improvement: 85 - Objective Objective/Function: L knee pain 0/10 currently. L knee ROM: 0-135 degrees. L knee MMT: flex= 5/5, ext= 4+/5. L knee girth at joint line: 37 cm. Pt is I with HEP. Rx goals achieved - Goals Goal 1:: Decrease L knee pain x 50% to aid with sleep Goal Progress: Goal Met Goal 2:: Increase L knee ROM x 30 degrees to aid with restoring normalized gait pattern Goal Progress: Goal Met Goal 3:: Increase L knee strength x 1 grade to aid with RTS without limitation. Goal Progress: Goal Met Goal 4:: I with HEP Goal Progress: Goal Met - Plan Plan: Discharge - D/C Information If there are questions or concerns regarding this patient's physical therapy, please feel free to call me at [phone]. Thank you for the referral of this patient. Sincerely, Venancio Park, PT, ATC
== END 2019-01-27 10:26 | disposition home or self-care (01) ==
LOC: PT 08:30
PROVIDERS: Family Provider Family Medicine; PCP Family Medicine; Referring Provider Orthopaedic Surgery; Visit Provider Orthopaedic Surgery
DX: Z98.890 Other specified postprocedural states (principal)
CPT/HCPCS: 97016; 97110; 97116; 97161; 97530

== ENCOUNTER → 2019-04-13 11:56 | Outpatient (CLI) | payer OTHER, SELFPAY ==
[2019-04-13 11:36] VITALS: BMI 26.4
[2019-04-13 12:50] LABS: Absolute Lymphocyte Count 2.03 X10^3/uL (0.83-4.51); Absolute Neutrophil Count 6.1 X10^3/uL (2.0-7.7); Basophil# 0.05 X10^3/uL; Basophil% 0.6 % (0-1); Eosinophil# 0.07 X10^3/uL; Eosinophils% 0.8 % (0-5); Hematocrit 39.6 % (37-47); Hemoglobin 13.1 g/dL (12.0-15.0); Lymphocyte # 2.03 X10^3/ul (4.0); Lymphocyte % 22.8 % (19-41); Mean Corp Hgb Conc 33.1 g/dL (32-36); Mean Corpuscular Hgb 28.7 pg (27.0-32.0); Mean Corpuscular Volume 86.8 fL (81-99); Mean Platelet Vol. 9.7 fl (6.2-12.0); Monocyte# 0.67 X10^3/uL; Monocyte% 7.5 % (0-10); NRBC Flagged by Analyzer 0 % (0-5); Neutrophil # 6.07 X10^3/uL (2.7-7.7); Platelet Count 257 K/mm3 (150-450); RBC Distribution Width CV 13.4 % (11.6-14.6); RBC Distribution Width SD 41.7 fl (35.1-43.9); Red Blood Count 4.56 M/mm3 (4.2-5.4); White Blood Count 8.9 K/mm3 (4.4-11.0)
[2019-04-13 14:05] LABS: HIV - WCH Non-Reactive (Nonreactive); Rubella IgG 107.7 IU/mL
[2019-04-13 20:43] LABS: Chlamydia Trachomatis by PCR Negative (Negative); Neisserai gonorrhoeae by PCR Negative (Negative); Probe Check PASS; Sample Adequacy Control PASS; Specimen Processing Control PASS
[2019-04-16 02:58] LABS: Rapid Plasmin Reagin (RPR) NONREACTIVE (NONREACTIVE)
== END ==
PROVIDERS: Family Provider Family Medicine; PCP Family Medicine; Referring Provider Nurse Practitioner Women's Health; Visit Provider Nurse Practitioner Women's Health
DX: Z34.80 Encounter for supervision of other normal pregnancy, unspecified trimester (principal)
CPT/HCPCS: 36415; 85025; 86592; 86703; 86762; 86850; 86900; 86901; 87086; 87491; 87591

== ENCOUNTER → 2019-04-17 15:57 | Outpatient (CLI) | payer OTHER, SELFPAY ==
[2019-04-13 11:36] VITALS: BMI 26.4
--- NOTE | 2019-04-17 15:59 | US_ITS ---
STUDY: FIRST TRIMESTER OBSTETRICAL ULTRASOUND REASON FOR EXAM: Female, 28 years old early LMP: Unknown TECHNIQUE: Transabdominal TECHNICAL QUALITY: Adequate. PRIOR ULTRASOUND: None. FINDINGS: There is visualization of a single gestational sac in a normal intrauterine position. The mean sac diameter (MSD) measures 4.2 cm, indicating an estimated gestational age (EGA) of 9 weeks, 6 days. The gestational sac shape is within normal limits. There is a visualized yolk sac. The yolk sac measures 3.6 mm. The placenta is non-visualized due to early . There is visualization of a live embryo. The crown-rump length (CRL) measures 3.4 cm, indicating an estimated gestational age (EGA) of 10 weeks, 3 days. There is demonstrated cardiac activity with a heart rate of 165 bpm. The estimated gestation age (EGA) by LMP is 10 weeks, 5 days. The estimated date of delivery (NEPTALI) by LMP is 11/08/2019. The estimated gestation age (EGA) by US is 10 weeks, 1 days. The estimated date of delivery (NEPTALI) by US is 11/12/2019. The uterus measures 15.3 x 9.5 x 7.6 cm. There is no demonstrated uterine fibroid. The cervix is closed. The right ovary is nonvisualized. The left ovary measures 3.0 x 2.9 x 2.1 cm. There is no left ovarian cyst. There is no visualized left adnexal mass or complex lesion. There is no fluid in the cul de sac. US/Init OB < 14Wks US IMPRESSION: Single live intrauterine correlating to gestational age of 10 weeks and 1 day. Electronically Signed: Geoff Arguello MD ([place]) at 16:24 EDT , Service support ,
== END ==
PROVIDERS: Family Provider Family Medicine; PCP Family Medicine; Referring Provider Nurse Practitioner Women's Health; Visit Provider Nurse Practitioner Women's Health
DX: Z34.80 Encounter for supervision of other normal pregnancy, unspecified trimester (principal)
CPT/HCPCS: 76801

== ENCOUNTER → 2019-06-29 12:20 | Outpatient (CLI) | payer OTHER, SELFPAY ==
[2019-06-17 15:25] VITALS: BMI 26.4
--- NOTE | 2019-06-29 12:20 | US_ITS ---
STUDY: SECOND AND THIRD TRIMESTER OBSTETRICAL ULTRASOUND REASON FOR EXAM: Female, 28 years old anatomy LMP: 02/01/2019 TECHNIQUE: Transabdominal TECHNICAL QUALITY: Adequate. PRIOR ULTRASOUND: 04/17/2019. FINDINGS: There is a single intrauterine fetus. The fetus is in a breech presentation. There is demonstrated cardiac activity with a heart rate of 122 bpm. There is a normal amniotic fluid volume. The largest amniotic fluid pocket measures 9.4 cm. The placenta is anterior in location and is not low lying. There are Grade 0 placental changes. The cervix measures 3.5 cm in length. The bilateral adnexal regions are normal. BIOMETRY: BPD: 4.5: 19 weeks, 5 days HC: 18.4: 20 weeks, 5 days AC: 16.2: 21 weeks, 2 days FL: 3.3: 20 weeks, 2 days CI: FL/BPD: FL/HC: FL/AC: HC/AC: age by current US: 20 weeks, 4 days. NEPTALI by current US: 11/12/2019. Estimated weight: 379 grams, +/- 26 grams, 22 %. age by prior US: 20 weeks, 4 days. NEPTALI by prior US: 11/12/2019. Age by LMP: 21 weeks, 1 days. NEPTALI by LMP: 11/08/2019. ANATOMY: Gender: Indeterminant Cranium: Normal lateral ventricles. Normal choroid plexus. Normal cerebellum. Normal cisterna magna. Normal face, nose and lips. Chest: Normal 4-chamber heart. Abdomen/Pelvis: Normal diaphragm. Normal stomach. Normal abdominal wall. Normal cord insertion. Normal 3 vessel cord. Normal kidneys. Normal bladder. Spine: Normal cervical spine. Normal thoracic spine. Normal lumbar spine. Normal sacrum. Extremities: Normal bilateral upper extremities. Normal bilateral lower extremities. US/OB Anatomy Scan IMPRESSION: Single live fetus in a breech presentation. No demonstrated anatomic abnormality. Placenta is grade 0 and is not low-lying. Cervix is closed. age by current US: 20 weeks, 4 days. NEPTALI by current US: 11/12/2019. Estimated weight: 379 grams, +/- 26 grams, 22 %. Electronically Signed: Prabhjot Howard MD at 22:27 EST , Service support ,
== END ==
PROVIDERS: Family Provider Family Medicine; PCP Family Medicine; Referring Provider Obstetrics & Gynecology; Visit Provider Obstetrics & Gynecology
DX: Z34.90 Encounter for supervision of normal pregnancy, unspecified, unspecified trimester (principal)
CPT/HCPCS: 76805

== ENCOUNTER → 2019-08-27 10:22 | Outpatient (CLI) | payer OTHER, SELFPAY ==
[2019-08-27 09:47] VITALS: BMI 26.4
[2019-08-27 10:56] LABS: Absolute Lymphocyte Count 1.59 X10^3/uL (0.83-4.51); Absolute Neutrophil Count 4.6 X10^3/uL (2.0-7.7); Basophil# 0.03 X10^3/uL; Basophil% 0.4 % (0-1); Eosinophil# 0.06 X10^3/uL; Eosinophils% 0.9 % (0-5); Hematocrit 38.1 % (37-47); Hemoglobin 12.4 g/dL (12.0-15.0); Lymphocyte # 1.59 X10^3/ul (4.0); Lymphocyte % 22.6 % (19-41); Mean Corp Hgb Conc 32.5 g/dL (32-36); Mean Corpuscular Hgb 29.5 pg (27.0-32.0); Mean Corpuscular Volume 90.7 fL (81-99); Mean Platelet Vol. 10.1 fl (6.2-12.0); Monocyte# 0.71 X10^3/uL; Monocyte% 10.1 % (0-10); NRBC Flagged by Analyzer 0 % (0-5); Neutrophil # 4.58 X10^3/uL (2.7-7.7); Neutrophil % 65.1 % (47-70); Platelet Count 225 K/mm3 (150-450); RBC Distribution Width CV 13.4 % (11.6-14.6); RBC Distribution Width SD 44.7 fl (35.1-43.9)
[2019-08-27 11:13] LABS: Glucose Challenge Gest 1H 50g 146 mg/dL (70-140)
[2019-08-27 11:40] LABS: Hepatitis B Surface Antigen Non-Reactive (Nonreactive)
== END ==
PROVIDERS: PCP Family Medicine; Referring Provider Obstetrics & Gynecology; Visit Provider Obstetrics & Gynecology
DX: Z34.80 Encounter for supervision of other normal pregnancy, unspecified trimester (principal); M54.30 Sciatica, unspecified side
CPT/HCPCS: 36415; 82950; 85025; 87340

== ENCOUNTER → 2019-09-04 06:51 | Outpatient (CLI) | payer OTHER, SELFPAY ==
[2019-08-27 12:19] VITALS: BMI 26.4
[2019-09-04 07:22] LABS: Glucose GTT-Gestation. Fasting 84 mg/dL (<105)
[2019-09-04 08:24] LABS: Glucose GTT-Gestational 1 Hr 150 mg/dL (<190)
[2019-09-04 09:57] LABS: Glucose GTT-Gestational 2 Hr 104 mg/dL (<165)
[2019-09-04 11:26] LABS: Glucose GTT-Gestational 3 Hr 64 L (<145)
== END ==
PROVIDERS: PCP Family Medicine; Referring Provider Obstetrics & Gynecology; Visit Provider Obstetrics & Gynecology
DX: O99.810 Abnormal glucose complicating pregnancy (principal); Z3A.00 Weeks of gestation of pregnancy not specified
CPT/HCPCS: 36415; 82951; 82952

== ENCOUNTER 2019-09-07 11:10 | Outpatient (RCR) | payer OTHER, SELFPAY ==
[2019-08-27 12:19] VITALS: BMI 26.4
--- NOTE | 2019-09-14 15:04 | MASS.EVAL_ITS ---
Massage Therapy Evaluation: Initial Evaluation Date: 09/07/2019 SUBJECTIVE: Fabiana is a 28 year old female who was referred to the [facility] for a massotherapy evaluation by Dr. Campoverde with the diagnosis of low back pain. She presents today with the symptoms of pain, stiffness and tension in her low back and hips. Fabiana reports that this is due to her second . She also reports that at times she can not walk because of her back pain that causes sciatica. OBJECTIVE: Upon observation Fabiana has some posture issues with her head and shoulders forward from the neutral position in sitting and standing. After examination and palpation, I found Fabiana to have high muscle tension with tenderness and myofascial restrictions in her sub occipitals, levator scapulae, trapezius, rhomboids, scalenes, and thoracic paraspinals. Her QL?s, lumbar paraspinals, piriformis, glute medius and minimus all were very tight with fascial res trictions, tender points and trigger points. The first treatment consisted of a one hour massage to her full body with myofascial release, muscle stripping, trigger point compression techniques, and cervical manual traction. ASSESSMENT: I feel that Fabiana is a good candidate for massotherapy at this time. She had a favorable response to the first treatment with reduction in her muscle aches, pain and tension. PLAN: The plan of care was reviewed with the patient. The patient is to be seen on an as needed basis for a total of ten sessions with the recommendation of once every month for a one hour treatment.
--- NOTE | 2020-06-13 12:54 | DS.PCM_ITS ---
Massage Therapy Discharge Summary: Discharge Date: 06/13/2020 Fabiana was seen for a massotherapy evaluation on 09/07/2019 with the diagnosis of discomfort. She was treated with one session of massage therapy consisting of light to moderate pressure soft tissue techniques, myofascial release and trigger point compression to her cervical, thoracic, lower back, lower extremities and hips. At this time this patient is being discharged from our care at [facility] facility.
== END 2019-09-07 19:00 | disposition home or self-care (01) ==
LOC: MASS 11:10
PROVIDERS: PCP Family Medicine; Referring Provider Obstetrics & Gynecology; Visit Provider Obstetrics & Gynecology
DX: M54.40 Lumbago with sciatica, unspecified side (principal)
CPT/HCPCS: 97124

== ENCOUNTER → 2019-10-08 | Outpatient (CLI) | payer OTHER, SELFPAY ==
[2019-10-08 09:48] VITALS: BMI 26.4
== END | disposition home or self-care (01) ==
LOC: LABSPEC 15:22
PROVIDERS: PCP Family Medicine; Referring Provider Obstetrics & Gynecology; Visit Provider Obstetrics & Gynecology
DX: Z34.93 Encounter for supervision of normal pregnancy, unspecified, third trimester (principal); Z3A.35 35 weeks gestation of pregnancy
CPT/HCPCS: 87081

== ENCOUNTER 2019-11-11 13:40 | Inpatient (IN) | payer OTHER, SELFPAY ==
[2019-11-11] VITALS (19 sets, daily range): BP systolic 120–156; BP diastolic 64–92; PULSE 69–94; TEMP 36.3–36.5; O2SAT 82–98; BMI 26.4; BMI 30.2
[2019-11-11 13:20] LABS: ROM Internal Control Test YES-OK TO RESULT pt. (Internal QC)
[2019-11-11 13:21] LABS: ROM Patient Test POSITIVE (Negative)
[2019-11-11] MEDS: Lactated Ringers 1,000 ML 50 ML IV (14:00)
[2019-11-11 14:38] LABS: Absolute Neutrophil Count 7.6 X10^3/uL (2.0-7.7); Basophil# 0.05 X10^3/uL; Basophil% 0.4 % (0-1); Eosinophil# 0.06 X10^3/uL; Eosinophils% 0.5 % (0-5); Hematocrit 36.6 % (37-47); Hemoglobin 11.9 g/dL (12.0-15.0); Lymphocyte % 22.5 % (19-41); Mean Corp Hgb Conc 32.5 g/dL (32-36); Mean Corpuscular Hgb 29.5 pg (27.0-32.0); Mean Corpuscular Volume 90.6 fL (81-99); Mean Platelet Vol. 11.1 fl (6.2-12.0); Monocyte# 0.89 X10^3/uL; NRBC Flagged by Analyzer 0 % (0-5); Neutrophil # 7.57 X10^3/uL (2.7-7.7); Neutrophil % 68.1 % (47-70); Platelet Count 217 K/mm3 (150-450); RBC Distribution Width CV 13.2 % (11.6-14.6); RBC Distribution Width SD 43.4 fl (35.1-43.9); Red Blood Count 4.04 M/mm3 (4.2-5.4); White Blood Count 11.1 K/mm3 (4.4-11.0)
--- NOTE | 2019-11-11 20:18 | HP.PCM_ITS ---
- Problem List (1) SROM (spontaneous rupture of membranes) Status: Acute (2) Abnormal glucose affecting Status: Acute Comment: nl 3gtt (3) Supervision of other normal Status: Acute Comment: PRR NEPTALI 11/08/19 gender surprise PC [place] Spouse Nicholas (4) Status: Acute Qualifiers: Comment: Declines genetic, carrier, NTD. US normal with NEPTALI and anatomy History Date of Admission: 07/07/18 Final NEPTALI: 11/08/19 Gestational age: 40 Weeks and 3 Days History of this : This is a 28 year-old, , at 40 weeks gestational age presents IAL with SROM light meconium. she may have been leaking x 48 hours but ctx have just increased. ROM was positive today in office. Surgical History: Surgical History (Last Reviewed 11/11/19 @ 13:04 by Minnie Rivera) H/O knee surgery Z98.890 History of tonsillectomy Z98.890, Z90.89 Allergies Penicillins Allergy (Verified 11/11/19 13:04) Unknown was given the ATB when she had mono and she got hives. Home Medications: Home Medications vitamin#30 30 mg iron-10 mg iron-folic acid 1 mg-omg3 capsule 1 cap PO DAILY cap 06/16/18 Folic Acid 1 mg PO DAILY 09/26/18 Smoking Status: Never smoker Alcohol: None Number of Fetus(es): 1 NST - FHR Rate Baby A Baseline: 120 Variability:: Moderate Accelerations:: 15 x 15 Decelerations:: None NST Reactive:: Yes FHR Category:: Category I Uterine Activity:: q 2-3 History Past Pregnancies: Past Pregnancies previous term uncomplicated Labs: Mom's Current Diagnoses Other specified noninflammatory disorders of vagina 11/11/19 Mom's Labs & Results 11/11/19 11/11/19 11/11/19 13:13 14:00 14:00 WBC 11.1 H RBC 4.04 L Hgb 11.9 L Hct 36.6 L MCV 90.6 MCH 29.5 MCHC 32.5 RDW Std Deviation 43.4 RDW Coeff of Chema 13.2 Plt Count 217 MPV 11.1 Immature Gran % (Auto) 0.500 Neut % (Auto) 68.1 Lymph % (Auto) 22.5 Price % (Auto) 8.0 Eos % (Auto) 0.5 Baso % (Auto) 0.4 Absolute Neuts (auto) 7.6 Absolute Lymphs (auto) 2.50 Nucleated RBC % 0 Vag Amniotic Fld Detect POSITIVE H Blood Type O POSITIVE Antibody Screen NEGATIVE Course Did the patient receive Yes care? Labs Blood Type: O RH: POSITIVE RPR/VDRL/Syphilis Nonreactive Rubella status Immune HbSAg Negative Date Done: 08/27/19 Chlamydia Negative Gonorrhea Negative HIV/AIDS Non-Reactive Group B Strep: Negative Current Obstetrical History Gestational Diabetes No Incompetent Cervix No Infertility No IUGR No Macrosomia No Hypertension/Pre-eclampsia No Placenta Previa/Abruption No PTL/PROM No Uterine anomaly No Oligohydramnios No Polyhydramnios No Multiple gestation No Past Medical History Asthma No Diabetes No Hypertension No Heart disease No Mitral valve prolapse No Neurologic/Seizure disorder/ No Migraines Kidney disease No Liver disease No Varicosities No Clotting disorders/Hx of DVT No Thyroid Dysfunction No Other medical diseases No Psychiatric disorders No Major trauma No Abnormal PAP smear No Sleep apnea No Mammogram in the last 2 years No Social History Marital Status: Alleged father Nicholas Colon Hx Smoking No Smoking Status Never smoker Expected Delivery Method: Spontaneous Vaginal Review of Systems Constitutional: Denies: Fever, Malaise Eyes: Denies: Blurred vision, Vision Change HEENT: Denies: Head Aches, Visual Changes Cardiovascular: Denies: Chest Pain, Palpitations Respiratory: Denies: Cough, Shortness of Breath, Wheezing Gastrointestinal: Denies: Abdominal Pain, Diarrhea, Nausea, Vomiting Genitourinary: Denies: Dysuria, Hematuria Musculoskeletal: Denies: Joint Pain, Muscle pain Skin: Denies: Lesions, Rash Neurological: Denies: Blurred vision, Focal weakness, Headaches Psychiatric: Denies: Anxiety, Depression Endocrine: Denies: Heat/ Cold Intolerance Hematologic/ Lymphatic: Denies: Easy Bruising, Easy Bleeding Physical Exam Vitals: Vital Signs Temp Pulse BP Pulse Ox 97.3 F L 86 156/85 H 98 11/11/19 19:13 11/11/19 19:27 11/11/19 19:13 11/11/19 19:27 General: Alert, Oriented x3 HEENT: Atraumatic, Normocephalic. Negative for: Thyromegaly, Lymphadenopathy Cardiovascular: Regular rate Lungs: Normal air movement Abdomen: Soft, Non Tender, Gravid Neurological: Deep Tendon Reflexes 2+/4 and Symmetrical, Neuro grossly intact. 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 Negative for: Vulvar lesions Estimated gestational size: Appropriate for gestational size Presentation: Cephalic Cervix Dilation (cm): 2.5 Station: -2 Effacement (%): 50 Assessment/Plan All Active Problems (Last Reviewed 11/11/19 @ 13:04 by Minnie Rivera) SROM (spontaneous rupture of membranes) (Acute) Abnormal glucose affecting (Acute) Supervision of other normal (Acute) (Acute) GBS (group B Streptococcus carrier), +RV culture, currently (Resolved) Gastroenteritis (Resolved) Influenza (Resolved) PROM (premature rupture of membranes) (Resolved) (Resolved) Supervision of normal first (Resolved) UTI (urinary tract infection) during (Resolved) This is a 28 year-old, at 40 weeks gestational age presents IAL SROM. admit IAL srom no signs of chorio minimal intervention preferred gbs neg
--- NOTE | 2019-11-11 20:23 | PCM.OPRPT ---
Problem List (1) SROM (spontaneous rupture of membranes) Status: Acute (2) Abnormal glucose affecting Status: Acute Comment: nl 3gtt (3) Supervision of other normal Status: Acute Comment: PRR NEPTALI 11/08/19 gender surprise PC [place] Spouse Nicholas (4) Status: Acute Qualifiers: Comment: Declines genetic, carrier, NTD. US normal with NEPTALI and anatomy Vaginal Delivery Maternal Presentation: Active Labor, Spontaneous Rupture of Membranes 40w3d presents IAL SROM Amniotic Membrane Rupture Type: Spontaneous Amniotic Fluid Description: Lightly stained meconium Final NEPTALI: 11/08/19 Gestational age: 40 Weeks and 3 Days Date of Procedure: 11/11/19 Pre-Operative Diagnosis: ial Post-Operative Diagnosis: same Surgery/ Procedure Performed: Spontaneous Vaginal Delivery Type of Anesthesia: None Description of Procedure: Patient began pushing and delivered the head in the OREN presentation. The head was delivered atraumatically. The anterior and posterior shoulders delivered without complication followed by the rest of the and the was placed on the maternal abdomen. Delayed cord clamping was employed for approximately 60 seconds. Cord was clamped and cut and gentle traction was applied to the cord and the placenta delivered spontaneously immediately following it was noted to be intact with three-vessel cord. The perineum and vagina were inspected and noted to have no laceration. EBL was 100 cc. Patient and tolerated delivery well. Presentation: OREN Placental Delivery Description: Spontaneous Placenta Disposition: [facility] Cord Vessel Description: 3 Vessels Cord Entanglement: None Estimated Blood Loss: 100 Infant A gender: Male Episiotomy Description: None Laceration: None Medications given after delivery: IV Pitocin Complications: None Multi Select Codes - Urinary/Genital Urinary/Genital CPT Codes: 64618 Vaginal Delivery [facility]
[2019-11-11] MEDS: Oxytocin 30 units/NS 500 ml 30 UNITS/500 ML IV.SOLN 334 UNITS IV (21:22)
[2019-11-11] MEDS: Naproxen 250 MG Tablet 500 MG PO (22:09)
[2019-11-12 01:34] VITALS: BP 117/78; PULSE 82; RESP 18; TEMP 36.9
[2019-11-12 04:01] VITALS: BP 119/77; PULSE 91; RESP 18; TEMP 36.3
[2019-11-12] MEDS: Acetaminophen 500 MG Tablet 1000 MG PO ×2 (04:45→15:47)
[2019-11-12 07:58] VITALS: BP 132/80; PULSE 76; RESP 16; TEMP 36.9; O2SAT 97
--- NOTE | 2019-11-12 08:26 | PN.OBGYN_ITS ---
Patient Problems: Active and Suspected Problems (Last Reviewed 11/11/19 @ 13:04 by Minnie Rivera) SROM (spontaneous rupture of membranes) (Acute) Subjective: doing well no complaints pain controlled no CP SOB N V ambulating well tolerating po lochia moderate, going well - Physical Exam Vitals/I&O's: Vital Signs Temp Pulse Resp BP Pulse Ox 98.4 F 76 16 132/80 H 97 11/12/19 07:58 11/12/19 07:58 11/12/19 07:58 11/12/19 07:58 11/12/19 07:58 Oxygen Delivery Method Room Air Weight: 211 lb Body Mass Index (BMI) 30.2 Intake and Output for Last 24 Hours 11/10/19 11/11/19 11/12/19 23:59 23:59 23:59 Intake Total 752.83 / 752.83 333 / 333 Output Total 550 / 950 800 / 800 Balance 202.83 / -197.17 -467 / -467 General: Alert, Oriented x3 Laboratory Results 11/11/19 13:13: Vag Amniotic Fld Detect POSITIVE H 11/11/19 14:00: WBC 11.1 H, RBC 4.04 L, Hgb 11.9 L, Hct 36.6 L, MCV 90.6, MCH 29.5, MCHC 32.5, RDW Std Deviation 43.4, RDW Coeff of Chema 13.2, Plt Count 217, MPV 11.1, Immature Gran % (Auto) 0.500, Neut % (Auto) 68.1, Lymph % (Auto) 22.5, [place] % (Auto) 8.0, Eos % (Auto) 0.5, Baso % (Auto) 0.4, Absolute Neuts (auto) 7.6, Absolute Lymphs (auto) 2.50, Nucleated RBC % 0 11/11/19 14:00: Blood Type O POSITIVE, Antibody Screen NEGATIVE Current Medications Acetaminophen (Tylenol) 1,000 mg PO Q8H PRN PRN PRN Reason: Pain Score 1-3/10 Last Admin: 11/12/19 04:45 Dose: 1,000 mg Documented by: Bisacodyl (Dulcolax) 10 mg RECTAL UD PRN PRN Reason: If no BM Dibucaine (Dibucaine) 1 applic TOPICAL TID PRN PRN; Protocol PRN Reason: Discomfort Hydrocortisone (Hytone) 1 applic TOPICAL TID PRN PRN; Protocol PRN Reason: Discomfort Methylergonovine Maleate (Methergine) 0.2 mg IM X1 PRN PRN Reason: Excess bleeding/uterine atony Naproxen (Naprosyn) 500 mg PO Q8H PRN PRN PRN Reason: Pain Score 1-3/10 Last Admin: 11/11/19 22:09 Dose: 500 mg Documented by: Ondansetron HCl (Zofran) 4 mg IV Q4H PRN PRN PRN Reason: Nausea Oxycodone HCl (Oxyir) 5 - 10 mg PO Q4H PRN PRN PRN Reason: Pain Score 4-10/10 Multivit/Folic Acid/Iron (Prenatabs Fa) 1 tablet PO DAILY DARLING Senna/Docusate Sodium (Senokot-S, Barbie-Colace) 1 - 2 tablet PO DAILY PRN PRN PRN Reason: Constipation Simethicone (Mylicon) 80 mg PO PCHS PRN PRN Reason: Indigestion/Stomach pain Sodium Chloride () 5 - 15 ml IV UD PRN PRN Reason: SALINE FLUSH Medical Necessity - Tobacco Use Smoking Status: Never smoker Assessment/Plan All Active Problems (Last Reviewed 11/11/19 @ 13:04 by Minnie Rivera) SROM (spontaneous rupture of membranes) (Acute) Abnormal glucose affecting (Acute) Supervision of other normal (Acute) (Acute) GBS (group B Streptococcus carrier), +RV culture, currently (Resolved) Gastroenteritis (Resolved) Influenza (Resolved) PROM (premature rupture of membranes) (Resolved) (Resolved) Supervision of normal first (Resolved) UTI (urinary tract infection) during (Resolved) s/p PPD # 2 1. routine post delivery care 2. breast feeding- support given 3. rh positive 4. rubella immune
[2019-11-12] MEDS: Naproxen 250 MG Tablet 500 MG PO ×2 (10:22→19:56)
[2019-11-12 12:40] VITALS: BP 114/70; PULSE 79; RESP 18; TEMP 37.2; O2SAT 97
[2019-11-12 15:35] VITALS: BP 126/75; PULSE 81; RESP 16; TEMP 36.9; O2SAT 97
[2019-11-12 19:51] VITALS: BP 126/79; PULSE 83; RESP 18; TEMP 36.9; O2SAT 98
[2019-11-12] MEDS: Senna/Docusate Sodium 1 Tablet PO (19:55)
[2019-11-13 02:00] VITALS: BP 131/89; PULSE 71; RESP 16; TEMP 36.4
[2019-11-13] MEDS: Acetaminophen 500 MG Tablet 1000 MG PO (03:12)
--- NOTE | 2019-11-13 07:59 | DCINST_ITS ---
Discharge Diet: No Restrictions Discharge Activity: Return to Normal Activity, May not drive while taking narcotic pain medications., May Shower May resume sexual activity in: 4-6 weeks Call your doctor if your incision/area has: Continuous Slow Oozing, Sudden Increased Bleeding, Increased Pain/ Swelling, Increased Redness, Foul Smelling Discharge Additional Instructions: If you experience any of the following, contact your healthcare provider. * Bleeding that soaks a pad every hour for 2 hours * Fever 100.4 or higher * Unrelieved incision or abdominal pain * Swelling, redness, discharge or bleeding from your incision or episiotomy site * Your incision begins to separate * Problems urinating (including inability to urinate or burning while urinating). * Visual changes * Severe headache * Flu-like symptoms * Pain or redness in one of both of your breasts * Pain, warmth, tenderness or swelling in your legs, especially the calf area * Frequent nausea and vomiting * Symptoms of depression or anxiety If you experience any of the following, call 911 or go to the nearest Emergency Room. * Chest pain * Problems breathing * Seizure activity * Partial or complete paralysis of a body part, slurred speech, weakness or drooping of the face, or a sudden inability to walk or hold your balance Allergies/Adverse Reactions: Allergies Penicillins Allergy (Verified 11/11/19 13:04) Unknown was given the ATB when she had mono and she got hives. Medications to take at Discharge vitamin#30 30 mg iron-10 mg iron-folic acid 1 mg-omg3 capsule 1 cap PO DAILY cap 06/16/18 Folic Acid 1 mg PO DAILY 09/26/18 Please Follow Up With: Yani Campoverde MD - [phone] When: Call to make an appointment with your doctor in 6 weeks. If you had elevated Blood pressure or 4th degree laceration you will need to be seen in 2 weeks. Primary Care Physician: Bebeto Grover MD [Primary Care Provider] - Test Results: Test results from this visit will be discussed in further detail at your follow- up appointment, if applicable.
[2019-11-13 08:08] VITALS: BP 119/73; PULSE 81; RESP 18; TEMP 36.6
== END 2019-11-13 13:10 | disposition home or self-care (01) | DRG 807 ==
LOC: WP 13:49
PROVIDERS: Nurse Practitioner Women's Health; Admitting Provider Obstetrics & Gynecology; PCP Family Medicine; Visit Provider Obstetrics & Gynecology
DX: O77.0 Labor and delivery complicated by meconium in amniotic fluid (principal); Z37.0 Single live birth; Z3A.40 40 weeks gestation of pregnancy; Z88.0 Allergy status to penicillin
CPT/HCPCS: 59025; 59050; 84112; 85025; 86850; 86900; 86901; 99218; J7120; G0378

== ENCOUNTER → 2020-04-07 08:50 | Outpatient (CLI) | payer OTHER, SELFPAY ==
[2019-12-30 12:41] VITALS: BMI 26.6
[2020-04-07 10:00] LABS: Thyroid Stim Hormone (TSH) 1.35 uIU/mL (0.358-3.74)
== END ==
PROVIDERS: PCP Family Medicine; Referring Provider Family Medicine; Visit Provider Family Medicine
CPT/HCPCS: 36415; 84443

== ENCOUNTER → 2020-09-19 15:19 | Outpatient (CLI) | payer OTHER, SELFPAY ==
[2020-09-19 14:35] VITALS: BMI 25.6
--- NOTE | 2020-09-19 15:23 | US_ITS ---
INDICATION: early ob dating EXAMINATION: US OB Transvaginal TECHNIQUE: Transvaginal pelvic ultrasound was performed. Grayscale, spectral waveform, and color flow Doppler evaluation of the adnexa. COMPARISON: None. FINDINGS: UTERUS: Measures 10.8 x 7.2 x 6 cm. RIGHT OVARY: Measures 3.3 x 3.1 x 2.5 cm. Normal. LEFT OVARY: Measures 3 x 1.6 x 1.7 cm. Normal. FREE FLUID: None. INTRAUTERINE GESTATIONAL SAC(s) (size/shape): Single. Mean sac diameter of 1.9 cm. YOLK SAC: Identified POLE: Identified CRL 0.4 cm. ESTIMATED GESTATION AGE: 6 weeks 3 days. HEART MOTION: 121 bpm. PLACENTA: Not visualized due to age. SUBCHORIONIC HEMORRHAGE: None. AMNIOTIC FLUID: Qualitatively normal. US/Transvaginal w/Preg US IMPRESSION: Single live intrauterine . Estimated gestational age is 6 weeks 3 days. Electronically Signed: Julio Valadez MD at 19:10 EDT Tel , Service support ,
[2020-09-19 17:18] LABS: Absolute Lymphocyte Count 2.44 X10^3/uL (0.83-4.51); Absolute Neutrophil Count 4.4 X10^3/uL (2.0-7.7); Basophil# 0.04 X10^3/uL; Basophil% 0.5 % (0-1); Eosinophil# 0.07 X10^3/uL; Eosinophils% 0.9 % (0-5); Hematocrit 37.6 % (37-47); Hemoglobin 12.7 g/dL (12.0-15.0); Lymphocyte # 2.44 X10^3/ul (4.0); Lymphocyte % 32.8 % (19-41); Mean Corp Hgb Conc 33.8 g/dL (32-36); Mean Corpuscular Hgb 29.2 pg (27.0-32.0); Mean Corpuscular Volume 86.4 fL (81-99); Mean Platelet Vol. 10.1 fl (6.2-12.0); Monocyte% 6.7 % (0-10); NRBC Flagged by Analyzer 0 % (0-5); Neutrophil # 4.38 X10^3/uL (2.7-7.7); Platelet Count 255 K/mm3 (150-450); RBC Distribution Width CV 12.5 % (11.6-14.6); RBC Distribution Width SD 39.6 fl (35.1-43.9); Red Blood Count 4.35 M/mm3 (4.2-5.4); White Blood Count 7.4 K/mm3 (4.4-11.0)
[2020-09-19 17:21] LABS: Amphetamine Urine VISTA NEGATIVE (<1000 ng/mL); Barbiturate Urine VISTA NEGATIVE (< 200 ng/mL); Benzodiazepine Urine VISTA NEGATIVE (< 200 ng/mL); Cocaine Urine VISTA NEGATIVE (< 300 ng/mL); Ecstacy Urine VISTA NEGATIVE (< 500 ng/mL); Methadone Urine VISTA NEGATIVE (< 300 ng/mL); PCP Urine VISTA NEGATIVE (< 25 ng/mL); THC Urine VISTA NEGATIVE (< 50 ng/mL); Vista UDS pH Range 7
[2020-09-20 09:40] LABS: HIV - WCH Non-Reactive (Nonreactive); Hepatitis B Surface Antigen Non-Reactive (Nonreactive); Hepatitis C Antibody Non-Reactive (Nonreactive); Rubella IgG Reactive (Nonreactive)
[2020-09-22 03:07] LABS: Chlamydia By Nucleic Acid AMP Negative (Negative)
[2020-09-22 09:52] LABS: Gonococcus By Nucleic Acid AMP Negative (Negative)
[2020-09-26 17:00] LABS: HPV APTIMA, High Risk Negative (Negative)
== END ==
PROVIDERS: Obstetrics & Gynecology; PCP Family Medicine; Referring Provider Obstetrics & Gynecology; Visit Provider Obstetrics & Gynecology
DX: Z12.4 Encounter for screening for malignant neoplasm of cervix (principal); Z34.80 Encounter for supervision of other normal pregnancy, unspecified trimester
CPT/HCPCS: 36415; 76817; 80307; 85025; 86703; 86762; 86803; 86850; 86900; 86901; 87086; 87340; 87491; 87591; 87624; 88175; G0145

== ENCOUNTER 2020-12-07 12:42 | Emergency (ER) | payer OTHER, SELFPAY ==
[2020-11-18 09:29] VITALS: BMI 25.9
[2020-12-07 12:42] VITALS: BP 129/74; PULSE 94; RESP 16; TEMP 36.9; O2SAT 98; BMI 25.4
[2020-12-07 12:47] VITALS: O2SAT 98
--- NOTE | 2020-12-07 13:37 | EKG12_ITS ---
Test Reason : CHEST PRESSURE Blood Pressure : / mmHG Vent. Rate : 087 BPM Atrial Rate : 087 BPM P-R Int : 156 ms QRS Dur : 078 ms QT Int : 358 ms P-R-T Axes : 023 -02 -04 degrees QTc Int : 430 ms Normal sinus rhythm with sinus arrhythmia Minimal voltage criteria for LVH, may be normal variant Inferior infarct , age undetermined Abnormal ECG Confirmed by JEFFERY SHIN MD ([id number]), restaurant expeditor ELVIN HERNANDEZ ([id number]) on 12/09/2020 8:38:33 AM Referred By: GURDEEP Confirmed By:JEFFERY SHIN MD
--- NOTE | 2020-12-07 13:37 | CT_ITS ---
STUDY: CTA CHEST REASON FOR EXAM: Female, 29 years old. Chest pain, dyspnea. The patient is 17 weeks . Shortness of breath and chest pressure. RADIATION DOSAGE (If Supplied By Facility): CTDIvol = ( 12.51 ) mGy, DLP = ( 401.89 ) mGycm TECHNIQUE: The examination was performed with the intravenous administration of IV 100mL Isovue-370. Post-processing of the angiographic images was performed, with multiplanar reformation and 3D reconstruction. Individualized dose optimization techniques were used for this CT. COMPARISON: None. FINDINGS: Normal enhancement of the main pulmonary artery and right and left pulmonary arteries. Normal enhancement of the bilateral peripheral pulmonary arteries. There is no demonstrated pulmonary embolism. Normal thoracic aorta and visualized great vessels. There is no demonstrated aortic dissection. Normal heart and pericardium. Normal mediastinum. Normal hilar regions. Normal visualized trachea and bronchi. The lungs are well expanded. Normal pulmonary parenchyma. Normal pleura. Normal chest wall structures. Normal osseous structures. Normal visualized upper abdomen. CT/CTA Chest W/WO Contrast IMPRESSION: Normal CTA chest examination, without a demonstrated pulmonary embolism or arterial dissection. Electronically Signed: Logan Arnold MD at 14:47 EDT , Service support ,
--- NOTE | 2020-12-07 13:39 | EDS_ITS ---
HPI History of Present Illness Chief Complaint: Shortness of Breath Detail of Chief Complaint: Shortness of breath for several weeks that got worse today Informant: patient Narrative Narrative: Patient is 17 weeks . She is complaining of shortness of breath for the last 2 weeks off-and-on but today became more severe. She developed a chest heaviness and discomfort that is worse with breathing. Patient states she is been having a hard time laying flat ever since she became . She denies any complications of this . She is G3, P2 and has had no other complications with her pregnancies. No history of PE or DVT. No history of eclampsia. Patient denies recent illness although states that her 2 younger children at home have rhinovirus currently. She denies any Covid exposures. PFSH PFSH Home Medications vitamin#30 30 mg iron-10 mg iron-folic acid 1 mg-omg3 capsule 1 cap PO DAILY cap 06/16/18 [History Last Taken 11/09/19] folic acid 1 mg tablet 1 mg PO DAILY 10/18/20 [History Last Taken Unknown] PNV no.[id number] [ Gummies] tab PO 12/07/20 [History Last Taken Unknown] Allergy/AdvReac Type Severity Reaction Status Date / Time Penicillins Allergy Unknown Verified 12/07/20 12:44 Family History Grandfather Diabetes Surgical History H/O knee surgery History of tonsillectomy Social History adopted: No household members: family number of children: 2 current occupational status: employed 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 ROS ROS ED Constitutional Constitutional ED: Reports systems reviewed and no addt'l complaints, except as documented; Denies body ache(s), change in weight or chills Eyes Eyes: Denies acute decrease in peripheral vision, change in vision, double vision or loss of vision ENT ENT ED: Reports none; Denies ear pain, lip swelling, loss taste/smell, neck pain, otalgia or sore throat Cardiovascular Cardiovascular: Reports none and chest pain; Denies abdominal pain, chest pain with activity, leg edema, lightheadedness, palpitations, rapid heart rate or syncope Respiratory/Chest Respiratory/Chest: Reports none and dyspnea; Denies change in mental status, dry cough, hemoptysis, shortness of breath at rest or shortness of breath with exertion Gastrointestinal Gastrointestinal: Reports none; Denies abdominal pain, change in stool character, diarrhea, hematemesis, hematochezia, melena, rectal bleeding or vomiting Genitourinary Genitourinary ED: Reports none; Denies abdominal discomfort, anuria, dysuria, genital pain or polyuria Musculoskeletal Musculoskeletal: Reports none; Denies arthralgias, back pain, difficulty walking, extremity pain, muscle weakness or myalgias Integumentary Reports none; Denies abscess or rash Neurologic Neurologic: Reports none; Denies abnormal gait, confusion, focal weakness, frequent falls, headache(s), loss of vision, numbness, paresthesias, radicular pain, vertigo or weakness Psychiatric Psychiatric: Reports systems reviewed and no addt'l complaints, except as documented and none; Denies behavioral changes, confusion, difficulty concentrating, hallucinations, suicidal ideation, tactile hallucinations or visual hallucinations Endocrine Endocrinology: Denies none, cold intolerance, excessive sweating, fatigue or heat intolerance Hematologic/Lymphatic Hematologic/Lymphatic: Reports none; Denies anemia, easy bleeding or easy bruising Allergic/Immunologic Allergic/Immunologic ED: Denies as per HPI, none, lip swelling, mouth swelling, throat swelling, tongue swelling or hives EXAM Physical Exam Const Vital Signs: 12/07/20 12:42 12/07/20 12:47 12/07/20 14:49 Temperature 98.4 F Temperature Source Temporal Pulse Rate 94 91 Respiratory Rate 16 21 H Respiratory Effort Short of Breath Labored Blood Pressure 129/74 H 129/80 H Blood Pressure Mean 92 96 Pulse Ox 98 99 Oxygen Delivery Method Room Air Room Air Room Air Positive well nourished and well developed General Appearance ED: well developed and NAD HEENT Reports TM's clear and moist mucous membranes normocephalic and atraumatic; Negative for trauma or tenderness Tympanic Membrane ED: Yes TM's clear Eyes PERRL and EOMs intact bilaterally General Eye ED: Negative for pale conjunctiva or scleral icterus Neck no lymphadenopathy, supple and no JVD General: Negative for tenderness Chest Wall inspection of chest normal and palpation of chest normal Chest: Negative for tenderness Resp normal respiratory effort and clear to auscultation bilaterally Effort and Inspection: Negative for respiratory distress or pain with movement Auscultation: Negative for rhonchi, wheezes or diminished lung sounds Cardio regular rate, regular rhythm, S1 normal heart sound, S2 normal heart sound and no murmurs Peripheral Pulses: pulses 2+ throughout GI normal to inspection, nondistended, normoactive bowel sounds, soft to palpation, non-tender, non-distended and no masses Back/Spine no CVA tenderness and no thoracic nor lumbar tenderness Extremity normal to inspection General Extremety ED: Negative for edema General Extremity: Negative for edema Neuro oriented x3, CN's II-XII intact bilaterally, no sensory deficits noted and gait normal Sensorium / Orientation: awake, alert, oriented to person, oriented to place and oriented to time Motor Exam: strength 5/5 throughout and strength abnormal Psych mental status grossly normal Skin no rashes or lesions noted and no wounds MDM MDM MDM Narrative Medical decision making narrative: Etiology of patient's dyspnea is unclear. Her work-up in the emergency department is unremarkable other than a slightly elevated white blood cell count which may be related to being . There is no evidence of pneumonia on CT or evidence of PE. I do not feel she is having acute coronary syndrome. I do not believe she is having a - induced cardiomyopathy. Patient will be advised to follow-up with her primary care physician and [facility]. Patient advised to return if increasing shortness of breath or condition should worsen anyway. Lab Data Attestation: I reviewed the patient's lab results. Labs: Laboratory Results - last 24 hr 12/07/20 12/07/20 12/07/20 12:55 12:55 12:55 WBC 16.9 H RBC 4.34 Hgb 12.8 Hct 37.6 MCV 86.6 MCH 29.5 MCHC 34.0 RDW Std Deviation 40.8 RDW Coeff of [place]ma 13.1 Plt Count 240 MPV 10.1 Immature Gran % (Auto) 0.400 Neut % (Auto) 88.1 H Lymph % (Auto) 6.9 L Bollinger % (Auto) 4.3 Eos % (Auto) 0.1 Baso % (Auto) 0.2 Absolute Neuts (auto) 14.8 H Absolute Lymphs (auto) 1.17 Nucleated RBC % 0 Sodium 135 L Potassium 3.6 Chloride 104 Carbon Dioxide 24.0 Anion Gap 7 BUN 4 L Creatinine 0.51 L Estim Creat Clear Calc 174.42 Est GFR (MDRD) Af Amer 182 Est GFR (MDRD) Non-Af 150 BUN/Creatinine Ratio 7.9 L Glucose 103 Calcium 9.0 Troponin I < 0.015 B-Natriuretic Peptide 20.8 Urine Color Urine Clarity Urine pH Ur Specific [place] Urine Protein Urine Glucose (UA) Urine Ketones Urine Occult Blood Urine Nitrite Urine Bilirubin Urine Urobilinogen Ur Leukocyte Esterase Urine RBC Urine WBC Ur Squamous Epith Cells Urine Bacteria Urine Mucus 12/07/20 13:28 WBC RBC Hgb Hct MCV MCH MCHC RDW Std Deviation RDW Coeff of [place]ma Plt Count MPV Immature Gran % (Auto) Neut % (Auto) Lymph % (Auto) Bollinger % (Auto) Eos % (Auto) Baso % (Auto) Absolute Neuts (auto) Absolute Lymphs (auto) Nucleated RBC % Sodium Potassium Chloride Carbon Dioxide Anion Gap BUN Creatinine Estim Creat Clear Calc Est GFR (MDRD) Af Amer Est GFR (MDRD) Non-Af BUN/Creatinine Ratio Glucose Calcium Troponin I B-Natriuretic Peptide Urine Color Yellow Urine Clarity Clear Urine pH 7.0 Ur Specific [place] 1.005 Urine Protein Negative Urine Glucose (UA) Normal Urine Ketones Negative Urine Occult Blood Negative Urine Nitrite Negative Urine Bilirubin Negative Urine Urobilinogen Normal Ur Leukocyte Esterase Negative Urine RBC 0 SEEN Urine WBC 0 SEEN Ur Squamous Epith Cells 0 SEEN Urine Bacteria 0 SEEN Urine Mucus 0 SEEN Radiography Diagnostic Testing: Radiology Impression Chest CTA 12/07/20 13:37 IMPRESSION: Normal CTA chest examination, without a demonstrated pulmonary embolism or arterial dissection. Electronically Signed: Logan Arnold MD at 14:47 EDT , Service support , EKG Initial EKG: Interpretation: Sinus Rhythm Comments: Sinus rhythm with a ventricular rate of 87 bpm with no acute ST segment changes noted. Discharge Plan Triage Chief Complaint: Shortness of Breath ED Provider: Ungur,Remus Dx/Rx/DC Orders Clinical Impression: Chest pain of unknown etiology, Acute dyspnea Instructions: ED Chest Pain, Uncertain Cause, ED Dyspnea Prescriptions: No Action vitamin#30 30 mg iron-10 mg iron-folic acid 1 mg-omg3 capsule 30 mg iron-10 mg iron-1 mg capsule 1 cap PO DAILY RF: 0 folic acid 1 mg tablet 1 mg PO DAILY RF: 0 Gummies 400 mcg-35 mg- 25 mg-5 mg Tablet,Chewable PO RF: 0 Primary Care Provider: Bebeto Grover Referrals: Bebeto Grover MD [Primary Care Provider] - 3-5 Days Disposition Disposition: Home, self care
[2020-12-07 13:51] LABS: Absolute Lymphocyte Count 1.17 X10^3/uL (0.83-4.51); Absolute Neutrophil Count 14.8 X10^3/uL (2.0-7.7); Basophil# 0.03 X10^3/uL; Basophil% 0.2 % (0-1); Eosinophil# 0.02 X10^3/uL; Eosinophils% 0.1 % (0-5); Hematocrit 37.6 % (37-47); Hemoglobin 12.8 g/dL (12.0-15.0); Lymphocyte # 1.17 X10^3/ul (0.83-4.51); Lymphocyte % 6.9 % (19-41); Mean Corpuscular Hgb 29.5 pg (27.0-32.0); Mean Corpuscular Volume 86.6 fL (81-99); Mean Platelet Vol. 10.1 fl (6.2-12.0); Monocyte# 0.73 X10^3/uL; Monocyte% 4.3 % (0-10); NRBC Flagged by Analyzer 0 % (0-5); Neutrophil # 14.83 X10^3/uL (2.7-7.7); Neutrophil % 88.1 % (47-70); Platelet Count 240 K/mm3 (150-450); RBC Distribution Width CV 13.1 % (11.6-14.6); RBC Distribution Width SD 40.8 fl (35.1-43.9); Red Blood Count 4.34 M/mm3 (4.2-5.4); White Blood Count 16.9 K/mm3 (4.4-11.0)
[2020-12-07 13:56] LABS: Bacteria 0 SEEN /hpf (None Seen); Mucous, Urine 0 SEEN /hpf (<or=2+); Red Blood Cells-Urine 0 SEEN /hpf (0-5); Squamous Epithelial Cells - UA 0 SEEN /hpf (5-10); White Blood Cells 0 SEEN /hpf (0-5)
[2020-12-07] MEDS: 0.9% Normal Saline 1,000 ML 150 ML IV (13:56)
[2020-12-07 13:59] LABS: Color, Urine Yellow (Yellow); Glucose, Dipstick Normal (Normal); Ketone-Dipstick Negative (Negative); Leukocyte Esterase-Dipstick Negative /ul (Negative); Nitrite-Dipstick Negative (Negative); Occult Blood-Urine Negative /ul (Negative); Protein-Dipstick Negative (Negative); Specific Gravity, Urine 1.005 (1.002-1.030); Urine Bilirubin Dipstick Negative (Negative); Urine Clarity Clear (Clear); Urine Urobilinogen Normal (Normal)
[2020-12-07 14:01] LABS: Anion Gap 7 (5-15); BUN 4 mg/dL (7-18); BUN/Creat Ratio 7.9 RATIO (10-20); Chloride 104 mmol/L (98-107); Creatinine, Serum 0.51 mg/dL (0.55-1.02); EST Glomerular Filtration Rate 150 mL/min (>60); Est Glom Filt Rate - Afr Amer 182 mL/min (>60); Estimated Creatinine Clearance 174.42 ml/min; Glucose 103 mg/dL (74-106); Potassium 3.6 mmol/L (3.5-5.1); Sodium Level 135 mmol/L (136-145)
[2020-12-07 14:11] LABS: BNP,B-Type NATRIURETIC PEPTIDE 20.8 pg/mL (0-100)
[2020-12-07 14:49] VITALS: BP 129/80; PULSE 91; RESP 21; O2SAT 99
== END 2020-12-07 15:03 | disposition home or self-care (01) ==
PROVIDERS: Emergency Provider Emergency Medicine; PCP Family Medicine
DX: O26.892 Other specified pregnancy related conditions, second trimester (principal); R07.9 Chest pain, unspecified; R06.02 Shortness of breath; R06.00 Dyspnea, unspecified; Z3A.17 17 weeks gestation of pregnancy
CPT/HCPCS: 71275; 80048; 81001; 83880; 84484; 85025; 87426; 93005; 96360; 99284; J7030; Q9967; A4216

== ENCOUNTER → 2020-12-22 13:57 | Outpatient (CLI) | payer OTHER, SELFPAY ==
[2020-10-18 08:01] VITALS: BMI 25.9
[2020-12-13 09:37] VITALS: BMI 25.4
--- NOTE | 2020-12-22 13:58 | US_ITS ---
STUDY: SECOND AND THIRD TRIMESTER OBSTETRICAL ULTRASOUND REASON FOR EXAM: Female, 30 years old. Anatomy scan. LMP: 08/12/2020. TECHNIQUE: Transabdominal and Transvaginal TECHNICAL QUALITY: Adequate. PRIOR ULTRASOUND: 09/19/2020. FINDINGS: There is a single intrauterine fetus. The fetus is in a cephalic presentation. There is demonstrated cardiac activity with a heart rate of 145 bpm. There is a normal amniotic fluid volume. The largest amniotic fluid pocket measures 5.6 cm. The placenta is posterior in location and is not low lying. There are Grade 0 placental changes. The cervix measures 4.1 cm in length. The bilateral adnexal regions are normal. BIOMETRY: BPD: 4.09 cm: 18 weeks, 2 days HC: 17.09 cm: 19 weeks, 4 days AC: 15.37 cm: 20 weeks, 3 days FL: 3.25 cm: 20 weeks, 1 days CI: 65.02 FL/BPD: 79.45 FL/HC: 19.04 FL/AC: 21.16 HC/AC: 1.11 age by current US: 19 weeks, 4 days. NEPTALI by current US: 05/14/2021. Estimated weight: 335 grams, +/- 50 grams, 76 %. age by prior US: 19 weeks, 6 days. NEPTALI by prior US: 05/12/2021.. Age by LMP: 18 weeks, 2 days. NEPTALI by LMP: 05/05/2021.. ANATOMY: Gender: Indeterminant Cranium: Normal lateral ventricles. Normal choroid plexus. Normal cerebellum. Normal cisterna magna. Normal face, nose and lips. Chest: Normal 4-chamber heart. Abdomen/Pelvis: Normal diaphragm. Normal stomach. Normal abdominal wall. Normal cord insertion. Normal 3 vessel cord. Normal kidneys. Normal bladder. Spine: Normal cervical spine. Normal thoracic spine. Normal lumbar spine. Normal sacrum. Extremities: Normal bilateral upper extremities. Normal bilateral lower extremities. IMPRESSION: 1. Live single intrauterine 19 weeks, 4 days. NEPTALI is 05/14/2021. There is adequate interval growth since prior ultrasound. 2. EFW 335 g. 3. Adequate amniotic fluid. 4. Posterior grade 0 placenta. 5. VERTEX presentation. 6. No visualized abnormality. Electronically Signed: Ryan Larios DO at 16:19 EDT Tel [phone], Service support , STUDY: SECOND AND THIRD TRIMESTER OBSTETRICAL ULTRASOUND REASON FOR EXAM: Female, 30 years old. Anatomy scan. LMP: 08/12/2020. TECHNIQUE: Transabdominal and Transvaginal TECHNICAL QUALITY: Adequate. PRIOR ULTRASOUND: 09/19/2020. FINDINGS: There is a single intrauterine fetus. The fetus is in a cephalic presentation. There is demonstrated cardiac activity with a heart rate of 145 bpm. There is a normal amniotic fluid volume. The largest amniotic fluid pocket measures 5.6 cm. The placenta is posterior in location and is not low lying. There are Grade 0 placental changes. The cervix measures 4.1 cm in length. The bilateral adnexal regions are normal. BIOMETRY: BPD: 4.09 cm: 18 weeks, 2 days HC: 17.09 cm: 19 weeks, 4 days AC: 15.37 cm: 20 weeks, 3 days FL: 3.25 cm: 20 weeks, 1 days CI: 65.02 FL/BPD: 79.45 FL/HC: 19.04 FL/AC: 21.16 HC/AC: 1.11 age by current US: 19 weeks, 4 days. NEPTALI by current US: 05/14/2021. Estimated weight: 335 grams, +/- 50 grams, 76 %. age by prior US: 19 weeks, 6 days. NEPTALI by prior US: 05/12/2021.. Age by LMP: 18 weeks, 2 days. NEPTALI by LMP: 05/05/2021.. ANATOMY: Gender: Indeterminant Cranium: Normal lateral ventricles. Normal choroid plexus. Normal cerebellum. Normal cisterna magna. Normal face, nose and lips. Chest: Normal 4-chamber heart. Abdomen/Pelvis: Normal diaphragm. Normal stomach. Normal abdominal wall. Normal cord insertion. Normal 3 vessel cord. Normal kidneys. Normal bladder. Spine: Normal cervical spine. Normal thoracic spine. Normal lumbar spine. Normal sacrum. Extremities: Normal bilateral upper extremities. Normal bilateral lower extremities. US/Transvaginal w/Preg US IMPRESSION: 1. Live single intrauterine 19 weeks, 4 days. NEPTALI is 05/14/2021. There is adequate interval growth since prior ultrasound. 2. EFW 335 g. 3. Adequate amniotic fluid. 4. Posterior grade 0 placenta. 5. VERTEX presentation. 6. No visualized abnormality. Electronically Signed: Ryan Larios DO at 16:19 EDT Tel [phone], Service support ,
--- NOTE | 2020-12-22 13:58 | US_ITS ---
STUDY: SECOND AND THIRD TRIMESTER OBSTETRICAL ULTRASOUND REASON FOR EXAM: Female, 30 years old. Anatomy scan. LMP: 08/12/2020. TECHNIQUE: Transabdominal and Transvaginal TECHNICAL QUALITY: Adequate. PRIOR ULTRASOUND: 09/19/2020. FINDINGS: There is a single intrauterine fetus. The fetus is in a cephalic presentation. There is demonstrated cardiac activity with a heart rate of 145 bpm. There is a normal amniotic fluid volume. The largest amniotic fluid pocket measures 5.6 cm. The placenta is posterior in location and is not low lying. There are Grade 0 placental changes. The cervix measures 4.1 cm in length. The bilateral adnexal regions are normal. BIOMETRY: BPD: 4.09 cm: 18 weeks, 2 days HC: 17.09 cm: 19 weeks, 4 days AC: 15.37 cm: 20 weeks, 3 days FL: 3.25 cm: 20 weeks, 1 days CI: 65.02 FL/BPD: 79.45 FL/HC: 19.04 FL/AC: 21.16 HC/AC: 1.11 age by current US: 19 weeks, 4 days. NEPTALI by current US: 05/14/2021. Estimated weight: 335 grams, +/- 50 grams, 76 %. age by prior US: 19 weeks, 6 days. NEPTALI by prior US: 05/12/2021.. Age by LMP: 18 weeks, 2 days. NEPTALI by LMP: 05/05/2021.. ANATOMY: Gender: Indeterminant Cranium: Normal lateral ventricles. Normal choroid plexus. Normal cerebellum. Normal cisterna magna. Normal face, nose and lips. Chest: Normal 4-chamber heart. Abdomen/Pelvis: Normal diaphragm. Normal stomach. Normal abdominal wall. Normal cord insertion. Normal 3 vessel cord. Normal kidneys. Normal bladder. Spine: Normal cervical spine. Normal thoracic spine. Normal lumbar spine. Normal sacrum. Extremities: Normal bilateral upper extremities. Normal bilateral lower extremities. IMPRESSION: 1. Live single intrauterine 19 weeks, 4 days. NEPTALI is 05/14/2021. There is adequate interval growth since prior ultrasound. 2. EFW 335 g. 3. Adequate amniotic fluid. 4. Posterior grade 0 placenta. 5. VERTEX presentation. 6. No visualized abnormality. Electronically Signed: Ryan Larios DO at 16:19 EDT Tel [phone], Service support , STUDY: SECOND AND THIRD TRIMESTER OBSTETRICAL ULTRASOUND REASON FOR EXAM: Female, 30 years old. Anatomy scan. LMP: 08/12/2020. TECHNIQUE: Transabdominal and Transvaginal TECHNICAL QUALITY: Adequate. PRIOR ULTRASOUND: 09/19/2020. FINDINGS: There is a single intrauterine fetus. The fetus is in a cephalic presentation. There is demonstrated cardiac activity with a heart rate of 145 bpm. There is a normal amniotic fluid volume. The largest amniotic fluid pocket measures 5.6 cm. The placenta is posterior in location and is not low lying. There are Grade 0 placental changes. The cervix measures 4.1 cm in length. The bilateral adnexal regions are normal. BIOMETRY: BPD: 4.09 cm: 18 weeks, 2 days HC: 17.09 cm: 19 weeks, 4 days AC: 15.37 cm: 20 weeks, 3 days FL: 3.25 cm: 20 weeks, 1 days CI: 65.02 FL/BPD: 79.45 FL/HC: 19.04 FL/AC: 21.16 HC/AC: 1.11 age by current US: 19 weeks, 4 days. NEPTALI by current US: 05/14/2021. Estimated weight: 335 grams, +/- 50 grams, 76 %. age by prior US: 19 weeks, 6 days. NEPTALI by prior US: 05/12/2021.. Age by LMP: 18 weeks, 2 days. NEPTALI by LMP: 05/05/2021.. ANATOMY: Gender: Indeterminant Cranium: Normal lateral ventricles. Normal choroid plexus. Normal cerebellum. Normal cisterna magna. Normal face, nose and lips. Chest: Normal 4-chamber heart. Abdomen/Pelvis: Normal diaphragm. Normal stomach. Normal abdominal wall. Normal cord insertion. Normal 3 vessel cord. Normal kidneys. Normal bladder. Spine: Normal cervical spine. Normal thoracic spine. Normal lumbar spine. Normal sacrum. Extremities: Normal bilateral upper extremities. Normal bilateral lower extremities. US/OB Anatomy Scan IMPRESSION: 1. Live single intrauterine 19 weeks, 4 days. NEPTALI is 05/14/2021. There is adequate interval growth since prior ultrasound. 2. EFW 335 g. 3. Adequate amniotic fluid. 4. Posterior grade 0 placenta. 5. VERTEX presentation. 6. No visualized abnormality. Electronically Signed: Ryan Larios DO at 16:19 EDT Tel [phone], Service support ,
== END ==
PROVIDERS: PCP Family Medicine; Visit Provider Obstetrics & Gynecology
DX: Z36.89 Encounter for other specified antenatal screening (principal); Z3A.19 19 weeks gestation of pregnancy
CPT/HCPCS: 76805; 76817

== ENCOUNTER → 2021-02-06 15:49 | Outpatient (CLI) | payer OTHER, SELFPAY ==
[2021-01-10 09:58] VITALS: BMI 25.4
[2021-02-06 16:23] LABS: Absolute Lymphocyte Count 2.17 X10^3/uL (0.83-4.51); Absolute Neutrophil Count 6.2 X10^3/uL (2.0-7.7); Basophil# 0.03 X10^3/uL; Basophil% 0.3 % (0-1); Eosinophil# 0.06 X10^3/uL; Eosinophils% 0.6 % (0-5); Hematocrit 35.4 % (37-47); Lymphocyte # 2.17 X10^3/ul (0.83-4.51); Mean Corp Hgb Conc 33.9 g/dL (32-36); Mean Corpuscular Hgb 30.5 pg (27.0-32.0); Mean Corpuscular Volume 89.8 fL (81-99); Mean Platelet Vol. 10.1 fl (6.2-12.0); Monocyte# 0.89 X10^3/uL; Monocyte% 9.4 % (0-10); NRBC Flagged by Analyzer 0 % (0-5); Neutrophil # 6.23 X10^3/uL (2.7-7.7); Neutrophil % 66.2 % (47-70); Platelet Count 280 K/mm3 (150-450); Red Blood Count 3.94 M/mm3 (4.2-5.4); White Blood Count 9.4 K/mm3 (4.4-11.0)
[2021-02-06 16:33] LABS: Glucose Challenge Gest 1H 50g 76 mg/dL (70-140)
[2021-02-07 16:01] LABS: Syphilis Antibodies Non-reactive
== END ==
PROVIDERS: PCP Family Medicine; Referring Provider Obstetrics & Gynecology; Visit Provider Obstetrics & Gynecology
DX: Z13.1 Encounter for screening for diabetes mellitus (principal)
CPT/HCPCS: 36415; 82950; 85025; 86780

== ENCOUNTER → 2021-03-22 12:26 | Outpatient (CLI) | payer OTHER, SELFPAY ==
--- NOTE | 2021-03-22 12:29 | US_ITS ---
STUDY: SECOND AND THIRD TRIMESTER OBSTETRICAL ULTRASOUND REASON FOR EXAM: Female, 30 years old . growth. LMP: 08/07/2020. TECHNIQUE: Transabdominal TECHNICAL QUALITY: Adequate. PRIOR ULTRASOUND: Comparison is made with prior study dated 12/22/2020. FINDINGS: There is a single intrauterine fetus. The fetus is in a cephalic presentation. There is demonstrated cardiac activity with a heart rate of 157 bpm. There is a normal amniotic fluid volume. The largest amniotic fluid pocket measures 3.7 cm. The amniotic fluid index (CUCA) is 11.1 cm. The placenta is posterior and fundal in location There are Grade 1 placental changes. The cervix measures 5 cm in length. The adnexal regions are not visualized. BIOMETRY: BPD: 8.1 cm: 32 weeks, 3 days HC: 10.4 cm: 32 weeks, 4 days AC: 30.44 cm: 34 weeks, 2 days FL: 6.6 on the: 33 weeks, 6 days CI: 78% FL/BPD: 81% FL/HC: FL/AC: 22% HC/AC: 0.99 age by current US: 33 weeks, 2 days. NEPTALI by current US: 05/08/2021. Estimated weight: 2337 grams, +/- 350 grams, 86 %. age by prior US: 32 weeks, 3 days. NEPTALI by prior US: 05/14/2021. Age by LMP: 32 weeks, 3 days. NEPTALI by LMP: 05/14/2021. US/OB Limited With Biometrics IMPRESSION: Single live intrauterine gestation with a mean gestational age of 32 weeks and 3 days. The measurements obtained today are within the normal expected range. Electronically Signed: Logan Arnold MD at 15:29 EDT , Service support ,
== END ==
PROVIDERS: PCP Family Medicine; Referring Provider Obstetrics & Gynecology; Visit Provider Obstetrics & Gynecology
DX: U07.1 COVID-19 (principal)
CPT/HCPCS: 76816

== ENCOUNTER → 2021-04-03 09:48 | Outpatient (CLI) | payer OTHER, SELFPAY ==
[2021-04-03 10:50] LABS: ALB/GLOB Ratio 0.7 RATIO (0.9-2.4); AST(SGOT) 11 U/L (15-37); Alanine Aminotransfer ALT/SGPT 11 U/L (13-56); Albumin, Serum 2.6 g/dL (3.2-5.0); Alkaline Phosphatase 120 U/L (45-117); Anion Gap 8 (5-15); BUN 6 mg/dL (7-18); BUN/Creat Ratio 12.3 RATIO (10-20); Calcium,Total 8.4 mg/dL (8.5-10.1); Chloride 106 mmol/L (98-107); Creatinine, Serum 0.49 mg/dL (0.55-1.02); EST Glomerular Filtration Rate 157 mL/min (>60); Est Glom Filt Rate - Afr Amer 190 mL/min (>60); Globulin 3.9 g/dL (2.2-4.2); Glucose 85 mg/dL (74-106); Potassium 3.7 mmol/L (3.5-5.1); Protein, Total 6.5 g/dL (6.4-8.2); Sodium Level 137 mmol/L (136-145)
== END ==
PROVIDERS: Obstetrics & Gynecology; PCP Family Medicine; Referring Provider Nurse Practitioner Women's Health; Visit Provider Nurse Practitioner Women's Health
DX: O99.719 Diseases of the skin and subcutaneous tissue complicating pregnancy, unspecified trimester (principal); L29.9 Pruritus, unspecified; Z3A.00 Weeks of gestation of pregnancy not specified
CPT/HCPCS: 36415; 80053

== ENCOUNTER → 2021-04-19 12:34 | Outpatient (CLI) | payer OTHER, SELFPAY ==
--- NOTE | 2021-04-19 13:01 | US_ITS ---
STUDY: SECOND AND THIRD TRIMESTER OBSTETRICAL ULTRASOUND REASON FOR EXAM: Female, 30 years old . growth. TECHNIQUE: Transabdominal PRIOR ULTRASOUND: Comparison is made with prior study 03/22/2021. FINDINGS: There is a single intrauterine fetus. The fetus is in a cephalic presentation. There is demonstrated cardiac activity with a heart rate of 138 bpm. There is a normal amniotic fluid volume. The largest amniotic fluid pocket measures 4.7 cm. The amniotic fluid index (CUCA) is 13.8 cm. The placenta is fundal and posterior in location. There are Grade 2 placental changes. The cervix measures 5.1 cm in length. The adnexal regions are not visualized. BPD: 8.85 cm cm = 35 weeks, 5 day(s) HC: 32.8 cm cm = 37 weeks, 1 day(s) AC: 34.33 cm cm = 38 weeks, 1 day(s) FL: 7.16 cmcm = 36 weeks, 4 day(s) EGA by ultrasound: 36 weeks 6 day(s) NEPTALI by ultrasound: 05/11/2021 Estimated weight: 3233 grams Weight percentile: 80% US/OB Limited With Biometrics IMPRESSION: Living intrauterine with estimated gestational age of 36 weeks and 6 days.. Electronically Signed: Logan Arnold MD at 12:09 EDT , Service support ,
== END ==
PROVIDERS: PCP Family Medicine; Visit Provider Obstetrics & Gynecology
DX: O98.513 Other viral diseases complicating pregnancy, third trimester (principal); U07.1 COVID-19; Z3A.32 32 weeks gestation of pregnancy
CPT/HCPCS: 76816; 87081

== ENCOUNTER 2021-05-15 06:55 | Inpatient (IN) | payer OTHER, SELFPAY ==
[2021-05-15] VITALS (28 sets, daily range): BP systolic 115–154; BP diastolic 66–93; PULSE 70–93; RESP 18; TEMP 36.1–37.2; O2SAT 97; BMI 28.7
--- NOTE | 2021-05-15 07:24 | PCM.HP.BLA ---
History and Physical Date of Admission: 05/15/21 Intake Vital Signs 05/10/21 15:29 Height 5 ft 10 in Weight: 203 lb BMI 29.1 BP 136/80 H Intake Visit Reasons: 39 WK OB Chief Complaint: est ob American History Professor Required: No Is patient in pain?: No Allergies Penicillins Allergy (Verified 05/01/21 16:14) Unknown Medications vitamin#30 30 mg iron-10 mg iron-folic acid 1 mg-omg3 capsule 1 cap PO DAILY cap 06/16/18 [History Confirmed 05/10/21] folic acid 1 mg tablet 1 mg PO DAILY 10/18/20 [History Confirmed 05/10/21] PNV no.[id number] [ Gummies] tab PO 12/07/20 [History Confirmed 05/10/21] aspirin 81 mg chewable tablet 81 mg PO DAILY 04/03/21 [History Confirmed 05/10/21] Last Menstral Period: 07/29/20 Zika: Zika virus screening: Negative : No PFSH PFS Medical History (Updated 05/10/21 @ 16:[address] 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 Pregancy History 3 Elective abortions Hx Para 2 Spontaneous abortions Hx # Term Pregnancies 2 Ectopic pregnancies Hx # Pregnancies Multiple births # of living children 2 Past Pregnancies Del. Date Name GA/Weeks Outcome Route Bth Weight Gen Labor Lgth Anesthesia Del Locatn Provider FOB 07/08/18 Brynlee 40 live - full term 6lbs 11oz Female 10 hours none [facility] JAYASHREE Nicholas 11/11/19 Emigdio 40 live - full term 8lbs 7oz Male 6 hours none [facility] JAYASHREE Nicholas Delivery Date: 07/08/18 PROM Essence Gaytan Delivery Date: 11/11/19 lightly stained meconium Essence Gaytan HPI 39 WK OB Details: JED LAGUNAS is a 30 year old who presents for routine OB visit. OB Visit NEPTALI Calculator Estimated Delivery Date Method Current WG Current Estimate 05/14/21 Ultrasound #1 39w 3d Other Estimates 05/05/21 LMP (Certain) 40w 5d Expected Delivery Route/Plan Labor Preferences- CB/BF classes: no labor support person: Nicholas labor intervention preferences: [] pain management options preferred: limited intervention cut cord/dad catch: yes : yes PP control planned: vasectomy discussed possible routes of delivery and associated risks: [] special requests: [] Specific Issue/Plans covid status: immune, recent infection in flu vaccine: given tdap vaccine: 02/06 rhogam: NA LARC form signed: yes movement and labor precautions reviewed. Problem list reviewed and updated with the most current plan of care details and appropriate orders placed. Relevant counseling for the gestational age provided. Continue routine care and follow up unless otherwise noted in visit notes/problem list details Initial Weight: 175 lb Date EGA Weight BP Urine Prot Glucose FHR FuHt Pres Dilation Effaced St Visit Note 09/19/20 6w 1d 178 lb 8 oz (+3 lb 8 oz) 112/76 125 GP - CRL 5mm. Unable to determine NEPTALI based on US. Formal dating scan ordered. 10/18/20 10w 2d 181 lb 2 oz (+6 lb 2 oz) 108/70 Negative Negative 160 MH-NO Vb, LOF. Some nausea but manageable. Brief US to confirm live IUP, FHT. Discussed anxiety, declines medication. MH-NO Vb, LOF. Some nausea but manageable. Brief US to confirm live IUP, FHT. Discussed anxiety, declines medication. Diarrhea:several liquid stools per day:will see PCP. 11/18/20 14w 5d 177 lb (+2 lb) 120/68 Negative Negative 150 SM- no vb cramping, getting over a GI bug right now. 12/13/20 18w 2d 179 lb 4 oz (+4 lb 4 oz) 118/62 Negative Negative 151 MH-had bad headache in night last night. Took time for tylenol and heat to be helpful. OK today. Reviewed migraine management. Anatomy US next week 01/10/21 22w 2d 185 lb (+10 lb) 100/70 Negative Negative 145 SM- no vb crmaping diarrhea resolving 02/06/21 26w 1d 189 lb 4 oz (+14 lb 4 oz) 122/72 Negative Negative 145 26 GP - no LOF, VB, DFM, ctx. 28w labs nl. TDAP given. 02/20/21 28w 1d 194 lb 2 oz (+19 lb 2 oz) 118/60 Negative Negative 160 28 MH-NO VB, LOF. Good FM. Larc. 03/20/21 32w 1d 120/82 Negative Negative 140 32 Cephalic GP - no LOF, VB, DFM, ctx. Recently had COVID - discussed growth US and ASA 04/03/21 34w 1d 197 lb (+22 lb) 100/80 140 34 Cephalic SM- no vb lof good fm no regular ctx recommend cholestasis labs discussed pruritis 04/19/21 36w 3d 199 lb 8 oz (+24 lb 8 oz) 132/78 Trace Negative 143 36 Cephalic 0 MH-No VB, LOF. NO CTX. Good FM. GBS 04/28/21 37w 5d 200 lb (+25 lb) 120/88 Negative Negative 130 36 Cephalic 0.5 SM- no vb lof good fm no reuglar ctx 05/01/21 38w 1d 202 lb (+27 lb) 122/72 Negative Negative 145 37 Cephalic SM- no vb lof good fm no regular ctx 05/10/21 39w 3d 203 lb (+28 lb) 136/80 Negative Negative 140 39 Cephalic 1 Sm- no vb lof good fm no regular ctx ACOG First Trimester First Trimester: Second Trimester Second Trimester: Signs and Symptoms of Labor, Selecting a care provider, Reproductive Life Planning & Contreception, Care Planning, Depression/Anxiety and Intimate Partner Violence; Discussed Tobacco Cessation Third Trimester Third Trimester: Pain Management Plans, Labor support person(s), Immediate Larc, Circumcision preference and Signs and Symptoms of Preeclampsia Diagnostics Diagnostics Diagnostics: Glucose 1 Hr 50 gm 76 mg/dL (70-140) Hgb 12.0 g/dL (12.0-15.0) Hct 35.4 % (37-47) L Details: HIV: Urine Culture: Sequential Screen: NIPT Screen: ROS Const Reports system reviewed and no additional complaints, except as documented Card Reports system reviewed and no additional complaints, except as documented Resp Reports system reviewed and no additional complaints, except as documented GI Reports system reviewed and no additional complaints, except as documented and Reports nausea Reports system reviewed and no additional complaints, except as documented Musc Reports system reviewed and no additional complaints, except as documented Exam Const General: cooperative, healthy appearing, comfortable and anxious HENMT Head: normal to inspection Nose: external nose normal Face and sinus: normal facial exam Neck Neck: normal visual inspection, full ROM and no lymphadenopathy Thyroid: thyroid normal Chest Chest palpation & inspection: normal inspection of the chest Resp Effort & Inspection: normal respiratory effort GI Inspection: normal to inspection Palpation: soft and other (gravid uterus) Other: infant vertex and appropriate size for gestational age Other: Cervical Exam: Extrem General: pedal edema Results POC Urinalysis 2 Dip (Clinic) Office Urine Glucose Negative Last Edit by Minnie Torres on 05/10/21 15:37 Office Urine Protein Negative Last Edit by Minnie Torres on 05/10/21 15:37 Coding Level of Care Code OB Routine Diagnoses Influenza vaccination administered at current visit Z23 Pruritus of O99.719; L29.9 Lab test positive for detection of COVID-19 virus U07.1 Anxiety F41.9 Short interval between pregnancies affecting , antepartum O09.899 Supervision of other normal Z34.80 Z3A.39 Weeks of gestation: 39 weeks Assessment and Plan Assessment and Plan (1) Influenza vaccination administered at current visit: Status: Acute Comment: 04/19/21 (2) Pruritus of : Status: Acute Comment: cholestasis labs ordered (3) Lab test positive for detection of COVID-19 virus: Status: Acute Comment: start 81mg ASA, 32 growth nl, needs 36 wk growth US. discussed considering IOL at 40 weeks (4) Anxiety: Status: Acute Comment: declines medication; 02/20 stable (5) Short interval between pregnancies affecting , antepartum: Status: Acute (6) Supervision of other normal : Status: Acute Comment: PRR NEPTALI: 05/05/21 surprise PC: Emigdio Bermeo Spouse: Nicholas (7) : Status: Acute Qualifiers: Weeks of gestation: 39 weeks Qualified Code(s): Z3A.39 - 39 weeks gestation of Comment: declines carrier and genetic, ntd screening. nl anatomy. GBS neg Plan Details Other Orders: Orders: POC Urinalysis 2 Dip (Clinic) Today UPDATE- I have seen the patient and performed any clinically relevant updates to the history and physical exam. Yani Campoverde MD
[2021-05-15 07:47] LABS: Absolute Neutrophil Count 6.4 X10^3/uL (2.0-7.7); Basophil# 0.04 X10^3/uL; Basophil% 0.4 % (0-1); Eosinophil# 0.08 X10^3/uL; Eosinophils% 0.9 % (0-5); Hemoglobin 11.2 g/dL (12.0-15.0); Lymphocyte % 19.8 % (19-41); Mean Corp Hgb Conc 33.9 g/dL (32-36); Mean Corpuscular Hgb 30.4 pg (27.0-32.0); Mean Corpuscular Volume 89.4 fL (81-99); Mean Platelet Vol. 10.3 fl (6.2-12.0); Monocyte# 0.73 X10^3/uL; NRBC Flagged by Analyzer 0 % (0-5); Neutrophil # 6.39 X10^3/uL (2.7-7.7); Neutrophil % 70.3 % (47-70); Platelet Count 226 K/mm3 (150-450); RBC Distribution Width CV 12.9 % (11.6-14.6); RBC Distribution Width SD 42.5 fl (35.1-43.9); Red Blood Count 3.69 M/mm3 (4.2-5.4); White Blood Count 9.1 K/mm3 (4.4-11.0)
[2021-05-15] MEDS: Lactated Ringers 1,000 ML 50 ML IV (07:49)
[2021-05-15] MEDS: Oxytocin 30 units/NS 500 ml 30 UNITS/500 ML IV.SOLN IV (07:50)
[2021-05-15] MEDS: 0.9% Normal Saline Single 100 ML IV.SOLN. INTRA-UTER (08:02)
[2021-05-15] MEDS: Calcium Carbonate 500 MG Tablet 1000 MG PO (10:16)
[2021-05-15] MEDS: Lactated Ringers 500 ML 999 ML IV ×2 (14:54→15:48)
[2021-05-15] MEDS: Amnioinfusion- 0.9% NS 1,000 ML IV.SOLN. 1000 ML INTRA-UTER (15:20)
[2021-05-15] MEDS: Ondansetron 4 MG/2 ML Vial IV (15:26)
[2021-05-15] MEDS: Oxytocin 30 units/NS 500 ml 30 UNITS/500 ML IV.SOLN 334 UNITS IV (16:16)
--- NOTE | 2021-05-15 16:23 | OP.PCM_ITS ---
Assessment & Plan (1) Influenza vaccination administered at current visit: COMMENT: 04/19/21 (2) Pruritus of : COMMENT: cholestasis labs ordered (3) Lab test positive for detection of COVID-19 virus: COMMENT: start 81mg ASA, 32 growth nl, needs 36 wk growth US. discussed c onsidering IOL at 40 weeks (4) Anxiety: COMMENT: declines medication; 02/20 stable (5) Short interval between pregnancies affecting , antepartum: (6) Supervision of other normal : COMMENT: PRR NEPTALI: 05/05/21 surprise PC: Emigdio Bermeo Spouse: Nicholas (7) : QUALIFIERS: Weeks of gestation: 39 weeks Qualified Code(s): Z3A.39 - 39 weeks gestation of COMMENT: declines carrier and genetic, ntd screening. nl anatomy. GBS neg (8) Vaginal delivery: COMMENT: IOL h/o covid, SM girl Kelly Maternal Data Information NEPTALI Calculator Estimated Delivery Date Method Current WG Current Estimate 05/14/21 Ultrasound #1 40w 1d Other Estimates 05/05/21 LMP (Certain) 41w 3d Vaginal Delivery Operative Information Pre-Operative Diagnosis: IOL h/o covid in Post-Operative Diagnosis: same Surgery / Procedure Performed: Spontaneous Vaginal Delivery Type of Anesthesia: None Special Medications: none Estimated Blood Loss: 100 Fluids Replaced: crystalloid Findings Description of Procedure: Patient began pushing and delivered the head in the OREN presentation. The head was delivered atraumatically . The anterior and posterior shoulders delivered without complication followed by the rest of the infant and the infant was placed on the maternal abdomen. Delayed cord clamping was employed for approximately 60 seconds. Cord was clamped and cut and gentle traction was applied to the cord and the placenta delivered spontaneously immediately following it was noted to be intact with three-vessel cord. The perineum and vagina were inspected and noted to have no laceration. EBL was 100 cc. Patient and infant tolerated delivery well. Presentation: OREN Amniotic Membrane Rupture Type: Artificial Amniotic Fluid Description: Clear Placental Delivery Description: Spontaneous Placenta Disposition: [facility] Cord Vessel Description: 3 Vessels Cord Entanglement: None Delayed Cord Clamping: Yes Post Vaginal Delivery Medications Given After Delivery: IV Pitocin Episiotomy Description: None Laceration: None Complication Complications: None Procedures Urinary/Genital [id number]: [id number] Vaginal Delivery [facility]
--- NOTE | 2021-05-15 16:24 | PCM.DC ---
Discharge Instructions Diet Discharge Diet: No restrictions Activity Discharge Activity: Return to Normal Activity, May Not Drive (while taking narcotic pain medications.) and May Shower May resume sexual activity in: 4-6 weeks Dressing / Incision Call your doctor if your incision/area has: Continuous Slow Oozing, Sudden Increased Bleeding, Increased Pain/ Swelling, Increased Redness and Foul Smelling Discharge Follow Up Care Please Follow Up With: Yani Campoverde MD When: Call [phone] to make an appointment with your doctor in 6 weeks. If you had elevated blood pressure or 4th degree laceration, you will need to be seen in 2 weeks. Test Results: Test results from this visit will be discussed in further detail at your follow-up appointment, if applicable. Discharge Plan Admission Admit Date/Time: 05/15/21 06:55 Primary Reason for Your Visit: vaginal delivery Attending Provider: Yani Campoverde Primary Care Provider: Bebeto Grover Discharge Orders/Prescriptions Prescriptions: No Action vitamin#30 30 mg iron-10 mg iron-folic acid 1 mg-omg3 capsule 30 mg iron-10 mg iron-1 mg capsule 1 cap PO DAILY RF: 0 folic acid 1 mg tablet 1 mg PO DAILY RF: 0 aspirin 81 mg tablet,chewable 81 mg PO DAILY RF: 0 Gummies 400 mcg-35 mg- 25 mg-5 mg Tablet,Chewable 1 tab PO DAILY RF: 0 Referrals / Follow Up: Bebeto Grover MD [Primary Care Provider] - Disposition Disposition (needs filled in before D/C Order can be placed): Home, Self Care
[2021-05-15] MEDS: Acetaminophen 500 MG Tablet 1000 MG PO (17:15)
[2021-05-15] MEDS: 0.9% Saline Lock 10 ML Syringe IV (18:46)
[2021-05-15] MEDS: Naproxen 500 MG Tablet PO (21:16)
[2021-05-16 04:45] VITALS: BP 124/81; PULSE 81; RESP 18; TEMP 36.3
[2021-05-16] MEDS: Acetaminophen 500 MG Tablet 1000 MG PO (04:52)
--- NOTE | 2021-05-16 07:39 | PCM.PN.OB ---
Subjective Subjective Patient doing well without complaints. Tolerating PO. Ambulating and voiding without difficulty. Feeding well. Denies chest pain, shortness of breath, calf pain/swelling, fevers, chills, lightheadedness. Objective Data Objective Data Vital Signs: Vital Signs Temp Pulse Resp BP Pulse Ox 97.4 F L 81 18 124/81 H 97 05/16/21 04:45 05/16/21 04:45 05/16/21 04:45 05/16/21 04:45 05/15/21 18:14 Oxygen Delivery Method Room Air Weight: 200 lb Body Mass Index (BMI) 28.7 Intake & Output: Intake and Output for Last 24 Hours 05/14/21 05/15/21 05/16/21 23:59 23:59 23:59 Intake Total / Balance / Lab / Micro Data Result Diagrams: 05/15/21 07:35 Labs: Laboratory Results - last 24 hr 05/15/21 07:35: WBC 9.1, RBC 3.69 L, Hgb 11.2 L, Hct 33.0 L, MCV 89.4, MCH 30.4, MCHC 33.9, RDW Std Deviation 42.5, RDW Coeff of Chema 12.9, Plt Count 226, MPV 10.3, Immature Gran % (Auto) 0.600, Neut % (Auto) 70.3 H, Lymph % (Auto) 19.8, Kaufman % (Auto) 8.0, Eos % (Auto) 0.9, Baso % (Auto) 0.4, Absolute Neuts (auto) 6.4, Absolute Lymphs (auto) 1.80, Nucleated RBC % 0 05/15/21 07:35: Blood Type O POSITIVE, Antibody Screen NEGATIVE Physical Exam Const alert and oriented x3 HEENT normocephalic Eyes PERRL Neck full ROM Resp normal respiratory effort GI soft to palpation GI Narrative: FF below U Assessment & Plan (1) Vaginal delivery: COMMENT: IOL h/o covid, SM girl Kelly PLAN: s/p PPD # 1 1. routine post delivery care 2. breast feeding- support given 3. rh positive 4. rubella immune 5. Considering home today
[2021-05-16 08:47] VITALS: BP 130/76; PULSE 86; RESP 16; TEMP 36.4; O2SAT 95
[2021-05-16 12:51] VITALS: BP 123/78; RESP 16; TEMP 36.1
[2021-05-16 16:40] VITALS: BP 129/73; RESP 16; TEMP 36.3
[2021-05-16 19:59] VITALS: BP 133/61; PULSE 82; RESP 16; TEMP 36.3; O2SAT 97
== END 2021-05-16 20:40 | disposition home or self-care (01) | DRG 807 ==
PROVIDERS: Admitting Provider Obstetrics & Gynecology; PCP Family Medicine; Referring Provider Obstetrics & Gynecology; Visit Provider Obstetrics & Gynecology
DX: O99.72 Diseases of the skin and subcutaneous tissue complicating childbirth (principal); Z37.0 Single live birth; L29.9 Pruritus, unspecified; Z86.16 Personal history of COVID-19; Z3A.39 39 weeks gestation of pregnancy; Z67.90 Unspecified blood type, Rh positive
CPT/HCPCS: 59025; 59050; 85025; 86850; 86900; 86901; 99218; J7030; J7120; A4216; G0378; J2405

== ENCOUNTER → 2022-01-31 | Outpatient (CLI) | payer OTHER, SELFPAY ==
[2022-01-31 11:46] LABS: Alkaline Phosphatase 127 U/L (45-117); GGTP 8 U/L (5-55)
== END | disposition home or self-care (01) ==
LOC: LAB 10:26
PROVIDERS: PCP Family Medicine; Visit Provider Family Medicine
DX: R79.89 Other specified abnormal findings of blood chemistry (principal)
CPT/HCPCS: 36415; 82977; 84075

== ENCOUNTER 2022-02-15 13:33 | Emergency (ER) | payer OTHER, SELFPAY ==
[2022-02-15 13:34] VITALS: BP 130/87; PULSE 79; RESP 20; TEMP 36.6; O2SAT 99; BMI 25.9
--- NOTE | 2022-02-15 14:23 | EKG12_ITS ---
Test Reason : CP Blood Pressure : / mmHG Vent. Rate : 073 BPM Atrial Rate : 073 BPM P-R Int : 178 ms QRS Dur : 080 ms QT Int : 370 ms P-R-T Axes : 014 003 018 degrees QTc Int : 407 ms Normal sinus rhythm Possible Inferior infarct , age undetermined Abnormal ECG Confirmed by MARGARITA SKELTON, JEAN ([id number]), features editor LAURIE FRANCIS ([id number]) on 02/16/2022 9:44:55 AM Referred By: TONE Confirmed By:JEAN AVILA MD
--- NOTE | 2022-02-15 14:25 | EDS_ITS ---
HPI History of Present Illness Chief Complaint: Chest Pain Detail of Chief Complaint: Chest pain that started about 2-1/2 weeks ago Informant: patient Narrative Narrative: Patient presents with chest discomfort that started 2-1/2 weeks ago. She describes a continuous achy discomfort in the center of her chest with intermittent episodes of sharp stabbing pain that can last up to 15 seconds. Patient denies nausea or vomiting. Patient currently is nursing a 9-month-old. She denies recent travel or surgery. No history of PE or DVT. No family history of heart disease. Patient states that today she started having some numbness and tingling in her left arm and she became more concerned. Patient denies recent illness or fever or cough. Prior Similar Symptoms: No PFSH PFSH Medical History Congestion of nasal sinus Lab test positive for detection of COVID-19 virus Home Medications PNV 153-FA 400 mcg-om3 35 mg-dha 25 mg-epa 5 mg-fish oil chew tablet ( Gummies) 1 tab PO DAILY 12/07/20 [History Last Taken 05/11/21] Allergy/AdvReac Type Severity Reaction Status Date / Time Penicillins Allergy Unknown Verified 02/15/22 13:38 Family History Grandfather Diabetes Surgical History H/O knee surgery History of tonsillectomy Social History (Updated 06/27/21 @ 15:09 by Meaghan Moore) adopted: No household members: family number of children: 3 current occupational status: employed 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 [employer] history of recent travel: No Smoking Status: Never smoker alcohol intake: current details: social substance use type: does not use caffeine: No what type of physical activity do you participate in: none frequency: 1-2 times per week seatbelt use: always do you feel safe at home: Yes additional social history: 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 [employer] ROS ROS ED Review of Systems ROS Unobtainable: other Constitutional Constitutional ED: Reports lethargy; Denies chills, fever(s), sweats or weight loss Eyes Eyes: Denies blurry vision, change in vision or diplopia ENT ENT ED: Denies rhinorrhea or sore throat Cardiovascular Cardiovascular: Reports chest pain; Denies orthopnea or racing heartbeat Respiratory/Chest Respiratory/Chest: Reports dyspnea and dyspnea on exertion; Denies cough, orthopnea or sputum Gastrointestinal Gastrointestinal: Denies abdominal pain, diarrhea, nausea or vomiting Genitourinary Genitourinary ED: Denies dysuria, hematuria or urinary frequency Musculoskeletal Musculoskeletal: Denies arthralgias, back pain, myalgias or neck pain Integumentary Denies abscess, Abrasions or rash Neurologic Neurologic: Denies headache(s) or weakness Psychiatric Psychiatric: Denies anxiety, depression or suicidal thoughts Endocrine Endocrinology: Denies polydipsia, polyphagia or polyuria Hematologic/Lymphatic Hematologic/Lymphatic: Denies easy bleeding, easy bruising or lymphadenopathy Allergic/Immunologic Allergic/Immunologic ED: Denies mouth swelling, tongue swelling or urticaria EXAM Physical Exam Const Vital Signs: 02/15/22 13:34 Temperature 97.9 F Temperature Source Temporal Pulse Rate 79 Respiratory Rate 20 H Blood Pressure 130/87 H Blood Pressure Mean 101 Pulse Ox 99 Oxygen Delivery Method Room Air Positive well nourished and well developed General Appearance ED: well developed and NAD HEENT Reports TM's clear and moist mucous membranes normocephalic and atraumatic; Negative for trauma or tenderness Tympanic Membrane ED: Yes TM's clear Eyes PERRL and EOMs intact bilaterally General Eye ED: Negative for pale conjunctiva or scleral icterus Neck no lymphadenopathy, supple and no JVD General: Negative for tenderness Chest Wall inspection of chest normal and palpation of chest normal Chest: Negative for tenderness Resp normal respiratory effort and clear to auscultation bilaterally Effort and Inspection: Negative for respiratory distress or pain with movement Auscultation: Negative for rhonchi, wheezes or diminished lung sounds Cardio regular rate, regular rhythm, S1 normal heart sound, S2 normal heart sound and no murmurs Peripheral Pulses: pulses 2+ throughout GI normal to inspection, nondistended, normoactive bowel sounds, soft to palpation, non-tender, non-distended and no masses Back/Spine no CVA tenderness and no thoracic nor lumbar tenderness Extremity normal to inspection General Extremety ED: Negative for edema General Extremity: Negative for edema Neuro oriented x3, CN's II-XII intact bilaterally, no sensory deficits noted and gait normal Sensorium / Orientation: awake, alert, oriented to person, oriented to place and oriented to time Motor Exam: strength 5/5 throughout and strength abnormal Psych mental status grossly normal Skin no rashes or lesions noted and no wounds Heart Score History: Slightly/Non-Suspicious ECG: Normal Age: </= 45 years Risk Factors: No Risk Factors Troponin: </= Normal Limit Score: 0 MDM MDM MDM Narrative Medical decision making narrative: IV line established on arrival. 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 Lab work- up obtained showed a normal CBC with differential as well as normal chemistries. Troponin is less than 3. D-dimer was normal 0.31. Chest x-ray showed nothing acute. At this point etiology of her discomfort is unclear. She is low risk for acute coronary syndrome. Heart score is essentially 0. Patient advised to follow-up with primary care physician in 3 to 5 days. She is to return if exertional chest pain, increasing shortness of breath, or condition should worsen anyway. Lab Data Attestation: I reviewed the patient's lab results. Labs: Laboratory Results - last 24 hr 02/15/22 02/15/22 02/15/22 14:35 14:35 14:35 WBC 7.4 RBC 4.45 Hgb 12.6 Hct 38.7 MCV 87.0 MCH 28.3 MCHC 32.6 RDW Std Deviation 41.1 RDW Coeff of Chema 13.1 Plt Count 256 MPV 10.2 Immature Gran % (Auto) 0.300 Neut % (Auto) 55.1 Lymph % (Auto) 34.1 Maverick % (Auto) 8.1 Eos % (Auto) 1.6 Baso % (Auto) 0.8 Absolute Neuts (auto) 4.1 Absolute Lymphs (auto) 2.52 Nucleated RBC % 0 D-Dimer Quant (PE/DVT) 0.31 Sodium 140 Potassium 3.9 Chloride 108 H Carbon Dioxide 28.0 Anion Gap 4 L BUN 13 Creatinine 0.73 Estim Creat Clear Calc 119.64 Est GFR (MDRD) Af Amer 119 Est GFR (MDRD) Non-Af 99 BUN/Creatinine Ratio 17.9 Glucose 88 Calcium 9.0 Troponin I High Sens < 3 L Radiography Chest X-Ray - ED: 1 View Diagnostic Testing: Clinical Impression(s) from Imaging Studies Chest X-Ray 02/15/22 14:34 IMPRESSION: Normal x-ray examination of the chest. Electronically Signed: Logan Arnold MD at 14:53 EDT , 1 view chest x-ray obtained interpreted by myself as no acute disease process. Radiology in agreement. EKG Initial EKG: Attestation: I personally reviewed and interpreted this EKG as follows: Comments: Sinus rhythm with a ventricular rate of 73 bpm with no acute ST segment changes Discharge Plan Triage Chief Complaint: Chest Pain ED Provider: Obdulio Renee Dx/Rx/DC Orders Clinical Impression: Chest pain Instructions: ED Chest Pain, Uncertain Cause Prescriptions: No Action Gummies 400 mcg-35 mg- 25 mg-5 mg Tablet,Chewable 1 tab PO DAILY Primary Care Provider: Bebeto Grover Referrals: Bebeto Grover MD [Primary Care Provider] - 3-5 Days Disposition Disposition: Home, Self Care
--- NOTE | 2022-02-15 14:34 | RAD_ITS ---
STUDY: X-RAY CHEST REASON FOR EXAM: Female, 31 years old. Chest pain TECHNIQUE: Single AP portable view of the chest. COMPARISON: None. FINDINGS: EKG electrodes are seen. The lungs are clear and expanded. There is no demonstrated pleural abnormality. Normal size heart. Normal mediastinum and april. Normal visualized pulmonary arteries. Normal visualized aortic arch and descending thoracic aorta. Normal visualized thoracic spine. Normal visualized ribs, clavicles, and shoulders. There is no demonstrated abnormality of the visualized soft tissue structures of the upper abdomen. RAD/Chest 1 View (Portable) IMPRESSION: Normal x-ray examination of the chest. Electronically Signed: Logan Arnold MD at 14:53 EDT ,
[2022-02-15] MEDS: 0.9% Normal Saline 1,000 ML 150 ML IV (14:36)
[2022-02-15 14:44] LABS: Absolute Lymphocyte Count 2.52 X10^3/uL (0.83-4.51); Absolute Neutrophil Count 4.1 X10^3/uL (2.0-7.7); Basophil# 0.06 X10^3/uL; Basophil% 0.8 % (0-1); Eosinophil# 0.12 X10^3/uL; Eosinophils% 1.6 % (0-5); Hematocrit 38.7 % (37-47); Hemoglobin 12.6 g/dL (12.0-15.0); Lymphocyte # 2.52 X10^3/ul (0.83-4.51); Lymphocyte % 34.1 % (19-41); Mean Corp Hgb Conc 32.6 g/dL (32-36); Mean Corpuscular Hgb 28.3 pg (27.0-32.0); Mean Platelet Vol. 10.2 fl (6.2-12.0); Monocyte% 8.1 % (0-10); NRBC Flagged by Analyzer 0 % (0-5); Neutrophil # 4.06 X10^3/uL (2.7-7.7); Neutrophil % 55.1 % (47-70); Platelet Count 256 K/mm3 (150-450); RBC Distribution Width CV 13.1 % (11.6-14.6); RBC Distribution Width SD 41.1 fl (35.1-43.9); Red Blood Count 4.45 M/mm3 (4.2-5.4); White Blood Count 7.4 K/mm3 (4.4-11.0)
[2022-02-15 15:01] LABS: Anion Gap 4 (5-15); BUN 13 mg/dL (7-18); BUN/Creat Ratio 17.9 RATIO (10-20); Chloride 108 mmol/L (98-107); Creatinine, Serum 0.73 mg/dL (0.55-1.02); D-Dimer Quantitative (DVT/PE) 0.31 FEU/ug/m (0.27-0.49); EST Glomerular Filtration Rate 99 mL/min (>60); Est Glom Filt Rate - Afr Amer 119 mL/min (>60); Estimated Creatinine Clearance 119.64 ml/min; Glucose 88 mg/dL (74-106); Potassium 3.9 mmol/L (3.5-5.1); Sodium Level 140 mmol/L (136-145); Troponin-I HS (w/2H Reflex) < 3 pg/mL (3.0-54.0)
[2022-02-15 16:41] LABS: Reflex Troponin-HS? (from REC) Y
== END 2022-02-15 15:21 | disposition home or self-care (01) ==
PROVIDERS: Emergency Provider Emergency Medicine; PCP Family Medicine; Visit Provider Emergency Medicine
DX: R07.9 Chest pain, unspecified (principal); Z86.16 Personal history of COVID-19; R20.0 Anesthesia of skin
CPT/HCPCS: 71045; 80048; 84484; 85025; 85379; 93005; 96360; 99283; J7030; A4216

== ENCOUNTER → 2023-05-10 | Outpatient (CLI) | payer OTHER, SELFPAY | END | disposition home or self-care (01) | LOC: LABSPEC 12:12 | PROVIDERS: PCP Family Medicine; Referring Provider Physician Assistant Surgical; Visit Provider Physician Assistant Surgical | DX: N39.0 Urinary tract infection, site not specified (principal) | CPT/HCPCS: 87077; 87086; 87088 ==

== ENCOUNTER → 2024-07-06 | Outpatient (CLI) | payer OTHER, SELFPAY | END | disposition home or self-care (01) | LOC: LABSPEC 15:00 | PROVIDERS: PCP Family Medicine; Referring Provider Obstetrics & Gynecology; Visit Provider Obstetrics & Gynecology | DX: N89.8 Other specified noninflammatory disorders of vagina (principal) | CPT/HCPCS: 87070; 87077; 87205 ==